=== PATIENT | female | born 1945 | race Caucasian/White ===

== ENCOUNTER → 2016-06-09 | Outpatient (CLI) | payer OTHER, MEDICARE ==
[~2016-06-09] MED LIST: ACET-1311 PO; ANAS1TAB6 PO; AREDIA IV; ASCA500 PO; BIOTCAP2 PO; BISA-16 PO; CALC625T13 PO; CHEMO INFUSION IV; DENOINJ; DENOINJ INJ; DOCU-94 PO; FAMO10TA16 PO; IBUP-1050 PO; MCLIN; MCLIN INH; MCRK20 PO; NYSS5 PO; ONDA8TAB6 PO; OPTIRAY 320 IV PRN; POLY1POW2 PO; POTA20TA16 PO; POTTAB2 PO; PRED10TA PO; PROC1TAB5 PO; ZOLE1INJ IV
--- NOTE | 2016-06-09 13:45 | DIAGNOSTIC IMAGING REPORT ---
CT OF THE CHEST WITH IV CONTRAST CLINICAL HISTORY: Breast cancer. COMPARISON STUDY: Chest CT July 16, 2015. TECHNIQUE: Following IV administration of 93 mL of Optiray-320, helical axial images of the chest were obtained. Images were viewed in the axial, sagittal and coronal planes. IV contrast was administered without complication. FINDINGS: No enlarged axillary, mediastinal or hilar lymph nodes are present. Cardiac size is at the upper limits of normal. There is no pericardial effusion. Central airways are patent. There is no consolidation. No pneumothorax or pleural effusion is noted. There is a 4 mm calcified granuloma within the right lower lobe. A 3 mm right middle lobe nodule shown on image [id number] and a 2 mm subpleural right upper lobe nodule shown image [address] of July 16, 2015. There are no new pulmonary nodules. Diffuse heterogeneity of visualized skeletal structures is noted. A expansile destructive lesion of the posterior right ninth rib is noted. Bony expansion with suspected extrapleural extension has slightly progressed since exam July 16, 2015. The abdomen and pelvis will be reported separately. IMPRESSION: 1. Slight increase in bony expansion and soft tissue extension of the right ninth rib metastasis since CT of July 16, 2015. 2. Diffuse heterogeneity of visualized skeletal structures. The finding is nonspecific although diffuse metastatic disease could have this imaging appearance. 3. No change in several small right lung nodules. No new lung nodules. No thoracic lymphadenopathy. Electronically signed by: Immanuel Garcia M.D. 06/09/2016 1:43 PM Dictated Date/Time: 06/09/2016 1:27 PM
--- NOTE | 2016-06-09 13:45 | DIAGNOSTIC IMAGING REPORT ---
CT ABD/PELVIS IV AND ORAL CONT CLINICAL HISTORY: BREAST CA COMPARISON STUDY: 07/16/2015 TECHNIQUE: Following the IV administration of 93 mL of Optiray-320, CT scan of the abdomen and pelvis was performed from the lung bases to the proximal femurs. Images are reviewed in the axial, sagittal, and coronal planes. IV contrast was administered without complication. CT DOSE: 708.57 mGy.cm FINDINGS: Lower chest: There are expansile destructive changes involving the right ninth rib. Liver: There is mild hepatic steatosis. No focal masses are visualized. Gallbladder: Unremarkable. Spleen: Normal in size and attenuation. Pancreas: No masses are visualized Adrenal glands: Unremarkable. Kidneys: There is stable upper pole left renal cortical scarring. Small renal cysts are visualized. There is a 2 mm nonobstructing right renal calculus. Bowel: There are no transition zones indicate bowel obstruction. There is no acute diverticulitis. There are no findings to indicate acute appendicitis. There is mild rectal wall thickening. Peritoneum: There is no intraperitoneal free air or abdominal ascites. Vasculature: The abdominal aorta is normal in course and caliber. Adenopathy: There are mildly prominent ileocolic lymph nodes, similar to the preceding study. Pelvic viscera: There is mild rectal wall thickening. Skeletal structures: There is an abnormal trabecular pattern of the bone. The findings could be secondary to myeloma, diffuse metastatic disease, or herringbone osteoporosis IMPRESSION: 1. Stable abnormal trabecular pattern of the bone 2. Expansile destructive lesion involving the right ninth rib, slightly progressive when compared the prior July 2015 study. No evidence of bowel obstruction. No evidence of free air 4. Mild rectal wall thickening 5. Mildly prominent ileocolic lymph nodes, unchanged the prior study Electronically signed by: Vinny Hoyt M.D. 06/09/2016 1:44 PM Dictated Date/Time: 06/09/2016 1:37 PM
--- NOTE | 2016-06-09 15:04 | DIAGNOSTIC IMAGING REPORT ---
WHOLE BODY BONE SCAN HISTORY: Breast carcinoma BREAST CA RADIOTRACER: 25.4 mCi Tc-99m MDP STUDY/IMAGES: Planar anterior and posterior whole body imaging was performed 3 hours following the intravenous administration of radiotracer. COMPARISON: None. FINDINGS: Increased activity involving the posterior right 10th rib. This is consistent with patient's known metastatic deposit at that site. Increased symmetrical activity about skull possibly secondary to respiratory change versus hyperostosis frontalis. Mild degenerative change of the osseous structures of the shoulders hips and knees. No abnormal soft tissue activity characteristics. IMPRESSION: Metastatic change involving the right 10th rib posteriorly. Bone scan otherwise is negative for additional metastatic deposits. Electronically signed by: Froy Ridley M.D. 06/09/2016 3:02 PM Dictated Date/Time: 06/09/2016 2:58 PM
== END | disposition home or self-care (01) ==
LOC: C.CTS 10:26
PROVIDERS: ATTEND Nurse Practitioner Family
DX: C50.919 Malignant neoplasm of unspecified site of unspecified female breast (principal); M89.8X8 Other specified disorders of bone, other site; R91.8 Other nonspecific abnormal finding of lung field

== ENCOUNTER 2016-07-28 11:21 | Inpatient (IN) | payer OTHER, MEDICARE ==
[~2016-07-28] VITALS: Ht 162.6 cm; Wt 74.2 kg
[~2016-07-28 11:21] MED LIST changes: -ACET-1311 PO; -AREDIA IV; -ASCA500 PO; -BIOTCAP2 PO; -BISA-16 PO; -CALC625T13 PO; -CHEMO INFUSION IV; -DENOINJ; -DENOINJ INJ; -DOCU-94 PO; -FAMO10TA16 PO; -IBUP-1050 PO; -MCLIN; -MCLIN INH; -MCRK20 PO; -NYSS5 PO; -ONDA8TAB6 PO; -OPTIRAY 320 IV PRN; -POLY1POW2 PO; -POTA20TA16 PO; -POTTAB2 PO; -PRED10TA PO; -PROC1TAB5 PO; -ZOLE1INJ IV
[2016-07-28] MEDS ORDERED: BISA-16 PO (12:41)
[2016-07-28] MEDS ORDERED: ONDA8TAB6 PO (12:41)
[2016-07-28] MEDS ORDERED: PROC1TAB5 PO (12:41)
[2016-07-28] MEDS ORDERED: POLY1POW2 PO (12:41)
[2016-07-28 13:53] VITALS: BP 117/75; PULSE 92; TEMP 36.5; O2SAT 95
[2016-07-28] MEDS ORDERED: ACETAMINOPHEN 325 MG TAB PO PRN (14:00)
[2016-07-28] MEDS ORDERED: ALUMINUM/MAGNESIUM/SIMETH (MAALOX MAX) 30 ML UDC PO PRN (14:00)
[2016-07-28] MEDS ORDERED: MAGNESIUM HYDROXIDE SUSP 30 ML UDC PO PRN (14:00)
[2016-07-28] MEDS ORDERED: POLYETHYLENE (MIRALAX) 17 GM PACK PO PRN (14:00)
--- NOTE | 2016-07-28 14:05 | History and Physical ---
History & Physical Date & Time of Service: Jul 28, 2016 at 13:47 Chief Complaint: Hypercalcemia Primary Care Physician: Willie Gutierrez D.O. History of Present Illness Source: patient, family 71F with a PMHx of Metastatic breast cancer (T9 and T10 ribs) was sent over from the cancer center for hypercalcemia by Dr. oDlan. Pt is complaining of dizziness, decrease appetite, weakness and reports vomiting up large amounts of food. She is also constipated by the last BM was yesterday, a soft stool of small amount. Pt denies abdominal pain. pt denies having a cardiac history of any sort. According to pt her calcium has been slowly increasing and she has been getting an injection for the calcium. She was told that her injection would take 4-5 days to take affect. She last got the injection on Tuesday but she wasn't sure. She doesn't know the name of the medication. *Update*: on chart review pt appears to have received Monthly doses of Zometa at around the of each month. This is likely the injection she received on Tuesday. ROS: No chest pain, no SOB, no muscle cramps, no muscle aches, no psychosis. PMHx: Other than breast CA, no significant PMHx. Meds: Anastrazole + nausea meds SHx: Lives w . Social History Smoking Status: Never Smoker Allergies Coded Allergies: No Known Allergies (Unverified , 05/19/16) Home Medications Scheduled Anastrozole (Anastrozole), 1 TAB PO QAM Prochlorperazine Maleate (Compazine), 10 MG PO Q6H Scheduled PRN Bisacodyl (Dulcolax), 1 TAB PO UD PRN for Constipation Ondansetron Hcl (Zofran), 8 MG PO Q8 PRN for Nausea Polyethylene Glycol 3350 (Bulk (Polyethylene Glycol 3350), 17 GM PO DAILY PRN for Constipation Physical Exam General Appearance: WD/WN, no apparent distress Respiratory/Chest: chest non-tender, lungs clear, normal breath sounds, no respiratory distress, no accessory muscle use Cardiovascular: regular rate, rhythm, no edema, no gallop, no JVD, no murmur, normal peripheral pulses Abdomen/GI: non tender, soft, no organomegaly, no pulsatile mass, normal rectal exam Extremities/Musculoskelatal: no pedal edema, normal range of motion, + pertinent finding (tenderness of ribs on T9 and T10. ) Neurologic/Psych: normal mood/affect, normal reflexes, oriented x 3 Diagnostics Diagnostic Radiology Sinus rhythm with 1st degree A-V block Low voltage QRS Borderline ECG No previous ECGs available Impression Assessment and Plan 71F with PMHx of Metastatic Breast Cancer sent for hypercalcemia from Dr. Dolan' s office. Symptoms include dizziness, weakness, vomiting large meals and constipation. Hypercalcemia - 1L fluid bolus now. NSS at 150mls/hr. - EKG in chart, grossly normal. EKG PRN for chest pain. - Pt appears to have been started on a bisphosphonate, Zometa, will hold additional bisphosphonates at this time. - Calcitonin 340mg IV now (4mgs / kg), will follow up BMP at 11pm at night. If remains elevated consider repeat dose of calcitonin. - f/u PTH, PTrP, Vit D - Low Lactose Diet. - BMP and ionized calcium tomorrow morning. Metastatic Breast cancer - Continue Anastrazole 1mg daily (confirm dose) Constipation - Miralax cup 17g once daily. Dispo: Med Surg, Obs Diet: Low Lactose Code: Full I personally and independently interviewed and examined the patient I reviewed labs and imaging I agree with above mentioned physical exam, History and ROS I discussed and formulated the assessment and plan with Mrs. Breen 71-year-old female with Hx of metastatic breast cancer to bones. last chemo was a month ago, currently is on Anastrazole started having symptomatic hypercalcemia, received bisphosphonate twice before with benefit rest of ROS is positive for nausea, dizziness and presyncope PE is normal assessment: metastatic breast cancer to bones. Hypercalcemia Plan: Calcitonin IVF hydration with lasix if needed order PTH, PTrP, Vit D Sandra Benoit [facility] Hospitalist Resident Involvement: Resident Care Provided Care Provided: Adult Hospital Medicine
[2016-07-28] MEDS ORDERED: SODIUM CHLORIDE 0.9% 1000ML 1,000 ML IV SCH (14:15)
[2016-07-28 14:45] VITALS: BP 117/75; PULSE 92; TEMP 36.5; O2SAT 95; BMI 32.4
[2016-07-28] MEDS ORDERED: IV FLUIDS COMPLETED PRN (14:45)
[2016-07-28 15:07] LABS: CREATININE 0.84 mg/dl (0.60-1.20); INR 1.1 (0.9-1.1); PROTHROMBIN TIME (PATIENT) 12.2 SECONDS (9.0-12.0)
[2016-07-28] MEDS: ENOXAPARIN 40 MG/0.4 ML SYR SQ SCH (15:27)
[2016-07-28] MEDS ORDERED: CALCITONIN SALMON 400 INTER.UNIT/2 ML SQ ONE (15:30)
[2016-07-28] MEDS ORDERED: POLYETHYLENE (MIRALAX) 17 GM PACK PO ONE (15:30)
[2016-07-28] MEDS: SODIUM CHLORIDE 0.9% 1000ML 1,000 ML IV SCH ×2 (16:29→22:51)
[2016-07-28 19:06] VITALS: BP 109/70; PULSE 91; TEMP 36.4; O2SAT 96
[2016-07-28 23:16] VITALS: BP 106/69; PULSE 77; TEMP 36.4; O2SAT 97
[2016-07-28 23:47] LABS: BUN/CREATININE RATIO 15.4 (10-20); CALCIUM 10.6 mg/dl (8.5-10.1); CREATININE 0.73 mg/dl (0.60-1.20)
[2016-07-29] MEDS: SODIUM CHLORIDE 0.9% 1000ML 1,000 ML IV SCH ×2 (04:40→11:33)
[2016-07-29 06:14] LABS: COMPLETE YES; EOS % 0.1 %; HEMATOCRIT 26.5 % (37-47); IG% 0.2 %; LYMPH % 25.6 %; LYMPH ABS # 2.16 K/uL (1.2-3.4); MEAN CELL VOLUME 97.8 fL (80-100); MEAN CORPUSCULAR HEMOGLOBIN 33.9 pg (25-34); MEAN CORPUSCULAR HGB CONC 34.7 g/dl (32-36); MEAN PLATELET VOLUME 10.5 fL (7.4-10.4); MONO % 7.3 %; NEUT % 66.8 %; PLATELET COUNT 76 K/uL (130-400); RED BLOOD COUNT 2.71 M/uL (4.2-5.4); WHITE BLOOD COUNT 8.45 K/uL (4.8-10.8)
[2016-07-29 06:54] VITALS: BMI 28.0
[2016-07-29 06:58] LABS: CALCIUM 9.9 mg/dl (8.5-10.1); CREATININE 0.51 mg/dl (0.60-1.20); POTASSIUM 2.9 mmol/L (3.5-5.1)
[2016-07-29 07:30] LABS: PHOSPHORUS 1.2 mg/dl (2.5-4.9)
[2016-07-29 07:31] VITALS: BP 93/54; PULSE 70; TEMP 36.3; O2SAT 100
[2016-07-29] MEDS: POLYETHYLENE (MIRALAX) 17 GM PACK PO SCH (08:07)
[2016-07-29] MEDS: ONDANSETRON INJ 2 MG/ML 2 ML VIAL IV PRN ×2 (08:07→16:37)
[2016-07-29] MEDS: ANASTROZOLE 1 MG TAB PO SCH (08:11)
[2016-07-29] MEDS ORDERED: NURSING VERBAL MED ORDER ONE (08:15)
[2016-07-29] MEDS ORDERED: POTASSIUM CHLORIDE 10 MEQ TABCR PO STA ×2 (08:32→14:32)
[2016-07-29] MEDS ORDERED: POTASSIUM CHLR 20 MEQ / WTR 40 MEQ in PREMIXED WATER 100 ML IV STA (08:32)
[2016-07-29] MEDS ORDERED: POTASSIUM PHOSPHATE INJ 24 MMOL in SODIUM CHLORIDE 0.9% 500ML 500 ML IV SCH ×4 (09:00)
[2016-07-29 11:22] VITALS: BP 108/68; PULSE 73; TEMP 36.5; O2SAT 99
--- NOTE | 2016-07-29 11:56 | Discharge Instructions ---
Discharge Instructions Date of Service Jul 29, 2016. Admission Reason for Admission: Hypercalcemia Discharge Discharge Diagnosis / Problem: Hypercalcemia, intractable nausea and vomiting, dehydration Discharge Goals Goal(s): Decrease discomfort, Improve function, Increase independence, Improve disease control Activity Recommendations Activity Limitations: resume your previous activity Lifting Limitations: no more than 25 pounds, gradually increase as tolerated Exercise/Sports Limitations: rest today, gradually increase as tolerated May Resume Sexual Activity: when tolerated Shower/Bathe: no limitations Driving or Machine Use: no limitations . Instructions / Follow-Up Instructions / Follow-Up You were admitted to [facility] with nausea, vomiting, altered mental status and diagnosed with hypercalcemia with nausea, vomiting and dehydration. During your stay here you were treated with intravenous fluids for hydration and a medication called calcitrol to help lower your serum calcium. - Your symptoms improved. Your calcium level trended downward and your nausea and vomiting subsided. Please follow up with your PCP within 1 week and have a repeat chemistry panel and complete blood count drawn. Follow up with Oncology within 1-2 weeks. Follow up with Nephrology as scheduled, an appointment has been requested for you. Current Hospital Diet Patient's current hospital diet: Low Lactose Diet Discharge Diet Recommended Diet: Low Lactose Diet Pending Studies Studies pending at discharge: no Medical Emergencies . Who to Call and When: Medical Emergencies: If at any time you feel your situation is an emergency, please call 911 immediately. . Non-Emergent Contact Non-Emergency issues call your: Primary Care Provider Call Non-Emergent contact if: you have a fever, temperature is above 100.5, your pain is not controlled, your pain is worsening, your pain is unusual for you, your pain is concerning you, you have any medication questions Please call your PCP or go directly to the ER if you experience chest pain, shortness of breath, abdominal pain, nausea, vomiting, diarrhea, or if you notice increased confusion, or if you have any other concerns regarding your health. . Past History Medical & Surgical History: (1) Hypercalcemia . "Provider Documentation" section prepared by Libby Avilez. Attending Attestation: Pt seen/examined and discharge care plan d/w GUILLE Avilez. I agree w/ her discharge instructions as outlined. Lokesh Monson MD . VTE Core Measure Inpt VTE Proph given/why not?: Ady Dupont, SCD's
--- NOTE | 2016-07-29 12:05 | Hospitalist Progress Note ---
Hospitalist Progress Note Date of Service Jul 29, 2016. (Kerry Avilez PA-C) Subjective Pt evaluation today including: conversation w/ patient, conversation w/ family , physical exam Pain: None PO Intake: Good Voiding: no voiding problems The patient was seen and examined this morning. Pt reports feeling much better this morning compared to yesterday. She has been tolerating an oral diet without difficulty. She denies nausea or vomiting. She has been urinating frequently due to the volume of fluids she got in the cancer center yesterday, and since being on continuous fluids. She denies any type of dysuria. Her strength is improved today, and she is able to talk without any difficulty. Constitutional: No fever, No chills, No sweats, No fatigue Eyes: No redness, No diplopia ENT: No sore throat, No tinnitus, No trouble swallowing Respiratory: No cough, No sputum, No wheezing, No shortness of breath, No dyspnea at rest Cardiovascular: No chest pain, No palpitations Abdomen: No pain, No nausea, No vomiting, No diarrhea, No constipation Musculoskeletal: No joint pain, No muscle pain, No swelling, No calf pain Female : No dysuria Neurologic: No memory loss, No weakness, No numbness/tingling Endo: No fatigue Skin: No rash, No itch (Kerry Avilez PA-C) Objective Vital Signs Date Time Temp Pulse Resp B/P (MAP) Pulse Ox O2 Delivery O2 Flow Rate FiO2 07/29/16 11:22 36.5 73 18 108/68 (81) 99 07/29/16 08:20 Room Air 07/29/16 07:31 36.3 70 18 93/54 (67) 100 Room Air 07/29/16 00:01 Room Air 07/28/16 23:16 36.4 77 18 106/69 (81) 97 Room Air 07/28/16 19:57 Room Air 07/28/16 19:06 36.4 91 20 109/70 (83) 96 Room Air 07/28/16 14:45 36.5 92 16 117/75 95 07/28/16 13:53 36.5 92 16 117/75 (89) 95 (Kerry Avilez PA-C) Physical Exam General Appearance: WD/WN, no apparent distress Eyes: normal inspection, EOMI ENT: hearing grossly normal, + pertinent finding (+ bony growth overlying the hard palate) Neck: supple, no JVD Respiratory/Chest: lungs clear, no respiratory distress, no accessory muscle use Cardiovascular: regular rate, rhythm, no murmur Abdomen: normal bowel sounds, non tender, soft Extremities: non-tender, no pedal edema, no calf tenderness Neurologic/Psychiatric: no motor/sensory deficits, alert, normal mood/affect, oriented x 3 Skin: normal color, warm/dry (Kerry Avilez, RUBEN) Laboratory Results Last 24 Hours Test 07/28/16 14:40 07/28/16 15:45 07/28/16 23:20 07/29/16 05:35 Prothrombin Time 12.2 SECONDS Prothromb Time International Ratio 1.1 Creatinine 0.84 mg/dl 0.73 mg/dl 0.51 mg/dl Est Creatinine Clear Calc Drug Dose 65.3 ml/min 75.2 ml/min 101.2 ml/min Estimated GFR () 81.6 96.7 112.9 Estimated GFR (Non- 70.4 83.4 97.4 25-Hydroxy Vitamin D Total 16.6 ng/ml Hepatitis C Antibody Screen NEG Parathyroid Hormone (Intact) < 5.5 pg/mL Sodium Level 141 mmol/L 142 mmol/L Potassium Level 4.0 mmol/L 2.9 mmol/L Chloride Level 109 mmol/L 111 mmol/L Carbon Dioxide Level 25 mmol/L 22 mmol/L Anion Gap 7.0 mmol/L 9.0 mmol/L Blood Urea Nitrogen 11 mg/dl 9 mg/dl BUN/Creatinine Ratio 15.4 18.0 Random Glucose 118 mg/dl 84 mg/dl Calcium Level 10.6 mg/dl 9.9 mg/dl White Blood Count 8.45 K/uL Red Blood Count 2.71 M/uL Hemoglobin 9.2 g/dL Hematocrit 26.5 % Mean Corpuscular Volume 97.8 fL Mean Corpuscular Hemoglobin 33.9 pg Mean Corpuscular Hemoglobin Concent 34.7 g/dl Platelet Count 76 K/uL Mean Platelet Volume 10.5 fL Neutrophils (%) (Auto) 66.8 % Lymphocytes (%) (Auto) 25.6 % Monocytes (%) (Auto) 7.3 % Eosinophils (%) (Auto) 0.1 % Basophils (%) (Auto) 0.0 % Neutrophils # (Auto) 5.64 K/uL Lymphocytes # (Auto) 2.16 K/uL Monocytes # (Auto) 0.62 K/uL Eosinophils # (Auto) 0.01 K/uL Basophils # (Auto) 0.00 K/uL RDW Standard Deviation 70.2 fL RDW Coefficient of Variation 19.4 % Immature Granulocyte % (Auto) 0.2 % Immature Granulocyte # (Auto) 0.02 K/uL Ionized Calcium 1.41 mmol/l Phosphorus Level 1.2 mg/dl Magnesium Level 2.0 mg/dl Total Bilirubin 0.9 mg/dl Aspartate Amino Transf (AST/SGOT) 91 U/L Alanine Aminotransferase (ALT/SGPT) 75 U/L Alkaline Phosphatase 101 U/L Total Protein 6.2 gm/dl Albumin 3.1 gm/dl Globulin 3.1 gm/dl Albumin/Globulin Ratio 1.0 (Kerry Avilez PA-C) Assessment and Plan 71F with PMHx of Metastatic Breast Cancer sent for hypercalcemia from Dr. Dolan' s office. Symptoms include dizziness, weakness, vomiting large meals and constipation. Hypercalcemia - IVFs @150mls/hr for rehydration - EKG in chart, grossly normal. - Pt appears to have been started on a bisphosphonate, Zometa, will hold additional bisphosphonates at this time. she receives this once monthly injection, last administered on Tuesday per pt report.. - Calcitonin 340mg IV now (4mgs / kg), Ca decreased to 9.8 this morning. - f/u PTH = < 5.5, PTrP pending, Vit D= 16.6 - Low Lactose Diet. Hypokalemia Hypophosphatemia - Replaced lytes this morning, will recheck a BMP this afternoon. Vitamin D Deficiency - Vit D =16.6, will start on supplement. Metastatic Breast cancer - Continue Anastrazole 1mg daily (confirm dose) Constipation - Miralax cup 17g once daily. Diet: Low Lactose Code: Full Code Disposition: From home, likely discharge later today pending repeat BMP (Kerry Avilez PA-C) Attending Attestation & Admission Note: Pt seen/examined, chart reviewed, and care plan d/w GUILLE Avilez. I agree w/ the aldana components of her documentation. Pt feeling much better. All GI symptoms resolved. VSS no fever gen - nad mouth - MMM heart - RRR lungs - CTA b/l abd - soft, NT, no HSM ext - no edema A/P: 1. hypercalcemia - much improved, now just mildly high. s/p IV bisphosphonate. Will ask nephrology for their opinion with this. 2. hypophosphatemia - improving but still low; another run of IV K-phos. 3. hypokalemia - improving, but still low; continue IV/PO replacement. 4. metastatic breast ca - noted. hopefully home tomorrow Tenzin MONSON MD (Lokesh Monson MD)
[2016-07-29 14:02] LABS: CALCIUM 10.4 mg/dl (8.5-10.1); CREATININE 0.57 mg/dl (0.60-1.20); POTASSIUM 2.9 mmol/L (3.5-5.1)
[2016-07-29 15:56] VITALS: BP 107/67; PULSE 83; TEMP 36.5; O2SAT 97
[2016-07-29 16:02] VITALS: O2SAT 97
[2016-07-29] MEDS: ENOXAPARIN 40 MG/0.4 ML SYR SQ SCH (16:37)
[2016-07-29] MEDS: POTASSIUM CHLORIDE INJ 20 MEQ in SODIUM CHLORIDE 0.9% 1000ML 1,000 ML IV SCH ×2 (16:37→22:15)
[2016-07-29] MEDS: POTASSIUM CHLORIDE 20 MEQ TABCR PO SCH ×2 (16:38→20:50)
[2016-07-29 19:30] VITALS: BP 107/64; PULSE 88; TEMP 36.7; O2SAT 97
[2016-07-29 20:44] LABS: FERRITIN 650.2 ng/ml (8.0-388.0); PHOSPHORUS 1.3 mg/dl (2.5-4.9); THYROID STIMULATING HORMONE 0.866 uIu/ml (0.300-4.500)
[2016-07-29] MEDS ORDERED: POTASSIUM PHOS 3 MMOL/1 ML INFUSION IV STA (22:33)
[2016-07-29 23:35] VITALS: BP 122/72; PULSE 89; TEMP 36.6; O2SAT 93
[2016-07-30] MEDS ORDERED: POTASSIUM PHOSPHATE INJ 24 MMOL in SODIUM CHLORIDE 0.9% 500ML 500 ML IV SCH ×2
[2016-07-30] MEDS: POTASSIUM CHLORIDE INJ 20 MEQ in SODIUM CHLORIDE 0.9% 1000ML 1,000 ML IV SCH ×2 (04:13→10:58)
[2016-07-30 04:37] VITALS: BP 119/74; PULSE 87; TEMP 36.7; O2SAT 95
[2016-07-30 05:58] VITALS: Ht 162.6 cm; Wt 74.2 kg
[2016-07-30 06:39] LABS: BUN/CREATININE RATIO 14.1 (10-20); CALCIUM 10.8 mg/dl (8.5-10.1); CREATININE 0.51 mg/dl (0.60-1.20); PHOSPHORUS 2.3 mg/dl (2.5-4.9); POTASSIUM 4.1 mmol/L (3.5-5.1)
[2016-07-30 07:11] VITALS: BP 108/71; PULSE 81; TEMP 36.3; O2SAT 97
[2016-07-30] MEDS: ONDANSETRON INJ 2 MG/ML 2 ML VIAL IV PRN (07:43)
[2016-07-30] MEDS: POTASSIUM CHLORIDE 20 MEQ TABCR PO SCH ×2 (07:45→14:00)
[2016-07-30] MEDS: ANASTROZOLE 1 MG TAB PO SCH (07:55)
[2016-07-30] MEDS: POLYETHYLENE (MIRALAX) 17 GM PACK PO SCH (07:56)
[2016-07-30] MEDS ORDERED: CHOLECALCIFEROL 1000 INTER.UNIT TAB PO SCH (08:00)
[2016-07-30 11:13] VITALS: BP 118/74; PULSE 76; TEMP 36.4; O2SAT 96
--- NOTE | 2016-07-30 13:40 | Discharge Summary ---
Discharge Summary Date of Service Jul 30, 2016. (Kerry Avilez PA-C) Discharge Summary Admission Date: Jul 29, 2016 at 14:51 Discharge Date: Jul 29, 2016 Discharge Disposition: Home Principal Diagnosis: Hypercalcemia Problems/Secondary Diagnoses: Metastatic Breast Cancer, hypercalcemia, hypokalemia, hypophosphatemia Procedures: None Consultations: Nephrology (Kerry Avilez PA-C) Medication Reconciliation Continued Medications: Anastrozole (Anastrozole) 1 Mg Tab 1 TAB PO QAM Bisacodyl (Dulcolax) 5 Mg Tab 1 TAB PO UD PRN for Constipation for 1 Day, #2 TAB Ondansetron Hcl (Zofran) 8 Mg Tab 8 MG PO Q8 PRN for Nausea, TAB Polyethylene Glycol 3350 (Bulk (Polyethylene Glycol 3350) 1 Pow Pow 17 GM PO DAILY PRN for Constipation for 30 Days, #527 GM 11 Refills Prochlorperazine Maleate (Compazine) 10 Mg Tab 10 MG PO Q6H for Nausea, TAB Discharge Exam The patient was seen and examined this morning. Pt reports feeling well today. She has no acute complaints. She denies abdominal pain, nausea, vomiting, and had a small bowel movement this morning. She reports her appetitie is still not quite as good as she'd like it to be, but this is due to chemo and has been going on for some time. I have requested for nephrology to see her, and she is agreeable to this. She is also willing to see our nephrology team at [facility] on Wednesdays as oupt because she's already traveling on a weekly basis to see Dr. Montes for chemotherapy. Review of Systems: Constitutional: No fever, No chills, No sweats, No fatigue Eyes: No discharge, No diplopia ENT: No sore throat, No tinnitus Respiratory: No sputum, No shortness of breath, No dyspnea on exertion Cardiovascular: No chest pain, No palpitations Abdomen: No pain, No nausea, No vomiting, No diarrhea, No constipation Musculoskeletal: No joint pain, No swelling, No calf pain Genitourinary - Female: No dysuria Neurologic: No numbness/tingling Endocrine: No fatigue Integumentary: No rash, No itch Physical Exam: General Appearance: WD/WN, no apparent distress Eyes: PERRL, EOMI ENT: hearing grossly normal, pharynx normal Neck: supple, no JVD Respiratory/Chest: chest non-tender, lungs clear, no respiratory distress, no accessory muscle use Cardiovascular: regular rate, rhythm, no JVD, no murmur, normal peripheral pulses Abdomen / GI: normal bowel sounds, non tender, soft Extremities: normal inspection, no calf tenderness, no pedal edema Neurologic/Psychiatric: no motor/sensory deficits, alert, oriented x 3 Skin: normal color, warm/dry (Kerry Avilez, PAJuan) Hospital Course H&P per Froy Way MD, resident History of Present Illness Source: patient, family 71F with a PMHx of Metastatic breast cancer (T9 and T10 ribs) was sent over from the cancer center for hypercalcemia by Dr. Dolan. Pt is complaining of dizziness, decrease appetite, weakness and reports vomiting up large amounts of food. She is also constipated by the last BM was yesterday, a soft stool of small amount. Pt denies abdominal pain. pt denies having a cardiac history of any sort. According to pt her calcium has been slowly increasing and she has been getting an injection for the calcium. She was told that her injection would take 4-5 days to take affect. She last got the injection on Tuesday but she wasn't sure. She doesn't know the name of the medication. Physical Exam General Appearance: WD/WN, no apparent distress Respiratory/Chest: chest non-tender, lungs clear, normal breath sounds, no respiratory distress, no accessory muscle use Cardiovascular: regular rate, rhythm, no edema, no gallop, no JVD, no murmur, normal peripheral pulses Abdomen/GI: non tender, soft, no organomegaly, no pulsatile mass, normal rectal exam Extremities/Musculoskelatal: no pedal edema, normal range of motion, + pertinent finding (tenderness of ribs on T9 and T10. ) Neurologic/Psych: normal mood/affect, normal reflexes, oriented x 3 Hospital Course: 71F with PMHx of Metastatic Breast Cancer sent for hypercalcemia from Dr. Dolan' s office. Symptoms include dizziness, weakness, vomiting large meals and constipation. Hypercalcemia - IVFs can be turned off, she is tolerating oral diet well. - EKG in chart, grossly normal. - Pt appears to have been started on a bisphosphonate, Zometa, will hold additional bisphosphonates at this time. she receives this once monthly injection, last administered on Tuesday per pt report. - Calcitonin 340mg IV now (4mgs / kg), Ca decreased to 10.8 today. - Nephrology consulted for hypercalcemia, pt is ok with following here at [facility] because she is already here for weekly infusion with cancer center. I spoke with Dr. Dempsey who will see her today for consultation. She travels to see Dr. Montes as he has been following her since her initial diagnosis in [place]. - f/u PTH = < 5.5, PTrP pending, Vit D= 16.6 - Low Lactose Diet. Hypokalemia Hypophosphatemia - Resolved s/p replacement - K 4.1 and phos is low but improved to 2.3 Vitamin D Deficiency - Vit D =16.6, will start on supplement. Metastatic Breast cancer - Continue Anastrazole 1mg daily (confirm dose) Constipation - Miralax cup 17g once daily. Diet: Low Lactose Code: Full Code Disposition: From home,discharge home today. Total Time Spent: Greater than 30 minutes This includes examination of the patient, discharge planning, medication reconciliation, and communication with other providers. (Kerry Avilez PA-C) Attending Discharge Note & Attestation: Pt seen/examined, chart reviewed, and care plan d/w GUILLE Avilez. I agree w/ the aldana components of her discharge summary. 71yo female with stage 4 breast cancer who presented with hypercalcemia, hypokalemia, and hypophosphatemia. She was treated for the hypercalcemia with IVF/calcitonin, and low K/Phos were both replaced. She was seen in consult by nephrology and she will have outpatient follow-up with them for surveillance. Total calcium level on day of discharge was 10.8. Intact PTH was normal; PTH-related peptide was pending at time of discharge. It is presumed, however, that her hypercalcemia was related to her breast cancer. Discharge exam: gen - nad mouth - MMM heart - RRR lungs - CTA b/l abd - soft, NT, ND, BS+ ext - no edema Repeat BMP/mag/phos is planned for 08/04/16. Lokesh Monson MD (Lokesh Monson MD) Discharge Instructions Please refer to the electronic Patient Visit Report (Discharge Instructions) for additional information. (Kerry Avilez PA-C) Follow-Up Follow up with your Primary Care Provider within 1 week. Follow up with nephrology within 1-2 weeks. Follow up with hematology/oncology as already scheduled. (Kerry Avilez PA-C) 1. Dr. Cade - [facility] Nephrology - August 11 at 10:00 AM 2. repeat BMP, magnesium, and phosphorus - 08/04/16 (Lokesh Monson MD) Additional Copies To Willie Gutierrez D.O.; Avis Cade MD
[2016-07-30 14:52] VITALS: BP 135/76; PULSE 91; TEMP 36.5; O2SAT 98
[2016-07-30] MEDS ORDERED: NURSING VERBAL MED ORDER ONE (15:15)
[2016-07-30] MEDS: ENOXAPARIN 40 MG/0.4 ML SYR SQ SCH (16:00)
[2016-07-30 16:22] VITALS: O2SAT 97
[2016-07-30 18:16] VITALS: BP 135/76; PULSE 91; TEMP 36.5; O2SAT 98
--- NOTE | 2016-07-30 19:12 | Nephrology Consultation ---
Nephrology Consultation Date & Providers Date of Consultation: Jul 30, 2016. Primary Care Provider: Willie Gutierrez D.O. Referring Provider: Reason for Consultation Hypercalcemia History of Present Illness Elisha Hernandez is a 71-year-old female who was seen and evaluated in her hospital room this afternoon. Medical records were reviewed in detail. I discussed the plan of care with Dr. Schulte this afternoon. Elisha was admitted to [facility] with symptoms of constipation and fatigue. She reports that rather than constipation she has not been moving her bowels due to decreased oral intake. Her appetite has been very poor. Her activity tolerance is slowly decreasing. She experiences intermittent nausea and post prandial discomfort. It is not uncommon for her to experience emesis after eating a full meal. We discussed her medical concerns in detail with her at the bedside. She remains concerned regarding persistently elevated calcium levels despite treatment with Zometa. She has also been maintained on maintenance infusions of saline. Past Medical/Surgical History Medical: Metastatic breast cancer Surgical: Resection of metastasis cancer above clavicle, bone marrow biopsy Allergies Coded Allergies: No Known Allergies (Unverified , 05/19/16) Inpatient Medications Current Inpatient Medications Medications (Trade) Dose Ordered Sig/Danika Route Start Time Stop Time Status Last Admin Dose Admin Enoxaparin Sodium (Lovenox Inj) 40 mg Q24H SQ 07/28/16 16:00 08/27/16 15:59 07/29/16 16:37 40 MG Acetaminophen (Tylenol Tab) 650 mg Q4H PRN PO 07/28/16 14:00 08/27/16 13:59 Al Hydrox/Mg Hydrox/Simethicone (Maalox Max Susp) 15 ml Q4H PRN PO 07/28/16 14:00 08/27/16 13:59 Magnesium Hydroxide (Milk Of Magnesia Susp) 30 ml Q6H PRN PO 07/28/16 14:00 08/27/16 13:59 Polyethylene (Miralax Powder Packet) 17 gm DAILY PRN PO 07/28/16 14:00 08/27/16 13:59 Ondansetron HCl (Zofran Inj) 4 mg Q6H PRN IV 07/28/16 14:00 08/27/16 13:59 07/30/16 07:43 4 MG Miscellaneous (Iv Fluids Completed) 1 ea PRN PRN N/A 07/28/16 14:45 07/28/17 14:44 Polyethylene (Miralax Powder Packet) 17 gm DAILY PO 07/29/16 08:00 08/28/16 07:59 07/30/16 07:56 17 GM Anastrozole (Arimidex Tab) 1 mg QAM PO 07/29/16 08:00 08/28/16 07:59 07/30/16 07:55 1 MG Cholecalciferol (Vitamin D Tab) 2,000 inter.unit QAM PO 07/30/16 08:00 08/29/16 07:59 07/30/16 07:44 2,000 INTER.UNIT Potassium Chloride (Klor-Con Tab) 40 meq TID PO 07/29/16 14:30 08/28/16 14:29 07/30/16 07:45 40 MEQ Social History Smoking Status: Never Smoker Review of Systems Constitutional: + weakness, + fatigue, No fever, No chills, No weight loss Respiratory: No dyspnea at rest Cardiovascular: No edema Abdomen: + nausea, + vomiting, + constipation Hematologic / Lymphatic: No abnormal bleeding/bruising Integumentary: No rash A complete review of systems was performed. Pertinent positives are noted above. All other systems are negative. Physical Exam Date Time Temp Pulse Resp B/P (MAP) Pulse Ox O2 Delivery O2 Flow Rate FiO2 07/30/16 18:16 36.5 91 18 98 Room Air 07/30/16 14:52 36.5 91 18 135/76 (95) 98 07/30/16 11:13 36.4 76 20 118/74 (89) 96 07/30/16 08:05 Room Air 07/30/16 07:11 36.3 81 18 108/71 (83) 97 Room Air 07/30/16 04:37 36.7 87 19 119/74 (89) 95 Room Air 07/30/16 00:43 Room Air 07/29/16 23:35 36.6 89 18 122/72 (89) 93 Room Air 07/29/16 19:30 36.7 88 20 107/64 (78) 97 Room Air General Appearance: WD/WN, no apparent distress Head: normocephalic, atraumatic Eyes: normal inspection, sclerae normal ENT: normal ENT inspection, pharynx normal Neck: supple, no JVD Respiratory/Chest: lungs clear, no respiratory distress, no accessory muscle use Cardiovascular: regular rate, rhythm, no gallop Abdomen/GI: non tender, soft Back: normal inspection, no muscle spasm Neurologic/Psych: alert, oriented x 3 Skin: normal color Laboratory Results Last 24 Hours Test 07/29/16 19:45 07/30/16 05:17 Potassium Level 3.0 mmol/L 4.1 mmol/L Phosphorus Level 1.3 mg/dl 2.3 mg/dl Ferritin 650.2 ng/ml Vitamin B12 Level 880 pg/mL Folate 7.08 ng/mL Thyroid Stimulating Hormone (TSH) 0.866 uIu/ml Sodium Level 144 mmol/L Chloride Level 114 mmol/L Carbon Dioxide Level 20 mmol/L Anion Gap 10.0 mmol/L Blood Urea Nitrogen 7 mg/dl Creatinine 0.51 mg/dl Est Creatinine Clear Calc Drug Dose 101.3 ml/min Estimated GFR () 112.9 Estimated GFR (Non- 97.4 BUN/Creatinine Ratio 14.1 Random Glucose 79 mg/dl Calcium Level 10.8 mg/dl Impression (1) Hypercalcemia Elisha is a 71 year-old female with metastatic breast cancer. She is maintained on Arimidex. She has anorexia and multiple electrolyte abnormalities including hypercalcemia. I suspect some of these can be related to anorexia and poor oral intake. She is hypoalbuminemic. She has normal renal function. In fact, creatinine is low consistent with her nutritional status. Her corrected calcium on admission was 11.3. She was volume depleted. We discussed her history in detail today. I offered to discuss more with Dr. Montes. 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 Denosumab was also be another consideration to help control hypercalcemia. The patient and I agreed that ultimately close outpatient follow up would likely work best. She will repeat a metabolic profile with magnesium and phosphorus next Tuesday. I have arranged for her to follow up with Dr. Cade in the nephrology clinic on August 11 at 10:00 AM. Elisha was agreeable to this plan of care.
[2016-08-08] MEDS ORDERED: MCLIN (10:00)
[2016-08-08] MEDS ORDERED: MCRK20 PO (10:00)
[2016-08-18] MEDS ORDERED: NYSS5 PO (15:59)
[2016-08-25] MEDS ORDERED: FAMO10TA16 PO (01:25)
== END 2016-07-30 19:20 | disposition home or self-care (01) | DRG 641 ==
LOC: C.4E 11:21 → UNDOADMIN 11:21 → C.4E 12:13 → INTOOBSV 12:13 → OBSVTOIN 07-29 14:51
PROVIDERS: ADMIT Internal Medicine; ATTEND Internal Medicine
DX: E83.52 Hypercalcemia (principal); C79.51 Secondary malignant neoplasm of bone; E88.09 Other disorders of plasma-protein metabolism, not elsewhere classified; E87.6 Hypokalemia; E83.39 Other disorders of phosphorus metabolism; E55.9 Vitamin D deficiency, unspecified; K59.00 Constipation, unspecified; C50.919 Malignant neoplasm of unspecified site of unspecified female breast; Z79.899 Other long term (current) drug therapy

== ENCOUNTER 2016-08-05 12:45 | Observation (INO) | payer OTHER, MEDICARE ==
[~2016-08-05] VITALS: Ht 160 cm; Wt 71.3 kg
[~2016-08-05 12:45] MED LIST changes: +BISA-16 PO; +ONDA8TAB6 PO; +POLY1POW2 PO; +PROC1TAB5 PO
[2016-08-05] MEDS ORDERED: SODIUM CHLORIDE 0.9% 1000ML 1,000 ML IV STA ×2 (13:02→13:21)
[2016-08-05] MEDS ORDERED: SODIUM CHLORIDE 0.9% 250ML 250 ML IV STA (13:02)
[2016-08-05 13:21] LABS: HEMATOCRIT 32.8 % (37-47); MEAN CELL VOLUME 96.2 fL (80-100); MEAN CORPUSCULAR HEMOGLOBIN 34.3 pg (25-34); MEAN CORPUSCULAR HGB CONC 35.7 g/dl (32-36); RED BLOOD COUNT 3.41 M/uL (4.2-5.4); WHITE BLOOD COUNT 9.73 K/uL (4.8-10.8)
[2016-08-05 13:31] LABS: MEAN PLATELET VOLUME 10.6 fL (7.4-10.4); PLATELET COUNT 82 K/uL (130-400)
[2016-08-05 13:50] LABS: ALT/SGPT 95 U/L (12-78); AST/SGOT 120 U/L (15-37); BLOOD UREA NITROGEN 18 mg/dl (7-18); BUN/CREATININE RATIO 18.2 (10-20); CALCIUM 14.5 mg/dl (8.5-10.1); CARBON DIOXIDE 28 mmol/L (21-32); CHLORIDE 95 mmol/L (98-107); CREATININE 0.98 mg/dl (0.60-1.20); GLUCOSE 111 mg/dl (70-99); MAGNESIUM 2.5 mg/dl (1.8-2.4); POTASSIUM 3.2 mmol/L (3.5-5.1); SODIUM 130 mmol/L (136-145)
[2016-08-05 14:00] LABS: ALKALINE PHOSPHATASE 119 U/L (45-117); THYROID STIMULATING HORMONE 0.561 uIu/ml (0.300-4.500)
[2016-08-05 14:10] LABS: BASO % 0.1 %; BASO ABS # 0.01 K/uL (0-0.2); COMPLETE YES; EOS % 0.1 %; HYPERSEGMENTED POLYS OCCASIONAL; IG% 0.3 %; LYMPH % 18.5 %; MONO % 6.5 %; NEUT % 74.5 %
--- NOTE | 2016-08-05 14:11 | EMERGENCY ROOM VISIT NOTE ---
History Report prepared by Page: Donavan Cortez Under the Supervision of: Dr. Nicky Lagos M.D. First contact with patient: 13:00 Chief Complaint: DIZZY Stated Complaint: WEAK, DIZZY, NAUSEA, REFERRED BY History of Present Illness The patient is a 71 year old female who presents to the Emergency Room with complaints of persistent dizziness beginning a few weeks ago. She also complains of weakness, and nausea. She has a history of chronic hypercalcemia. The patient was seen by her PCP today and was referred to the ED. She was found to have a blood calcium of 13.5 earlier this week. She has not noticed any significant muscle cramping recently. The patient has no known kidney problems or heart failure. She is currently receiving treatment for breast cancer which has metastasized to her bones. Source of History: patient Onset: A few weeks ago Quality: other (dizziness) Timing: other (persistent) Associated Symptoms: + nausea, + weakness Note: The patient has not noticed any significant muscle cramping recently. Review of Systems See HPI for pertinent positives & negatives. A total of 10 systems reviewed and were otherwise negative. Past Medical & Surgical Medical Problems: (1) Breast cancer (2) Hypercalcemia Family History No pertinent family history stated. Social History Smoking Status: Never Smoker Marital Status: Housing Status: lives with family Current/Historical Medications Scheduled Anastrozole (Anastrozole), 1 TAB PO QAM Prochlorperazine Maleate (Compazine), 10 MG PO Q6H Scheduled PRN Bisacodyl (Dulcolax), 1 TAB PO UD PRN for Constipation Ondansetron Hcl (Zofran), 8 MG PO Q8 PRN for Nausea Polyethylene Glycol 3350 (Bulk (Polyethylene Glycol 3350), 17 GM PO DAILY PRN for Constipation Allergies Coded Allergies: No Known Allergies (Unverified , 08/05/16) Physical Exam Vital Signs Date Time Temp Pulse Resp B/P (MAP) Pulse Ox O2 Delivery O2 Flow Rate FiO2 08/05/16 14:36 83 13 96 08/05/16 14:31 127/71 08/05/16 14:30 96 Room Air 08/05/16 14:15 82 13 95 08/05/16 14:01 118/71 08/05/16 13:45 81 15 95 08/05/16 13:31 125/68 08/05/16 13:21 90 08/05/16 13:15 93 19 96 08/05/16 13:12 121/75 08/05/16 12:50 36.6 98 18 110/71 98 Room Air Physical Exam Vital signs reviewed. General: Elderly, chronically ill appearing female, in no significant distress. HEENT: No scleral icterus, PERRLA, neck supple. Atraumatic. Cardiovascular: Regular rate and rhythm, no extra sounds. Pulmonary: Clear to auscultation bilaterally, normal work of breathing. Abdomen: Soft, nontender, nondistended, positive bowel sounds. Musculoskeletal: Atraumatic, no peripheral edema. Neurologic: Patient awake alert and oriented x 3, full strength in all 4 extremities. Cranial nerves 2 through 12 grossly intact. Skin: Warm, dry, no rash Medical Decision & Procedures Laboratory Results Test 08/05/16 13:11 08/05/16 13:15 Immature Granulocyte % (Auto) 0.3 % White Blood Count 9.73 K/uL (4.8-10.8) Red Blood Count 3.41 M/uL (4.2-5.4) Hemoglobin 11.7 g/dL (12.0-16.0) Hematocrit 32.8 % (37-47) Mean Corpuscular Volume 96.2 fL (80-100) Mean Corpuscular Hemoglobin 34.3 pg (25-34) Mean Corpuscular Hemoglobin Concent 35.7 g/dl (32-36) Platelet Count 82 K/uL (130-400) Mean Platelet Volume 10.6 fL (7.4-10.4) Neutrophils (%) (Auto) 74.5 % Lymphocytes (%) (Auto) 18.5 % Monocytes (%) (Auto) 6.5 % Eosinophils (%) (Auto) 0.1 % Basophils (%) (Auto) 0.1 % Neutrophils # (Auto) 7.25 K/uL (1.4-6.5) Lymphocytes # (Auto) 1.80 K/uL (1.2-3.4) Monocytes # (Auto) 0.63 K/uL (0.11-0.59) Eosinophils # (Auto) 0.01 K/uL (0-0.5) Basophils # (Auto) 0.01 K/uL (0-0.2) Immature Granulocyte # (Auto) 0.03 K/uL (0.00-0.02) Nucleated RBC Absolute Count (auto) 0.05 K/uL (0-0) Nucleated Red Blood Cells % 0.5 % Hypersegmented Polys OCCASIONAL Magnesium Level 2.5 mg/dl (1.8-2.4) Total Bilirubin 1.3 mg/dl (0.2-1) Direct Bilirubin 0.4 mg/dl (0-0.2) Aspartate Amino Transf (AST/SGOT) 120 U/L (15-37) Alanine Aminotransferase (ALT/SGPT) 95 U/L (12-78) Alkaline Phosphatase 119 U/L (45-117) Total Protein 7.7 gm/dl (6.4-8.2) Albumin 3.7 gm/dl (3.4-5.0) Thyroid Stimulating Hormone (TSH) 0.561 uIu/ml (0.300-4.500) Ionized Calcium 1.89 mmol/l (1.12-1.32) Laboratory results per my review. Medications Administered Medications (Trade) Dose Ordered Sig/Danika Route Start Time Stop Time Status Last Admin Dose Admin Sodium Chloride 250 ml @ 999 mls/hr Q16M STAT IV 08/05/16 13:02 08/05/16 13:17 DC 08/05/16 13:39 999 MLS/HR Sodium Chloride 1,000 ml @ 200 mls/hr Q5H STAT IV 08/05/16 13:21 08/05/16 15:22 DC 08/05/16 13:39 200 MLS/HR Promethazine HCl 12.5 mg/Sodium Chloride 50.5 ml @ 204 mls/hr Q6H PRN IV 08/05/16 14:45 09/04/16 14:44 08/06/16 13:14 204 MLS/HR ECG Indication: other (dizziness) Rate (beats per minute): 85 Rhythm: sinus rhythm Findings: 1st degree AV block, no acute ischemic change, no ectopy, other ( Previous inferior infarct) ED Course 1314: Past medical records reviewed. The patient was evaluated in room B3B. A complete history and physical examination was performed. 1302: Ordered Sodium Chloride 1000 ml @ 125 mls/hr IV, Sodium Chloride 250 ml @ 999 mls/hr IV. 1321: Ordered Sodium Chloride 1000 ml @ 200 mls/hr IV. 1410: Upon reevaluation, the patient is resting comfortably. I discussed laboratory and radiographic results with her. She verbalized agreement of the treatment plan. I spoke with Dr. Riojas of the [facility] [facility]. The patient will be evaluated for further management and care. Medical Decision Differential diagnosis: Etiologies such as hypercalcemia, benign positional vertigo, dehydration, hypovolemia, anemia, tumor, infection, hypoglycemia, electrolyte abnormalities, cardiac sources, intracerebral event, toxicologic, neurologic, as well as others were entertained. Medication Reconciliation: I attest that I have personally reviewed the patient' s current medication list. Blood Pressure Screening: Patient was found to have normal blood pressure on screening and does not require follow-up. This patient was evaluated and appeared to be in no significant distress. The patient does appear to be chronically ill but not acutely ill. She has been complaining of some dizziness. Patient has a known hypercalcemia and was sent to the ER. IV fluids were initiated. Patient's laboratory work reveals a calcium of 14.5, ionized calcium of 1.89. I did discuss the case with Dr. Riojas give the hospitalist service. He has asked that I hold on any further treatment until he evaluates the patient as she was recently admitted. Patient will be evaluated by Dr. Riojas for further management. Consults Time Called: 1402 Consulting Physician: Dr. Riojas -[facility] Returned Call: [phone] I reviewed the patient's case with Dr. Riojas. [facility] will evaluate the patient for further management. Impression Primary Impression: Hypercalcemia Scribe Attestation The scribe's documentation has been prepared under my direction and personally reviewed by me in its entirety. I confirm that the note above accurately reflects all work, treatment, procedures, and medical decision making performed by me. Departure Information Dispostion Being Evaluated By Hospitalist Patient Instructions [facility]
[2016-08-05 14:30] VITALS: O2SAT 96; BMI 33.2
[2016-08-05 14:36] VITALS: O2SAT 96
[2016-08-05] MEDS ORDERED: CALCITONIN SALMON 400 INTER.UNIT/2 ML SQ SCH (14:45)
[2016-08-05] MEDS ORDERED: ACETAMINOPHEN 325 MG TAB PO PRN (14:45)
[2016-08-05] MEDS ORDERED: MAGNESIUM HYDROXIDE SUSP 30 ML UDC PO PRN (14:45)
[2016-08-05] MEDS ORDERED: POLYETHYLENE (MIRALAX) 17 GM PACK PO PRN (14:45)
[2016-08-05] MEDS ORDERED: BISACODYL 5 MG TABEC PO PRN (14:45)
[2016-08-05] MEDS ORDERED: ALUMINUM/MAGNESIUM/SIMETH (MAALOX MAX) 30 ML UDC PO PRN (14:45)
[2016-08-05] MEDS ORDERED: ONDANSETRON 8 MG TAB PO PRN (14:45)
[2016-08-05] MEDS ORDERED: ONDANSETRON INJ 2 MG/ML 2 ML VIAL IV PRN (14:45)
--- NOTE | 2016-08-05 14:50 | History and Physical ---
History & Physical Date & Time of Service: Aug 05, 2016 at 14:43 Chief Complaint: Weak, Dizzy, Nausea, Referred By Dr Primary Care Physician: Willie Gutierrez D.O. History of Present Illness This patient returns to the ER after being discharged for approximately 1 week with recurrent hypercalcemia associated with malignancy, diarrhea last admission her hypercalcemia wasn't proven calcitonin, the patient usually has infusions of Zometa via the cancer center and Dr. Leland Dolan Patient feeling weak and dizzy at home, she's had very poor appetite and nausea when she thinks about food, but she has not been having any changes in her urinary habits and has been using MiraLAX to have a small stool every 2-3 days. She has no increased focal pain or discomfort just generally feels foggy or lethargic. Past Medical/Surgical History Medical Problems: (1) Breast cancer Status: Chronic (2) Hypercalcemia Status: Chronic Family History She believes some people in her family of high blood pressure and there may be a distant cousin with diabetes Social History Smoking Status: Never Smoker Marital Status: Allergies Coded Allergies: No Known Allergies (Unverified , 08/05/16) Home Medications Scheduled Anastrozole (Anastrozole), 1 TAB PO QAM Prochlorperazine Maleate (Compazine), 10 MG PO Q6H Scheduled PRN Bisacodyl (Dulcolax), 1 TAB PO UD PRN for Constipation Ondansetron Hcl (Zofran), 8 MG PO Q8 PRN for Nausea Polyethylene Glycol 3350 (Bulk (Polyethylene Glycol 3350), 17 GM PO DAILY PRN for Constipation Review of Systems ROS: well nourished well developed No double vision blurry vision No problems with speech or swallowing No palpitations, chest pain or pressure Wheezing or breathing issues No abdominal pain but she does have nausea vomiting when she tries to eat or think about food No diarrhea but she has had reduction in appetite or weight No burning urine urine frequency or changes in color No focal joint pain or muscle pain No skin rashes gross oral lesions No unusual bruising or bleeding No focused back pain or numbness or loss of strength No changes in memory but she does have mild confusion Physical Exam Vital Signs Date Time Temp Pulse Resp B/P (MAP) Pulse Ox O2 Delivery O2 Flow Rate FiO2 08/05/16 13:21 90 08/05/16 12:50 36.6 98 18 110/71 98 Room Air General Appearance: WD/WN, + mild distress Head: normocephalic, atraumatic, + pertinent finding (appears the patient's wearing a wig) Eyes: PERRL, EOMI Neck: supple, no JVD Respiratory/Chest: chest non-tender, lungs clear, normal breath sounds Cardiovascular: regular rate, rhythm, no murmur Abdomen/GI: normal bowel sounds, non tender, soft Extremities/Musculoskelatal: no pedal edema, normal range of motion Neurologic/Psych: alert, oriented x 3, + depressed affect Skin: normal color, warm/dry, no rash Diagnostics Laboratory Results Results Past 24 Hours Test 08/05/16 13:11 08/05/16 13:15 Range/Units White Blood Count 9.73 4.8-10.8 K/uL Red Blood Count 3.41 4.2-5.4 M/uL Hemoglobin 11.7 12.0-16.0 g/dL Hematocrit 32.8 37-47 % Mean Corpuscular Volume 96.2 80-100 fL Mean Corpuscular Hemoglobin 34.3 25-34 pg Mean Corpuscular Hemoglobin Concent 35.7 32-36 g/dl Platelet Count 82 130-400 K/uL Mean Platelet Volume 10.6 7.4-10.4 fL Neutrophils (%) (Auto) 74.5 % Lymphocytes (%) (Auto) 18.5 % Monocytes (%) (Auto) 6.5 % Eosinophils (%) (Auto) 0.1 % Basophils (%) (Auto) 0.1 % Neutrophils # (Auto) 7.25 1.4-6.5 K/uL Lymphocytes # (Auto) 1.80 1.2-3.4 K/uL Monocytes # (Auto) 0.63 0.11-0.59 K/uL Eosinophils # (Auto) 0.01 0-0.5 K/uL Basophils # (Auto) 0.01 0-0.2 K/uL RDW Standard Deviation 62.7 36.4-46.3 fL RDW Coefficient of Variation 17.9 11.5-14.5 % Immature Granulocyte % (Auto) 0.3 % Immature Granulocyte # (Auto) 0.03 0.00-0.02 K/uL Nucleated RBC Absolute Count (auto) 0.05 0-0 K/uL Nucleated Red Blood Cells % 0.5 % Hypersegmented Polys OCCASIONAL Sodium Level 130 136-145 mmol/L Potassium Level 3.2 3.5-5.1 mmol/L Chloride Level 95 98-107 mmol/L Carbon Dioxide Level 28 21-32 mmol/L Anion Gap 7.0 3-11 mmol/L Blood Urea Nitrogen 18 7-18 mg/dl Creatinine 0.98 0.60-1.20 mg/dl Estimated GFR () 67.7 Estimated GFR (Non- 58.4 BUN/Creatinine Ratio 18.2 10-20 Random Glucose 111 70-99 mg/dl Calcium Level 14.5 8.5-10.1 mg/dl Magnesium Level 2.5 1.8-2.4 mg/dl Total Bilirubin 1.3 0.2-1 mg/dl Direct Bilirubin 0.4 0-0.2 mg/dl Aspartate Amino Transf (AST/SGOT) 120 15-37 U/L Alanine Aminotransferase (ALT/SGPT) 95 12-78 U/L Alkaline Phosphatase 119 45-117 U/L Total Protein 7.7 6.4-8.2 gm/dl Albumin 3.7 3.4-5.0 gm/dl Thyroid Stimulating Hormone (TSH) 0.561 0.300-4.500 uIu/ml Ionized Calcium 1.89 1.12-1.32 mmol/l Impression Assessment and Plan 71-year-old female metastatic breast cancer here with symptomatic hypercalcemia from bony metastasis is Patient was aggressively hydrated with saline containing potassium and she is hypokalemic on presentation, we'll give her 1 dose of Lasix, we'll use calcitonin for international units subcutaneous twice a day and if this works really consider discharging her on Miacalcin nasal spray, we'll consult Dr. Fernandez for continued outpatient management of her hypercalcemia and metastatic breast cancer Patient continues with somatic complaints once the calcium is reduced may consider further expiration of her abdominal nausea we'll follow LFTs on 08/06 Lovenox for DVT prevention Resuscitation Status FULL RESUSCITATION VTE Prophylaxis VTE Risk Assessment Done? Y/N: Yes Risk Level: Moderate Given or contraindicated: Enoxaparin (Lovenox)SQ
[2016-08-05 15:21] VITALS: BP 120/76; PULSE 83; TEMP 36.7; O2SAT 100
[2016-08-05] MEDS ORDERED: FUROSEMIDE INJ 20 MG in SYRINGE 0 ML IV ONE (15:30)
[2016-08-05] MEDS: POTASSIUM CHLORIDE INJ 10 MEQ in SODIUM CHLORIDE 0.9% 1000ML 1,000 ML IV SCH ×2 (15:36→20:12)
[2016-08-05] MEDS: ENOXAPARIN 40 MG/0.4 ML SYR SQ SCH (15:52)
[2016-08-05] MEDS ORDERED: CALCITONIN SALMON SQ SCH (16:00)
[2016-08-05] MEDS ORDERED: IV FLUIDS COMPLETED PRN (16:15)
[2016-08-05 18:03] LABS: URINE APPEARANCE CLEAR (CLEAR); URINE BILIRUBIN NEG (NEG); URINE COLOR YELLOW; URINE NITRITE NEG (NEG); URINE PH 7.5 (4.5-7.5); URINE SPECIFIC GRAVITY 1.012 (1.000-1.030); UROBILINOGEN NEG (NEG); ZZUR CULT IF INDIC CLEAN CATCH NO
[2016-08-05 18:06] LABS: MANUAL MICROSCOPIC REQUIRED? NO; REVIEW REQ? NO
[2016-08-05] MEDS: PROCHLORPERAZINE MALEATE 10 MG TAB PO SCH (18:57)
[2016-08-05 20:19] VITALS: BP 113/73; PULSE 89; TEMP 36.6; O2SAT 95
[2016-08-06] VITALS (7 sets, daily range): BP systolic 100–118; BP diastolic 64–77; PULSE 77–94; TEMP 36.3–37; O2SAT 94–98; BMI 27.5
[2016-08-06] MEDS: POTASSIUM CHLORIDE INJ 10 MEQ in SODIUM CHLORIDE 0.9% 1000ML 1,000 ML IV SCH ×5 (01:14→22:01)
[2016-08-06] MEDS: PROCHLORPERAZINE MALEATE 10 MG TAB PO SCH ×4 (01:14→17:00)
[2016-08-06] MEDS ORDERED: CALCITONIN SALMON SQ SCH (06:00)
[2016-08-06 07:31] LABS: HEMATOCRIT 28.9 % (37-47); MEAN CORPUSCULAR HEMOGLOBIN 33.6 pg (25-34); MEAN CORPUSCULAR HGB CONC 34.6 g/dl (32-36); RED BLOOD COUNT 2.98 M/uL (4.2-5.4); WHITE BLOOD COUNT 9.81 K/uL (4.8-10.8)
[2016-08-06 07:36] LABS: MEAN PLATELET VOLUME 9.9 fL (7.4-10.4); PLATELET COUNT 78 K/uL (130-400)
[2016-08-06 08:07] LABS: BUN/CREATININE RATIO 21.1 (10-20); CALCIUM 11.5 mg/dl (8.5-10.1); CREATININE 0.56 mg/dl (0.60-1.20); POTASSIUM 2.8 mmol/L (3.5-5.1)
[2016-08-06 08:11] LABS: PLT ESTIMATE DECREASED
[2016-08-06] MEDS: ANASTROZOLE 1 MG TAB PO SCH (08:23)
[2016-08-06] MEDS: PROMETHAZINE HCL INJ 12.5 MG in SODIUM CHLORIDE 0.9% 50ML 50 ML IV PRN (13:14)
--- NOTE | 2016-08-06 13:18 | Progress Note ---
Subjective Date of Service: Aug 06, 2016. Subjective Pt evaluation today including: conversation w/ patient, conversation w/ family , physical exam, chart review, lab review, review of studies, conversation w/ leasing sales consultant, review of inpatient medication list Pt reports improvement in weakness, fatigue and with difficulty speaking No acute issues overnight Resting comfortably in bed Problem List Medical Problems: (1) Hypercalcemia Status: Chronic Review of Systems Constitutional: + weakness, + fatigue, No fever, No chills, No sweats, No weight loss ENT: No hearing loss, No unusual epistaxis, No nasal symptoms, No sore throat Respiratory: No cough, No sputum, No wheezing, No shortness of breath, No dyspnea on exertion Cardiac: No chest pain, No orthopnea, No PND, No edema, No claudication Abdomen: No pain, No nausea, No vomiting, No diarrhea, No constipation Musculoskeletal: No joint pain, No muscle pain, No swelling, No calf pain Female : No dysuria, No urinary frequency, No hematuria, No incontinence Neurologic: No memory loss, No paralysis, No weakness, No numbness/tingling Psychiatric: No depression symptoms, No anhedonism, No anxiety, No insomnia Skin: No rash, No itch, No new/changing skin lesions, No color change Objective Vital Signs Date Time Temp Pulse Resp B/P (MAP) Pulse Ox O2 Delivery O2 Flow Rate FiO2 08/06/16 11:18 36.4 79 16 111/73 (86) 98 Room Air 08/06/16 08:00 Room Air 08/06/16 07:41 36.6 77 16 100/64 (76) 96 Room Air 08/06/16 04:32 36.6 84 16 116/72 (87) 95 Room Air 08/06/16 00:30 36.7 87 18 118/71 (87) 94 Room Air 08/06/16 00:15 Room Air 08/05/16 20:19 36.6 89 16 113/73 (86) 95 Room Air 08/05/16 20:00 Room Air 08/05/16 16:00 Room Air 08/05/16 15:21 36.7 83 18 120/76 (91) 100 Room Air 08/05/16 14:36 83 13 96 08/05/16 14:31 127/71 08/05/16 14:30 96 Room Air 08/05/16 14:15 82 13 95 08/05/16 14:01 118/71 08/05/16 13:45 81 15 95 08/05/16 13:31 125/68 08/05/16 13:21 90 08/05/16 13:15 93 19 96 Physical Exam General Appearance: WD/WN, no apparent distress Eyes: normal inspection, PERRL, EOMI, sclerae normal Neck: supple, no adenopathy, thyroid normal, no JVD Respiratory/Chest: chest non-tender, lungs clear, normal breath sounds, no respiratory distress Cardiovascular: regular rate, rhythm, no edema, no gallop, no JVD, no murmur Abdomen: normal bowel sounds, non tender, soft, no organomegaly Neurologic/Psychiatric: no motor/sensory deficits, alert, normal mood/affect, oriented x 3 Skin: normal color, warm/dry, no rash Lymphatic: no adenopathy Laboratory Results Last 24 Hours Test 08/05/16 13:15 08/05/16 16:15 08/06/16 06:58 Ionized Calcium 1.89 mmol/l Urine Color YELLOW Urine Appearance CLEAR Urine pH 7.5 Urine Specific [place] 1.012 Urine Protein NEG Urine Glucose (UA) NEG Urine Ketones NEG Urine Occult Blood NEG Urine Nitrite NEG Urine Bilirubin NEG Urine Urobilinogen NEG Urine Leukocyte Esterase MODERATE Urine WBC (Auto) 5-10 /hpf Urine RBC (Auto) 0-4 /hpf Urine Hyaline Casts (Auto) 1-5 /lpf Urine Epithelial Cells (Auto) 5-10 /lpf Urine Bacteria (Auto) NEG White Blood Count 9.81 K/uL Red Blood Count 2.98 M/uL Hemoglobin 10.0 g/dL Hematocrit 28.9 % Mean Corpuscular Volume 97.0 fL Mean Corpuscular Hemoglobin 33.6 pg Mean Corpuscular Hemoglobin Concent 34.6 g/dl RDW Standard Deviation 64.2 fL RDW Coefficient of Variation 18.3 % Platelet Count 78 K/uL Mean Platelet Volume 9.9 fL Platelet Estimate DECREASED Sodium Level 139 mmol/L Potassium Level 2.8 mmol/L Chloride Level 105 mmol/L Carbon Dioxide Level 27 mmol/L Anion Gap 7.0 mmol/L Blood Urea Nitrogen 12 mg/dl Creatinine 0.56 mg/dl Est Creatinine Clear Calc Drug Dose 88.0 ml/min Estimated GFR () 109.5 Estimated GFR (Non- 94.5 BUN/Creatinine Ratio 21.1 Random Glucose 84 mg/dl Calcium Level 11.5 mg/dl Assessment and Plan 71-year-old female metastatic breast cancer here with symptomatic hypercalcemia from bony metastasis Hypercalcemia in setting of metastatic breast cancer with bony mets, improved with calcitonin and IV fluids. Ca 14.5-->11.5. Will transition to nasal calcitonin 1 spray per one nostril daily. Improvement in weakness and speech per patient. Cont arimidex and compazine Hypokalemia, 2.8 this AM, replace PRN Constipation cont dulcolax and miralax Lovenox for DVT prevention
--- NOTE | 2016-08-06 16:09 | Oncology Consultation ---
Oncology/Heme Consultation Date of Consultation: Aug 06, 2016. Attending Physician: José Miguel Heredia D.O. Reason for Consultation: Metastatic breast cancer Hypercalcemia History of Present Illness Ms. Hernandez is a 71 year old woman with a history of metastatic breast cancer with osseous metastases. Over the past few months, she has struggled with hypercalcemia. She was just admitted last week with symptoms, including nausea, weakness, fatigue, and confusion. During her last admission, she was found to have a low PTH and an elevated PTHrP, consistent with hypercalcemia of malignancy. She received a dose of pamidronate on 07/22/16 and she was given a prescription for prednisone 10 mg earlier this week. However, she presents again with fatigue, confusion, and nausea. Her bony pain is reasonably controlled. She is feeling better today with hydration and IV antiemetics. Past Medical/Surgical History Medical Problems: (1) Hypercalcemia Status: Chronic Social History Smoking Status: Never Smoker Marital Status: Housing Status: lives with family Allergies Coded Allergies: No Known Allergies (Unverified , 08/05/16) Home Medications Scheduled Anastrozole (Anastrozole), 1 TAB PO QAM Prochlorperazine Maleate (Compazine), 10 MG PO Q6H Scheduled PRN Bisacodyl (Dulcolax), 1 TAB PO UD PRN for Constipation Ondansetron Hcl (Zofran), 8 MG PO Q8 PRN for Nausea Polyethylene Glycol 3350 (Bulk (Polyethylene Glycol 3350), 17 GM PO DAILY PRN for Constipation Current Inpatient Medications Current Inpatient Medications Medications (Trade) Dose Ordered Sig/Danika Route Start Time Stop Time Status Last Admin Dose Admin Enoxaparin Sodium (Lovenox Inj) 40 mg Q24H SQ 08/05/16 16:00 09/04/16 15:59 08/05/16 15:52 40 MG Acetaminophen (Tylenol Tab) 650 mg Q4H PRN PO 08/05/16 14:45 09/04/16 14:44 Al Hydrox/Mg Hydrox/Simethicone (Maalox Max Susp) 15 ml Q4H PRN PO 08/05/16 14:45 09/04/16 14:44 Magnesium Hydroxide (Milk Of Magnesia Susp) 30 ml Q6H PRN PO 08/05/16 14:45 09/04/16 14:44 Ondansetron HCl (Zofran Inj) 4 mg Q6H PRN IV 08/05/16 14:45 09/04/16 14:44 Potassium Chloride 10 meq/ Sodium Chloride 1,005 ml @ 200 mls/hr Q5H2M IV 08/05/16 15:30 09/04/16 15:29 08/06/16 11:40 200 MLS/HR Anastrozole (Arimidex Tab) 1 mg QAM PO 08/06/16 08:00 09/05/16 08:59 08/06/16 08:23 1 MG Bisacodyl (Dulcolax Tab) 5 mg DAILY PRN PO 08/05/16 14:45 09/04/16 14:44 Ondansetron HCl (Zofran Tab) 8 mg Q8 PRN PO 08/05/16 14:45 09/04/16 14:44 Prochlorperazine Maleate (Compazine Tab) 10 mg Q6 PO 08/05/16 18:00 09/04/16 17:59 08/06/16 11:40 10 MG Polyethylene (Miralax Powder Packet) 17 gm DAILY PRN PO 08/05/16 14:45 09/04/16 14:44 Promethazine HCl 12.5 mg/Sodium Chloride 50.5 ml @ 204 mls/hr Q6H PRN IV 08/05/16 14:45 09/04/16 14:44 08/06/16 13:14 204 MLS/HR Miscellaneous (Iv Fluids Completed) 1 ea PRN PRN N/A 08/05/16 16:15 08/05/17 16:14 08/06/16 11:40 1 EA Potassium Chloride (Klor-Con Tab) 40 meq BID PO 08/06/16 20:00 09/05/16 19:59 Calcitonin [place] (Fortical Nasal [place]) 1 spray DAILY NA 08/07/16 08:00 09/06/16 07:59 Review of Systems Constitutional: + weakness, + fatigue, No fever, No chills Eyes: No worsening of vision Respiratory: No cough, No shortness of breath Cardiovascular: No chest pain Abdomen: + nausea, No pain, No vomiting Musculoskeletal: No swelling, No calf pain Neurologic: + weakness (generalized) Hematologic / Lymphatic: No abnormal bleeding/bruising, No night sweats Integumentary: No rash Physical Exam Date Time Temp Pulse Resp B/P (MAP) Pulse Ox O2 Delivery O2 Flow Rate FiO2 08/06/16 14:50 36.3 87 16 110/72 (85) 97 Room Air 08/06/16 11:18 36.4 79 16 111/73 (86) 98 Room Air 08/06/16 08:00 Room Air 08/06/16 07:41 36.6 77 16 100/64 (76) 96 Room Air 08/06/16 04:32 36.6 84 16 116/72 (87) 95 Room Air 08/06/16 00:30 36.7 87 18 118/71 (87) 94 Room Air 08/06/16 00:15 Room Air 08/05/16 20:19 36.6 89 16 113/73 (86) 95 Room Air 08/05/16 20:00 Room Air 08/05/16 16:00 Room Air General Appearance: WD/WN, no apparent distress Eyes: EOMI ENT: pharynx normal (mucous membranes moist) Respiratory/Chest: lungs clear, no respiratory distress Cardiovascular: regular rate, rhythm, no murmur Abdomen/GI: non tender, soft, no organomegaly Extremities/Musculoskelatal: no pedal edema, normal range of motion Neurologic/Psych: alert, normal mood/affect, oriented x 3 Skin: no rash Laboratory Results Last 24 Hours Test 08/05/16 16:15 08/06/16 06:58 Urine Color YELLOW Urine Appearance CLEAR Urine pH 7.5 Urine Specific [place] 1.012 Urine Protein NEG Urine Glucose (UA) NEG Urine Ketones NEG Urine Occult Blood NEG Urine Nitrite NEG Urine Bilirubin NEG Urine Urobilinogen NEG Urine Leukocyte Esterase MODERATE Urine WBC (Auto) 5-10 /hpf Urine RBC (Auto) 0-4 /hpf Urine Hyaline Casts (Auto) 1-5 /lpf Urine Epithelial Cells (Auto) 5-10 /lpf Urine Bacteria (Auto) NEG White Blood Count 9.81 K/uL Red Blood Count 2.98 M/uL Hemoglobin 10.0 g/dL Hematocrit 28.9 % Mean Corpuscular Volume 97.0 fL Mean Corpuscular Hemoglobin 33.6 pg Mean Corpuscular Hemoglobin Concent 34.6 g/dl RDW Standard Deviation 64.2 fL RDW Coefficient of Variation 18.3 % Platelet Count 78 K/uL Mean Platelet Volume 9.9 fL Platelet Estimate DECREASED Sodium Level 139 mmol/L Potassium Level 2.8 mmol/L Chloride Level 105 mmol/L Carbon Dioxide Level 27 mmol/L Anion Gap 7.0 mmol/L Blood Urea Nitrogen 12 mg/dl Creatinine 0.56 mg/dl Est Creatinine Clear Calc Drug Dose 88.0 ml/min Estimated GFR () 109.5 Estimated GFR (Non- 94.5 BUN/Creatinine Ratio 21.1 Random Glucose 84 mg/dl Calcium Level 11.5 mg/dl Assessment & Plan Ms. Hernandez has progressive metastatic hormone positive breast cancer with bony metastases. She was recently started on Xeloda, but her treatment was held due to significant fatigue and nausea. However, this proved to be related to hypercalcemia. She has now been admitted twice in two weeks for symptomatic hypercalcemia. 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 Her burden of bone tumors is also likely contributing, due to increased bone turnover. The ultimate management for this is treatment of her cancer. However, we need a strategy to control her calcium in the meantime, until we can get a response. We can consider using intranasal calcitonin, though this treatment is prone to tachyphylaxis and the benefit is often short-lived. Another option is to switch from bisphosphonates to an RANK-L binding antibody like Xgeva. Steroids are another consideration, but are usually more efficacious in lymphoid malignancies. Finally, I would consider nephrology and endocrinology consultation for suggestions of other options. We will arrange for her to restart Xeloda as soon as possible.
[2016-08-06] MEDS: ENOXAPARIN 40 MG/0.4 ML SYR SQ SCH (17:00)
[2016-08-06] MEDS: POTASSIUM CHLORIDE 20 MEQ TABCR PO SCH (20:18)
[2016-08-07] MEDS: POTASSIUM CHLORIDE INJ 10 MEQ in SODIUM CHLORIDE 0.9% 1000ML 1,000 ML IV SCH ×5 (02:22→21:51)
[2016-08-07 04:32] VITALS: BP 110/72; PULSE 80; TEMP 36.6; O2SAT 96
[2016-08-07] MEDS: PROCHLORPERAZINE MALEATE 10 MG TAB PO SCH ×4 (05:16→18:00)
[2016-08-07 06:31] VITALS: BMI 28.0
[2016-08-07 06:54] LABS: CREATININE 0.43 mg/dl (0.60-1.20); POTASSIUM 3.1 mmol/L (3.5-5.1)
[2016-08-07 07:48] VITALS: BP 124/77; PULSE 90; TEMP 36.8; O2SAT 95
[2016-08-07] MEDS: POTASSIUM CHLORIDE 20 MEQ TABCR PO SCH (08:49)
[2016-08-07] MEDS: CALCITONIN SALMON NA 200 IU/AC 3.7 ML BTL SCH (08:50)
[2016-08-07] MEDS: ANASTROZOLE 1 MG TAB PO SCH (08:50)
[2016-08-07] MEDS: PROMETHAZINE HCL INJ 12.5 MG in SODIUM CHLORIDE 0.9% 50ML 50 ML IV PRN (08:58)
--- NOTE | 2016-08-07 09:28 | Hematology/Oncology Prog Note ---
Hematology/Onc Progress Note Date of Service Aug 07, 2016. Diagnoses Metastatic breast cancer hypercalcemia Medications Medications Administered Medications (Trade) Dose Ordered Sig/Danika Route Start Time Stop Time Status Last Admin Dose Admin Sodium Chloride 250 ml @ 999 mls/hr Q16M STAT IV 08/05/16 13:02 08/05/16 13:17 DC 08/05/16 13:39 999 MLS/HR Sodium Chloride 1,000 ml @ 200 mls/hr Q5H STAT IV 08/05/16 13:21 08/05/16 15:22 DC 08/05/16 13:39 200 MLS/HR Enoxaparin Sodium (Lovenox Inj) 40 mg Q24H SQ 08/05/16 16:00 09/04/16 15:59 08/06/16 17:00 40 MG Potassium Chloride 10 meq/ Sodium Chloride 1,005 ml @ 200 mls/hr Q5H2M IV 08/05/16 15:30 09/04/16 15:29 08/07/16 08:01 200 MLS/HR Anastrozole (Arimidex Tab) 1 mg QAM PO 08/06/16 08:00 09/05/16 08:59 08/07/16 08:50 1 MG Prochlorperazine Maleate (Compazine Tab) 10 mg Q6 PO 08/05/16 18:00 09/04/16 17:59 08/06/16 17:00 10 MG Furosemide 20 mg/ Syringe 2 ml @ 4 mls/min TODAY@1530 ONCE IV 08/05/16 15:30 08/05/16 15:31 DC 08/05/16 15:52 4 MLS/MIN Promethazine HCl 12.5 mg/Sodium Chloride 50.5 ml @ 204 mls/hr Q6H PRN IV 08/05/16 14:45 09/04/16 14:44 08/07/16 08:58 204 MLS/HR Calcitonin [place] 340 inter.unit/ Syringe 1.7 ml @ 0 mls/sec Q12 SQ 08/05/16 16:00 08/05/16 18:43 DC 08/05/16 16:23 1.5 MLS/SEC Miscellaneous (Iv Fluids Completed) 1 ea PRN PRN N/A 08/05/16 16:15 08/05/17 16:14 08/06/16 11:40 1 EA Calcitonin [place] 340 inter.unit/ Syringe 1.7 ml @ 0 mls/sec Q12H SQ 08/06/16 06:00 08/06/16 10:58 DC 08/06/16 06:25 1 MLS/SEC Potassium Chloride (Klor-Con Tab) 40 meq BID PO 08/06/16 20:00 09/05/16 19:59 08/07/16 08:49 40 MEQ Calcitonin [place] (Fortical Nasal [place]) 1 spray DAILY NA 08/07/16 08:00 09/06/16 07:59 08/07/16 08:50 1 SPRAY Subjective Ms. Hernandez continues to improve. She is less confused today and feels stronger. She started the intranasal calcitonin this morning. She also has an appointment with Nephrology on Tuesday. Review of Systems: Constitutional: No fever, No fatigue Eyes: No worsening of vision Respiratory: No cough, No shortness of breath Cardiovascular: No chest pain Abdomen: No pain, No nausea, No vomiting Musculoskeletal: No joint pain Neurologic: No weakness, No numbness/tingling Heme: No abnormal bleeding/bruising Vital Signs Vital Signs Past 12 Hours Date Time Temp Pulse Resp B/P (MAP) Pulse Ox O2 Delivery O2 Flow Rate FiO2 08/07/16 07:48 36.8 90 18 124/77 (93) 95 Room Air 08/07/16 04:32 36.6 80 18 110/72 (85) 96 Room Air 08/07/16 00:40 Room Air 08/06/16 23:49 36.9 88 18 117/77 (90) 95 Room Air 08/06/16 22:26 Room Air Physical Exam Constitutional: General Apperance: heathly-appearing Level of Distress: NAD Psychiatric: Mental Status: active & alert Orientation: oriented except where noted Lungs: Auscuitation: CTA except as noted Cardiovascular: Heart Auscultation: RRR Abdomen: Inspection & Palpation: soft, no tenderness, guarding & rebound Extremities: no edema Laboratory Last 24 Hours Test 08/07/16 05:56 Sodium Level 143 mmol/L Potassium Level 3.1 mmol/L Chloride Level 112 mmol/L Carbon Dioxide Level 23 mmol/L Anion Gap 8.0 mmol/L Blood Urea Nitrogen 7 mg/dl Creatinine 0.43 mg/dl Est Creatinine Clear Calc Drug Dose 115.4 ml/min Estimated GFR () 119.4 Estimated GFR (Non- 103.1 BUN/Creatinine Ratio 16.0 Random Glucose 77 mg/dl Calcium Level 11.0 mg/dl Assessment & Plan Ms. Hernandez is improving. Her calcium remains elevated, but improved from admission. I think she might benefit from Xgeva, given that she has not responded well to bisphosphonates. We can do this as an outpatient next week. She has an appointment with nephrology on Tuesday and will be around this area , so we can plan for it then. In the meantime, she will continue with the calcitonin. We will also restart her Xeloda as an outpatient. My office will be in touch to make arrangements.
[2016-08-07 11:40] VITALS: BP 124/77; PULSE 88; TEMP 36.8; O2SAT 97
--- NOTE | 2016-08-07 12:53 | Progress Note ---
Subjective Date of Service: Aug 07, 2016. Subjective Pt evaluation today including: conversation w/ patient, physical exam, chart review, lab review, review of studies, conversation w/ it consultant Pt reports improvement in weakness and in more lucid speech at bedside No joint pain No other concerns Problem List Medical Problems: (1) Hypercalcemia Status: Chronic Review of Systems Constitutional: No fever, No chills, No sweats, No weight loss, No weakness Eyes: No worsening of vision, No eye pain, No redness, No discharge ENT: No hearing loss, No unusual epistaxis, No nasal symptoms, No sore throat Respiratory: No cough, No sputum, No wheezing, No shortness of breath Cardiac: No chest pain, No orthopnea, No PND, No edema Abdomen: No pain, No nausea, No vomiting, No diarrhea Musculoskeletal: No joint pain, No muscle pain Female : No dysuria, No urinary frequency, No hematuria Neurologic: No memory loss, No paralysis, No weakness, No numbness/tingling Psychiatric: No depression symptoms, No anhedonism, No anxiety, No insomnia Heme: No clotting problems Endo: No fatigue, No excessive thirst, No excessive urination Skin: No rash, No itch Objective Vital Signs Date Time Temp Pulse Resp B/P (MAP) Pulse Ox O2 Delivery O2 Flow Rate FiO2 08/07/16 11:40 36.8 88 20 124/77 (93) 97 Room Air 08/07/16 08:50 Room Air 08/07/16 07:48 36.8 90 18 124/77 (93) 95 Room Air 08/07/16 04:32 36.6 80 18 110/72 (85) 96 Room Air 08/07/16 00:40 Room Air 08/06/16 23:49 36.9 88 18 117/77 (90) 95 Room Air 08/06/16 22:26 Room Air 08/06/16 19:34 37.0 94 18 112/72 (85) 96 Room Air 08/06/16 17:00 Room Air 08/06/16 14:50 36.3 87 16 110/72 (85) 97 Room Air Physical Exam General Appearance: WD/WN, no apparent distress Eyes: normal inspection, PERRL, EOMI, sclerae normal Neck: supple, no adenopathy, thyroid normal, no JVD Respiratory/Chest: chest non-tender, lungs clear, normal breath sounds, no respiratory distress Cardiovascular: regular rate, rhythm, no edema, no gallop, no JVD Abdomen: normal bowel sounds, non tender, soft, no organomegaly Neurologic/Psychiatric: marble mechanic helper II-XII nml as tested, no motor/sensory deficits, alert, normal mood/affect Laboratory Results Last 24 Hours Test 08/07/16 05:56 Sodium Level 143 mmol/L Potassium Level 3.1 mmol/L Chloride Level 112 mmol/L Carbon Dioxide Level 23 mmol/L Anion Gap 8.0 mmol/L Blood Urea Nitrogen 7 mg/dl Creatinine 0.43 mg/dl Est Creatinine Clear Calc Drug Dose 115.4 ml/min Estimated GFR () 119.4 Estimated GFR (Non- 103.1 BUN/Creatinine Ratio 16.0 Random Glucose 77 mg/dl Calcium Level 11.0 mg/dl Assessment and Plan 71-year-old female metastatic breast cancer here with symptomatic hypercalcemia from bony metastasis Hypercalcemia in setting of metastatic breast cancer with bony mets, improved with calcitonin and IV fluids. Ca 14.5-->11.5-->11. Tolerating nasal calcitonin 1 spray per one nostril daily. Improvement in weakness and speech per patient. Cont arimidex and compazine. Oncology consulted, will do trial of Xgeva as outpatient. Cont physical therapy for physical deconditioning Hypokalemia, 3.1 this AM, replace PRN Constipation cont dulcolax and miralax Lovenox for DVT prevention
[2016-08-07] MEDS: POTASSIUM CHLR 10 MEQ / WTR 10 MEQ in PREMIXED WATER 100 ML IV SCH ×4 (13:33→17:33)
[2016-08-07 15:23] VITALS: BP 107/66; PULSE 93; TEMP 36.7; O2SAT 97
[2016-08-07] MEDS: ENOXAPARIN 40 MG/0.4 ML SYR SQ SCH (16:20)
[2016-08-07 20:26] VITALS: BP 110/73; PULSE 94; TEMP 37; O2SAT 95
[2016-08-08 00:28] VITALS: BP 116/76; PULSE 91; TEMP 36.8; O2SAT 96
[2016-08-08] MEDS: POTASSIUM CHLORIDE INJ 10 MEQ in SODIUM CHLORIDE 0.9% 1000ML 1,000 ML IV SCH ×2 (02:47→08:27)
[2016-08-08 03:38] VITALS: BP 113/75; PULSE 89; TEMP 36.7; O2SAT 94
[2016-08-08 05:36] LABS: HEMATOCRIT 30.7 % (37-47); MEAN CELL VOLUME 98.1 fL (80-100); MEAN CORPUSCULAR HEMOGLOBIN 32.6 pg (25-34); MEAN CORPUSCULAR HGB CONC 33.2 g/dl (32-36); RED BLOOD COUNT 3.13 M/uL (4.2-5.4); WHITE BLOOD COUNT 9.59 K/uL (4.8-10.8)
[2016-08-08 05:42] LABS: MEAN PLATELET VOLUME 9.7 fL (7.4-10.4); PLATELET COUNT 73 K/uL (130-400)
[2016-08-08] MEDS: PROCHLORPERAZINE MALEATE 10 MG TAB PO SCH ×2 (06:00)
[2016-08-08 06:01] LABS: BUN/CREATININE RATIO 13.5 (10-20); CREATININE 0.42 mg/dl (0.60-1.20); POTASSIUM 3.4 mmol/L (3.5-5.1)
[2016-08-08 06:34] VITALS: Ht 160 cm; Wt 71.3 kg
[2016-08-08 07:25] VITALS: BP 122/79; PULSE 92; TEMP 36.7; O2SAT 97
[2016-08-08] MEDS ORDERED: POTASSIUM CHLORIDE 10 MEQ TABCR PO STA (07:58)
[2016-08-08] MEDS: CALCITONIN SALMON NA 200 IU/AC 3.7 ML BTL SCH (08:24)
[2016-08-08] MEDS: ANASTROZOLE 1 MG TAB PO SCH (08:27)
[2016-08-08] MEDS ORDERED: MCLIN (10:00)
[2016-08-08] MEDS ORDERED: MCRK20 PO (10:00)
--- NOTE | 2016-08-08 10:08 | Discharge Instructions ---
Discharge Instructions Date of Service Aug 08, 2016. Admission Reason for Admission: Hypercalcemia Discharge Discharge Diagnosis / Problem: Hypercalcemia, weakness Discharge Goals Goal(s): Decrease discomfort, Improve function, Increase independence, Improve disease control, Learn about illness, Diagnostic testing, Therapeutic intervention, Prevent Disease Progression Activity Recommendations Activity Limitations: resume your previous activity Shower/Bathe: no limitations . Instructions / Follow-Up Instructions / Follow-Up Patient to be discharged home Weakness likely from high levels of calcium likely related to cancer Continue intranasal calcitonin once a day, please remember to alternate nostrils Please follow up with Dr Lees in 1-2 weeks Please follow up with automotive parts salesperson as scheduled Please follow up with Dr Gutierrez in 1-2 weeks Current Hospital Diet Patient's current hospital diet: Regular Diet Discharge Diet Recommended Diet: Regular Diet Pending Studies Studies pending at discharge: no Medical Emergencies . Who to Call and When: Medical Emergencies: If at any time you feel your situation is an emergency, please call 911 immediately. . Non-Emergent Contact Non-Emergency issues call your: Primary Care Provider Call Non-Emergent contact if: you have a fever, your pain is worsening . . "Provider Documentation" section prepared by José Miguel Heredia. . VTE Core Measure Inpt VTE Proph given/why not?: Enoxaparin (Lovenox)SQ
[2016-08-08 10:25] VITALS: BP 122/79; PULSE 92; TEMP 36.7; O2SAT 97
--- NOTE | 2016-08-08 12:19 | Discharge Summary ---
Discharge Summary Date of Service Aug 08, 2016. Discharge Summary Admission Date: Aug 05, 2016 at 15:12 Discharge Date: Aug 08, 2016 Discharge Disposition: Home Principal Diagnosis: Hypercalcemia Problems/Secondary Diagnoses: (1) Hypercalcemia Status: Chronic Consultations: Hematology/oncology Medication Reconciliation New Medications: Potassium Chloride (Klor-Con M20) 20 Meq Tabcr 20 MEQ PO DAILY, #30 TABS Calcitonin [place] (Calcitonin-[place]) 30 [place]/3.7 Ml Soln 1 SPRAY NA DAILY, #1 BTL Continued Medications: Anastrozole (Anastrozole) 1 Mg Tab 1 TAB PO QAM Bisacodyl (Dulcolax) 5 Mg Tab 1 TAB PO UD PRN for Constipation Ondansetron Hcl (Zofran) 8 Mg Tab 8 MG PO Q8 PRN for Nausea, TAB Polyethylene Glycol 3350 (Bulk (Polyethylene Glycol 3350) 1 Pow Pow 17 GM PO DAILY PRN for Constipation Prochlorperazine Maleate (Compazine) 10 Mg Tab 10 MG PO Q6H for Nausea, TAB Discharge Exam Review of Systems: Constitutional: No fever, No chills, No weakness, No fatigue ENT: No hearing loss, No unusual epistaxis, No nasal symptoms, No sore throat Respiratory: No cough, No sputum, No wheezing, No shortness of breath Cardiovascular: No chest pain, No orthopnea, No PND, No edema Abdomen: No pain, No nausea, No vomiting, No diarrhea Musculoskeletal: No joint pain, No muscle pain, No swelling, No calf pain Genitourinary - Male: No hematuria, No dysuria, No urinary frequency, No urinary urgency Neurologic: No memory loss, No paralysis, No weakness, No numbness/tingling Psychiatric: No depression symptoms, No anhedonism, No anxiety, No insomnia Endocrine: No fatigue, No excessive thirst, No excessive urination Integumentary: No rash, No itch Physical Exam: General Appearance: WD/WN, no apparent distress Eyes: normal inspection, PERRL, EOMI, sclerae normal Neck: supple, no adenopathy, thyroid normal, no JVD Respiratory/Chest: chest non-tender, lungs clear, normal breath sounds, no respiratory distress Cardiovascular: regular rate, rhythm, no edema, no gallop, no JVD Abdomen / GI: normal bowel sounds, non tender, soft, no organomegaly Neurologic/Psychiatric: no motor/sensory deficits, alert, normal mood/affect , normal reflexes Skin: normal color, warm/dry, no rash Lymphatic: no adenopathy Hospital Course 71-year-old female metastatic breast cancer here with symptomatic hypercalcemia from bony metastasis Hypercalcemia/weakness in setting of metastatic breast cancer with bony mets, improved with calcitonin and IV fluids. Ca 14.5-->11.5-->11-->12. Tolerating nasal calcitonin 1 spray per one nostril daily. Improvement in weakness and speech per patient. Cont arimidex and compazine. Oncology consulted, will do trial of Xgeva as outpatient. Will also f/u with nephrology for hypercalcemia management as well Hypokalemia, 3.4 this AM, replace PRN, and cont on KCL 20 [place] PO daily as outpatient Constipation cont dulcolax and miralax Lovenox for DVT prevention Total Time Spent: Greater than 30 minutes This includes examination of the patient, discharge planning, medication reconciliation, and communication with other providers. Discharge Instructions Please refer to the electronic Patient Visit Report (Discharge Instructions) for additional information. Additional Copies To Willie Gutierrez D.O.
== END 2016-08-08 11:14 | disposition home or self-care (01) ==
LOC: C.EDB 12:46 → ENRESERV 14:46 → C.4E 15:12
PROVIDERS: ADMIT Internal Medicine; ATTEND Hospitalist
DX: E83.52 Hypercalcemia (principal); E87.6 Hypokalemia; C50.919 Malignant neoplasm of unspecified site of unspecified female breast; C79.51 Secondary malignant neoplasm of bone; K59.00 Constipation, unspecified; Z79.899 Other long term (current) drug therapy

== ENCOUNTER 2016-08-13 11:51 | Observation (INO) | payer OTHER, MEDICARE ==
[~2016-08-13] VITALS: Ht 162.6 cm; Wt 67.2 kg
[~2016-08-13 11:51] MED LIST changes: +MCLIN; +MCRK20 PO
[2016-08-13] MEDS ORDERED: SODIUM CHLORIDE 0.9% 1000ML 1,000 ML IV STA (12:24)
[2016-08-13] MEDS ORDERED: SODIUM CHLORIDE 0.9% 1000ML 1,000 ML IV ONE (12:24)
--- NOTE | 2016-08-13 12:25 | EMERGENCY ROOM VISIT NOTE ---
History Report prepared by Page: Elizabeth Kan Under the Supervision of: Dr. Raza Gallego M.D. First contact with patient: 12:14 Chief Complaint: WEAKNESS Stated Complaint: WEAKNESS,SLEEPINESS,NO APPETITIE Nursing Triage Summary: Just discharged from hospital on Tuesday with hypercalcemia and hypocalemia. Patient is breast cancer patient with mets to bone. Patient states she is not having pain at this time. Family states the patient is sleeping all of the time. Family states patient is extremely weak. History of Present Illness The patient is a 71 year old female who presents to the Emergency Room with complaints of worsening weakness beginning 5 days prior to arrival. Per the patient's family, the patient has breast cancer with mets to bone. She has been experiencing hypercalcemia and hypokalemia for the past 2 months. The patient has been hospitalized many times and given fluids. The patient has been more fatigued and weak these past few days. She also is experiencing a cough. The patient's last chemotherapy round was in June. The plan is to begin another round of chemotherapy once the patient gets stronger. Recently the patient has lost about 30 pounds. She is currently on medication for nausea. The patient is currently not experiencing pain, vomiting, diarrhea or fevers. Source of History: patient, family Onset: 5 days BUSINESS MANAGEMENT CONSULTANT Position: other (global) Quality: other (weakness) Timing: worsening Associated Symptoms: + fatigue, No vomiting, No diarrhea Review of Systems See HPI for pertinent positives & negatives. A total of 10 systems reviewed and were otherwise negative. Past Medical & Surgical Medical Problems: (1) Breast cancer (2) Hypercalcemia Old medical records were reviewed. Nurse's notes were reviewed and I agree with. Family History FHx: cancer Hypertension Social History Smoking Status: Never Smoker Marital Status: Housing Status: lives with family Occupation Status: retired Current/Historical Medications Scheduled Anastrozole (Anastrozole), 1 TAB PO QAM Calcitonin [place] (Calcitonin-[place]), 1 SPRAY INH QAM Potassium Ext Rel (Klor-Con), 20 MEQ PO QAM Prednisone Tab (Prednisone), 10 MG PO QAM Prochlorperazine Maleate (Compazine), 10 MG PO Q6H Scheduled PRN Bisacodyl (Dulcolax), 1 TAB PO UD PRN for Constipation Ondansetron Hcl (Zofran), 8 MG PO Q8 PRN for Nausea Polyethylene Glycol 3350 (Bulk (Polyethylene Glycol 3350), 17 GM PO DAILY PRN for Constipation Miscellaneous Medications Denosumab (Xgeva), 120 MG Allergies Coded Allergies: No Known Allergies (Unverified , 08/13/16) Physical Exam Vital Signs Date Time Temp Pulse Resp B/P (MAP) Pulse Ox O2 Delivery O2 Flow Rate FiO2 08/13/16 14:24 80 16 117/65 95 Room Air 08/13/16 12:55 88 20 117/66 95 Room Air 08/13/16 12:54 89 08/13/16 12:51 95 Room Air 08/13/16 12:01 36.4 100 18 91/61 96 Room Air Physical Exam General: Chronically ill, older female, sleepy but arousable, answers questions appropriately. GCS of 15. HEENT: Normal cephalic atraumatic. Pupils are equal round and reactive to light. Sclerae anicteric. Extraocular movements are intact. Oropharynx is pink with moist mucous membranes. No swelling of the mouth lips or tongue. Neck: Supple with a midline trachea. No meningeal signs or stiffness, no JVD or bruits. No Stridor. Chest: Clear to auscultation bilaterally. No wheezes or rhonchi. No increased work of breathing. Heart: regular rate and rhythm. Abdomen: Soft nontender, nondistended without rebound guarding or rigidity. Extremities: No cyanosis clubbing or edema. No calf tenderness or assymetry Spine/Back. Non tender to palpation. No CVA tenderness Skin: Good turgor without rashes. Neurologic exam: Cranial nerves two through 12 are intact. Motor and sensation are intact and symmetrical throughout. Medical Decision & Procedures ER Provider Diagnostic Interpretation: X-ray results as stated below per interpretation by me and the radiologist: CHEST ONE VIEW PORTABLE CLINICAL HISTORY: CHEST PAIN dyspnea COMPARISON STUDY: No previous studies for comparison. FINDINGS: Minimal platelike atelectasis left base. Lungs otherwise are clear. Diaphragms are smooth. IMPRESSION: Minimal platelike atelectasis left base. Otherwise negative study. Electronically signed by: Froy Ridley M.D. 08/13/2016 1:09 PM Dictated Date/Time: 08/13/2016 1:08 PM Laboratory Results 08/13/16 13:10 Red Blood Count 2.96, Mean Corpuscular Volume 98.3, Mean Corpuscular Hemoglobin 35.5, Mean Corpuscular Hemoglobin Concent 36.1, Mean Platelet Volume 10.3, Neutrophils (%) (Auto) 72.8, Lymphocytes (%) (Auto) 17.2, Monocytes (%) (Auto) 9.0, Eosinophils (%) (Auto) 0.2, Basophils (%) (Auto) 0.2, Neutrophils # (Auto) 9.26, Lymphocytes # (Auto) 2.19, Monocytes # (Auto) 1.15, Eosinophils # (Auto) 0.02, Basophils # (Auto) 0.02 08/13/16 13:10 Test 08/13/16 13:10 08/13/16 13:12 08/13/16 13:13 08/13/16 14:45 White Blood Count 12.71 K/uL (4.8-10.8) Red Blood Count 2.96 M/uL (4.2-5.4) Hemoglobin 10.5 g/dL (12.0-16.0) Hematocrit 29.1 % (37-47) Mean Corpuscular Volume 98.3 fL (80-100) Mean Corpuscular Hemoglobin 35.5 pg (25-34) Mean Corpuscular Hemoglobin Concent 36.1 g/dl (32-36) Platelet Count 81 K/uL (130-400) Mean Platelet Volume 10.3 fL (7.4-10.4) Neutrophils (%) (Auto) 72.8 % Lymphocytes (%) (Auto) 17.2 % Monocytes (%) (Auto) 9.0 % Eosinophils (%) (Auto) 0.2 % Basophils (%) (Auto) 0.2 % Neutrophils # (Auto) 9.26 K/uL (1.4-6.5) Lymphocytes # (Auto) 2.19 K/uL (1.2-3.4) Monocytes # (Auto) 1.15 K/uL (0.11-0.59) Eosinophils # (Auto) 0.02 K/uL (0-0.5) Basophils # (Auto) 0.02 K/uL (0-0.2) RDW Standard Deviation 66.3 fL (36.4-46.3) RDW Coefficient of Variation 18.8 % (11.5-14.5) Immature Granulocyte % (Auto) 0.6 % Immature Granulocyte # (Auto) 0.07 K/uL (0.00-0.02) Nucleated RBC Absolute Count (auto) 0.37 K/uL (0-0) Nucleated Red Blood Cells % 2.9 % Polychromasia 1+ Anion Gap 7.0 mmol/L (3-11) Est Creatinine Clear Calc Drug Dose 66.2 ml/min Estimated GFR () 92.1 Estimated GFR (Non- 79.5 BUN/Creatinine Ratio 27.3 (10-20) Calcium Level 14.1 mg/dl (8.5-10.1) Magnesium Level 2.3 mg/dl (1.8-2.4) Total Bilirubin 2.4 mg/dl (0.2-1) Direct Bilirubin 1.0 mg/dl (0-0.2) Aspartate Amino Transf (AST/SGOT) 139 U/L (15-37) Alanine Aminotransferase (ALT/SGPT) 92 U/L (12-78) Alkaline Phosphatase 132 U/L (45-117) Total Protein 6.7 gm/dl (6.4-8.2) Albumin 3.2 gm/dl (3.4-5.0) Lipase 107 U/L (73-393) Bedside Lactic Acid Venous 1.15 mmol/L (0.90-1.70) Bedside Troponin I < 0.030 ng/ml (0-0.045) Urine Color YELLOW Urine Appearance CLEAR (CLEAR) Urine pH 7.5 (4.5-7.5) Urine Specific [place] 1.013 (1.000-1.030) Urine Protein NEG (NEG) Urine Glucose (UA) NEG (NEG) Urine Ketones NEG (NEG) Urine Occult Blood NEG (NEG) Urine Nitrite NEG (NEG) Urine Bilirubin NEG (NEG) Urine Urobilinogen NEG (NEG) Urine Leukocyte Esterase TRACE (NEG) Urine WBC (Auto) 1-5 /hpf (0-5) Urine RBC (Auto) 0-4 /hpf (0-4) Urine Hyaline Casts (Auto) 1-5 /lpf (0-5) Urine Epithelial Cells (Auto) 5-10 /lpf (0-5) Urine Bacteria (Auto) NEG (NEG) Laboratory studies as stated above per my review. Medications Administered Medications (Trade) Dose Ordered Sig/Danika Route Start Time Stop Time Status Last Admin Dose Admin Sodium Chloride 1,000 ml @ 999 mls/hr Q1H1M STAT IV 08/13/16 12:24 08/13/16 13:24 DC 08/13/16 12:24 999 MLS/HR Sodium Chloride 1,000 ml @ 150 mls/hr Q6H40M ONCE IV 08/13/16 12:24 08/13/16 17:12 DC 08/13/16 12:24 150 MLS/HR ECG Indication: weakness Rate (beats per minute): 88 Rhythm: normal sinus Findings: 1st degree AV block, other (nonspecific T wave flattening) Change: no significant change (from August 05, 2016) ED Course 1216: Past medical records reviewed. The patient was evaluated in room C7, and a complete history and physical examination were performed. 1224: Sodium Chloride 1,000 ml @ 150 mls/hr IV, Sodium Chloride 1,000 ml @ 999 mls/hr IV. 1346: I reevaluated the patient and she is sleeping currently. She has stable vitals and normal blood pressure. 1408: I spoke with Dr. Kyara VIZCAINO about the patient. He will evaluate the patient for further management. 1410: Upon reevaluation, the patient is hemodynamically stable. I discussed the results and treatment plan with the patient. She verbalized agreement of the treatment plan. The patient will be evaluated for further management. Medical Decision Differentials include, but are not limited to; dehydration, electrolyte or metabolic abnormalities, arrhythmia, cancer complication. Medication Reconciliation: I attest that I have personally reviewed the patient' s current medication list. Blood pressure Screening: Patient was found to have normal blood pressure on screening and does not require follow-up. This patient comes in as described above. She was placed in room C7. She is here for treatment and evaluation of weakness. She does have a history of breast cancer that has metastases to one of her ribs. She's had problems with hypercalcemia. She looks somewhat dry on exam. Family says they've been keeping up with the fluids but she her appetite has been diminished. She's had no fever fall or trauma. Her neurologic exam is otherwise nonfocal. IV access was established and she was hydrated with 1 L IV normal saline bolus and 200 mL an hour IV normal saline. Blood work was obtained EKG does not suggest acute coronary syndrome or significant arrhythmia. her calcium came back significantly elevated at above 14. I think this is causing most of her symptoms. Her LFTs are also moderately elevated although. She's had no significant abdominal tenderness. Blood cultures were obtained. Her lactic acid is not significantly elevated. At this point, I do not find a concomitant infection although that would still be admitted differential. I do think she needs to be admitted for IV hydration and further treatment of her hypercalcemia and cancer as well as further rule out other etiologies for her symptoms. I consulted Dr. Cooper, who saw the patient ER and will admit her for these measures. Consults Time Called: 140 Consulting Physician: Dr. Kyara VIZCAINO Returned Call: [phone] Kyara VIZCAINO about the patient. He will evaluate the patient for further management. Impression Primary Impression: Hypercalcemia Additional Impressions: Dehydration Breast cancer Scribe Attestation The scribe's documentation has been prepared under my direction and personally reviewed by me in its entirety. I confirm that the note above accurately reflects all work, treatment, procedures, and medical decision making performed by me. Departure Information Dispostion Being Evaluated By Hospitalist Willie Khan D.O. (PCP) Problem Qualifiers
[2016-08-13] MEDS ORDERED: PRED10TA PO (12:47)
[2016-08-13] MEDS ORDERED: DENOINJ (12:51)
[2016-08-13] MEDS ORDERED: MCLIN INH (12:55)
[2016-08-13] MEDS ORDERED: POTA20TA16 PO (12:55)
--- NOTE | 2016-08-13 13:10 | DIAGNOSTIC IMAGING REPORT ---
CHEST ONE VIEW PORTABLE CLINICAL HISTORY: CHEST PAIN dyspnea COMPARISON STUDY: No previous studies for comparison. FINDINGS: Minimal platelike atelectasis left base. Lungs otherwise are clear. Diaphragms are smooth. IMPRESSION: Minimal platelike atelectasis left base. Otherwise negative study. Electronically signed by: Froy Ridley M.D. 08/13/2016 1:09 PM Dictated Date/Time: 08/13/2016 1:08 PM
[2016-08-13 13:32] LABS: HEMATOCRIT 29.1 % (37-47); MEAN CELL VOLUME 98.3 fL (80-100); MEAN CORPUSCULAR HEMOGLOBIN 35.5 pg (25-34); MEAN CORPUSCULAR HGB CONC 36.1 g/dl (32-36); RED BLOOD COUNT 2.96 M/uL (4.2-5.4); WHITE BLOOD COUNT 12.71 K/uL (4.8-10.8)
[2016-08-13 13:39] LABS: MEAN PLATELET VOLUME 10.3 fL (7.4-10.4); PLATELET COUNT 81 K/uL (130-400)
[2016-08-13 13:58] LABS: BASO % 0.2 %; BASO ABS # 0.02 K/uL (0-0.2); COMPLETE YES; EOS % 0.2 %; IG% 0.6 %; LYMPH % 17.2 %; LYMPH ABS # 2.19 K/uL (1.2-3.4); NEUT % 72.8 %; POLYCHROMASIA 1+
[2016-08-13 14:00] LABS: BUN/CREATININE RATIO 27.3 (10-20); CALCIUM 14.1 mg/dl (8.5-10.1); CREATININE 0.76 mg/dl (0.60-1.20); MAGNESIUM 2.3 mg/dl (1.8-2.4); POTASSIUM 3.5 mmol/L (3.5-5.1)
[2016-08-13] MEDS ORDERED: ZOLPIDEM TARTRATE 5 MG TAB PO PRN (15:15)
[2016-08-13] MEDS ORDERED: BISACODYL 5 MG TABEC PO PRN (15:15)
[2016-08-13] MEDS ORDERED: POLYETHYLENE (MIRALAX) 17 GM PACK PO PRN (15:15)
[2016-08-13] MEDS ORDERED: ACETAMINOPHEN 325 MG TAB PO PRN ×2 (15:15)
[2016-08-13] MEDS ORDERED: PAMIDRONATE DISODIUM IV INJ 60 MG in SODIUM CHLORIDE 0.9% 1000ML 1,000 ML IV ONE (15:30)
[2016-08-13] MEDS ORDERED: ONDANSETRON INJ 2 MG/ML 2 ML VIAL IV PRN (15:30)
[2016-08-13] MEDS ORDERED: IV FLUIDS COMPLETED PRN (16:00)
[2016-08-13 16:50] VITALS: BP 115/72; PULSE 88; TEMP 36.5; O2SAT 95
[2016-08-13] MEDS ORDERED: PAMIDRONATE DISODIUM IV INJ 60 MG in SODIUM CHLORIDE 0.9% 1000ML 1,000 ML IV SCH (17:30)
[2016-08-13] MEDS: NSS + 20MEQ KCL 1000ML 1,000 ML IV SCH (17:41)
[2016-08-13 17:49] LABS: URINE APPEARANCE CLEAR (CLEAR); URINE BILIRUBIN NEG (NEG); URINE COLOR YELLOW; URINE NITRITE NEG (NEG); URINE PH 7.5 (4.5-7.5); URINE SPECIFIC GRAVITY 1.013 (1.000-1.030); UROBILINOGEN NEG (NEG)
[2016-08-13 17:51] LABS: MANUAL MICROSCOPIC REQUIRED? NO; REVIEW REQ? NO
[2016-08-13] MEDS: BOOST BREEZE NUTRITION DRINK 1 BOX PO SCH (18:04)
--- NOTE | 2016-08-13 19:02 | History and Physical ---
History & Physical Date & Time of Service: Aug 13, 2016 at 18:49 Chief Complaint: Breast Cancer, Hypercalcemia Primary Care Physician: Willie Gutierrez D.O. History of Present Illness Source: patient, family, spouse The patient is a 71-year-old female most recently admitted to [facility] from August 05 to August 08 for hypercalcemia, returns to the emergency department with complaint of worsening weakness that began shortly after discharge from the previous admission approximately 5 days prior to arrival. The patient has a known history of metastatic breast cancer to bone. She is at times listless, very fatigued and weak, and appears mentally drained and with lack of focus, all of which have been associated with elevated calcium for her. Her last chemotherapy treatment was in June, with further treatments anticipated when she gets stronger. She has lost 30 pounds recently. She denies any issues with pain, and has no overt signs of illness such as fevers or chills. She has not had any recent travels or sick exposures. Past Medical/Surgical History Medical Problems: (1) Breast cancer Status: Chronic (2) Hypercalcemia Status: Chronic Family History FHx: cancer Hypertension Noncontributory Social History Smoking Status: Never Smoker Smokeless Tobacco Use: No Alcohol Use: none Drug Use: none Marital Status: Housing status: lives with family Occupational Status: retired Multi-Drug Resistant Organisms History of MDRO: No Allergies Coded Allergies: No Known Allergies (Unverified , 08/13/16) Home Medications Scheduled Anastrozole (Anastrozole), 1 TAB PO QAM Calcitonin [place] (Calcitonin-[place]), 1 SPRAY INH QAM Potassium Ext Rel (Klor-Con), 20 MEQ PO QAM Prednisone Tab (Prednisone), 10 MG PO QAM Prochlorperazine Maleate (Compazine), 10 MG PO Q6H Scheduled PRN Bisacodyl (Dulcolax), 1 TAB PO UD PRN for Constipation Ondansetron Hcl (Zofran), 8 MG PO Q8 PRN for Nausea Polyethylene Glycol 3350 (Bulk (Polyethylene Glycol 3350), 17 GM PO DAILY PRN for Constipation Miscellaneous Medications Denosumab (Xgeva), 120 MG Review of Systems The patient denies chest pain, palpitations, shortness of breath, lower extremity swelling, vision change, hearing change, sore throat, fevers, chills, sweats, nausea, vomiting, abdominal pain, pelvic pain, blood in urine or stool , dysuria, urinary frequency or urgency, lightheadedness, dizziness, headache, rash, abnormal bruising or bleeding, focal weakness, numbness or tingling in arms or legs, arthralgias or myalgias, back or neck pain, night sweats, or allergy symptoms. The review of systems is otherwise negative other than for that already noted above, and at least 10 systems have been reviewed. Physical Exam Vital Signs Date Time Temp Pulse Resp B/P (MAP) Pulse Ox O2 Delivery O2 Flow Rate FiO2 08/13/16 16:50 36.5 88 18 115/72 (86) 95 Room Air 08/13/16 16:15 83 18 108/59 95 Room Air 08/13/16 14:24 80 16 117/65 95 Room Air 08/13/16 12:55 88 20 117/66 95 Room Air 08/13/16 12:54 89 08/13/16 12:51 95 Room Air 08/13/16 12:01 36.4 100 18 91/61 96 Room Air The patient is awake, alert and oriented 3, appears very lethargic, with a lack of focus that appears almost like daydreaming, normocephalic and atraumatic , lying in bed and in no acute distress. HEENT--PERRL, EOMI, mucous membranes and oropharynx dry. Neck--supple, no JVD or bruits, thyroid normal, trachea midline, no adenopathy. Heart--normal S1 and S2, no extra beats, no murmurs, rubs or gallops. Lungs--clear bilaterally with good air movement, no respiratory distress, no accessory muscle use. Abdomen--normal bowel sounds and soft, nontender and nondistended, no hernias or masses, no organomegaly. Extremities--no cyanosis, clubbing or edema. There are good distal pulses b/l. Dermatologic--normal skin turgor, normal color, warm and dry, no abnormal lymph nodes, no rash. Neurologic--cranial nerves II through XII grossly intact, motor and sensory examination normal. Rheumatologic--normal range of motion, nontender, muscles and joints. Psychiatric--flat affect. Diagnostics Laboratory Results Results Past 24 Hours Test 08/13/16 13:10 08/13/16 13:12 08/13/16 13:13 08/13/16 14:45 Range/Units White Blood Count 12.71 4.8-10.8 K/uL Red Blood Count 2.96 4.2-5.4 M/uL Hemoglobin 10.5 12.0-16.0 g/dL Hematocrit 29.1 37-47 % Mean Corpuscular Volume 98.3 80-100 fL Mean Corpuscular Hemoglobin 35.5 25-34 pg Mean Corpuscular Hemoglobin Concent 36.1 32-36 g/dl Platelet Count 81 130-400 K/uL Mean Platelet Volume 10.3 7.4-10.4 fL Neutrophils (%) (Auto) 72.8 % Lymphocytes (%) (Auto) 17.2 % Monocytes (%) (Auto) 9.0 % Eosinophils (%) (Auto) 0.2 % Basophils (%) (Auto) 0.2 % Neutrophils # (Auto) 9.26 1.4-6.5 K/uL Lymphocytes # (Auto) 2.19 1.2-3.4 K/uL Monocytes # (Auto) 1.15 0.11-0.59 K/uL Eosinophils # (Auto) 0.02 0-0.5 K/uL Basophils # (Auto) 0.02 0-0.2 K/uL RDW Standard Deviation 66.3 36.4-46.3 fL RDW Coefficient of Variation 18.8 11.5-14.5 % Immature Granulocyte % (Auto) 0.6 % Immature Granulocyte # (Auto) 0.07 0.00-0.02 K/uL Nucleated RBC Absolute Count (auto) 0.37 0-0 K/uL Nucleated Red Blood Cells % 2.9 % Polychromasia 1+ Sodium Level 131 136-145 mmol/L Potassium Level 3.5 3.5-5.1 mmol/L Chloride Level 96 98-107 mmol/L Carbon Dioxide Level 28 21-32 mmol/L Anion Gap 7.0 3-11 mmol/L Blood Urea Nitrogen 21 7-18 mg/dl Creatinine 0.76 0.60-1.20 mg/dl Est Creatinine Clear Calc Drug Dose 66.2 ml/min Estimated GFR () 92.1 Estimated GFR (Non- 79.5 BUN/Creatinine Ratio 27.3 10-20 Random Glucose 107 70-99 mg/dl Calcium Level 14.1 8.5-10.1 mg/dl Magnesium Level 2.3 1.8-2.4 mg/dl Total Bilirubin 2.4 0.2-1 mg/dl Direct Bilirubin 1.0 0-0.2 mg/dl Aspartate Amino Transf (AST/SGOT) 139 15-37 U/L Alanine Aminotransferase (ALT/SGPT) 92 12-78 U/L Alkaline Phosphatase 132 45-117 U/L Total Protein 6.7 6.4-8.2 gm/dl Albumin 3.2 3.4-5.0 gm/dl Lipase 107 73-393 U/L Bedside Lactic Acid Venous 1.15 0.90-1.70 mmol/L Bedside Troponin I < 0.030 0-0.045 ng/ml Urine Color YELLOW Urine Appearance CLEAR CLEAR Urine pH 7.5 4.5-7.5 Urine Specific [place] 1.013 1.000-1.030 Urine Protein NEG NEG Urine Glucose (UA) NEG NEG Urine Ketones NEG NEG Urine Occult Blood NEG NEG Urine Nitrite NEG NEG Urine Bilirubin NEG NEG Urine Urobilinogen NEG NEG Urine Leukocyte Esterase TRACE NEG Urine WBC (Auto) 1-5 0-5 /hpf Urine RBC (Auto) 0-4 0-4 /hpf Urine Hyaline Casts (Auto) 1-5 0-5 /lpf Urine Epithelial Cells (Auto) 5-10 0-5 /lpf Urine Bacteria (Auto) NEG NEG Microbiology Results 08/13/16 Blood Culture, Received Pending 08/13/16 Blood Culture, Received Pending 08/13/16 Urine Culture, Received Pending Diagnostic Radiology Patient Name: LUIZ CALLAWAY Unit Number: [id number] Dictated: 08/13/161307 Transcribed: 08/13/16 1308 MS Printed Date/Time: [~ rep prt dt]/[~ rep prt tm] [~ rep ct labl] - [~ rep ct ivnm] [facility] [place] [address] Dictated: 08/13/161307 Transcribed: 08/13/16 1308 MS Printed Date/Time: [~ rep prt dt]/[~ rep prt tm] [~ rep ct labl] - [~ rep ct ivnm] [~ rep ct add3]] CHEST ONE VIEW PORTABLE CLINICAL HISTORY: CHEST PAIN dyspnea COMPARISON STUDY: No previous studies for comparison. FINDINGS: Minimal platelike atelectasis left base. Lungs otherwise are clear. Diaphragms are smooth. IMPRESSION: Minimal platelike atelectasis left base. Otherwise negative study. Electronically signed by: Froy Ridley M.D. 08/13/2016 1:09 PM Dictated Date/Time: 08/13/2016 1:08 PM The status of this report is Signed. Draft = Not yet reviewed or approved by Radiologist. Signed = Reviewed and approved by Radiologist. <AttendingPhy></AttendingPhy> <FamilyPhy>Willie Gutierrez D.O.</FamilyPhy> < PrimaryPhy>Willie Gutierrez D.O.</PrimaryPhy> <UnitNumber>[id number]</UnitNumber> <VisitNumber>[id number]</VisitNumber> <PatientName>CESIALUIZ L</PatientName > <DateOfBirth>1945</DateOfBirth> <Location>[facility]</Location> <ServiceDate> 08/13/16</ServiceDate> <MNE>ESINDI</MNE> <OrderingPhy>Raza Gallego M.D.</ OrderingPhy> <OrderingPhyMNE>f rep ord dr parrish</OrderingPhyMNE> <DictatingPhyMNE> f rep dict dr parrish</DictatingPhyMNE> <CCListMNE>f rep ct shivani</CCListMNE> < AdmittingPhyMNE>f pt admit dr parrish</AdmittingPhyMNE> <AttendingPhyMNE>f pt attend dr parrish</AttendingPhyMNE> <ConsultingPhyMNE>f pt consult dr parrish</ConsultingPhyMNE> <FamilyPhyMNE>f pt fam dr parrish</FamilyPhyMNE> <OtherPhyMNE>f pt other dr parrish</OtherPhyMNE> < PrimaryPhyMNE>f pt prim care dr parrish</PrimaryPhyMNE> <ReferringPhyMNE>f pt referring dr parrish</ReferringPhyMNE> EKG EKG shows normal sinus rhythm at 88 bpm, first-degree heart block, no acute ST- T changes. Impression Assessment and Plan Symptomatic hypercalcemia--with patient was admitted from August 05 to August 08, her calcium was initially 14.5 with total low of 11, and that increased 12 the time of discharge. Her calcium is 14.1 on this admission. Will give pamidronate 60 mg IV now, and if her calcium to start increase again prior to discharge, would recommend a second dosing of pamidronate at that time. She may need to be discharged on Fosamax or the equivalent orally. The ultimate treatment for her hypercalcemia will be to treat the underlying process which is causing injury to bone, her breast cancer. For now we will continue calcitonin-salmon one spray in each nostril alternating daily. Metastatic breast cancer--continue anastrozole every morning. Chronic prednisone use for 10 mg every morning. A significant part of her fatigue may be associated with adrenal insufficiency. We'll place her on hydrocortisone 100 mg IV every 8 hours. Level of Care Telemetry Advanced Directives Existing Advance Directive: No Existing Living Will: No Existing Power of Product Distribution Specialist: No Resuscitation Status FULL RESUSCITATION VTE Prophylaxis VTE Risk Assessment Done? Y/N: Yes Risk Level: Moderate Given or contraindicated: SCD's
[2016-08-13 19:43] VITALS: BP 115/72; PULSE 88; TEMP 36.5; O2SAT 95; BMI 26.5
[2016-08-13] MEDS: FAMOTIDINE IV INJ 20 MG in DEXTROSE 5% 100ML 100 ML IV SCH (21:10)
[2016-08-14 00:02] VITALS: BP 100/63; PULSE 80; TEMP 36.7; O2SAT 93
[2016-08-14] MEDS: NSS + 20MEQ KCL 1000ML 1,000 ML IV SCH ×2 (02:50→14:05)
[2016-08-14 04:01] VITALS: BP 102/68; PULSE 82; TEMP 36.6; O2SAT 94
[2016-08-14 06:26] VITALS: BMI 26.9
[2016-08-14 08:22] LABS: HEMATOCRIT 28.5 % (37-47); MEAN CORPUSCULAR HEMOGLOBIN 33.7 pg (25-34); MEAN CORPUSCULAR HGB CONC 33.7 g/dl (32-36); RED BLOOD COUNT 2.85 M/uL (4.2-5.4); WHITE BLOOD COUNT 11.56 K/uL (4.8-10.8)
[2016-08-14 08:30] LABS: MEAN PLATELET VOLUME 10.4 fL (7.4-10.4); PLATELET COUNT 65 K/uL (130-400)
[2016-08-14] MEDS: BOOST BREEZE NUTRITION DRINK 1 BOX PO SCH ×4 (08:38→20:41)
[2016-08-14] MEDS: CALCITONIN SALMON NA 200 IU/AC 3.7 ML BTL NAE SCH (08:38)
[2016-08-14] MEDS: ANASTROZOLE 1 MG TAB PO SCH (08:46)
[2016-08-14] MEDS: FAMOTIDINE IV INJ 20 MG in DEXTROSE 5% 100ML 100 ML IV SCH ×2 (08:46→20:41)
[2016-08-14 08:48] LABS: ANISOCYTOSIS PRESENT; BASO % 0.1 %; BASO ABS # 0.01 K/uL (0-0.2); COMPLETE YES; EOS % 0.3 %; IG% 0.5 %; LYMPH ABS # 2.43 K/uL (1.2-3.4); MONO % 8.7 %; NEUT % 69.4 %; POIKILOCYTOSIS PRESENT; POLYCHROMASIA 1+; SPHEROCYTE 1+
[2016-08-14 09:12] LABS: BUN/CREATININE RATIO 22.5 (10-20); CALCIUM 11.2 mg/dl (8.5-10.1); CREATININE 0.56 mg/dl (0.60-1.20); POTASSIUM 3.1 mmol/L (3.5-5.1)
[2016-08-14] MEDS ORDERED: NSS + 20MEQ KCL 1000ML 1,000 ML IV SCH (11:00)
[2016-08-14 11:31] VITALS: BP 108/69; PULSE 86; TEMP 36.5; O2SAT 98
--- NOTE | 2016-08-14 15:05 | Progress Note ---
Subjective Date of Service: Aug 14, 2016. Subjective Pt evaluation today including: conversation w/ patient, conversation w/ family , chart review Pt is feeling somewhat improved. She feels she has more strength that [employer]. She feels her voice is stronger also. She is still not at her usual. This is pt's 3rd episode of hyperCa. She did tolerate PO. Pt denies fever, SOB, chest pain, abd pain, n/v/c/d, LE pain or swelling. Problem List Medical Problems: (1) Breast cancer Status: Chronic (2) Dehydration Status: Acute (3) Hypercalcemia Status: Chronic Review of Systems All Other Systems: Reviewed and Negative Objective Vital Signs Date Time Temp Pulse Resp B/P (MAP) Pulse Ox O2 Delivery O2 Flow Rate FiO2 08/14/16 11:31 36.5 86 20 108/69 (82) 98 Room Air 08/14/16 08:20 Room Air 08/14/16 04:01 36.6 82 18 102/68 (79) 94 Room Air 08/14/16 00:30 Room Air 08/14/16 00:02 36.7 80 20 100/63 (75) 93 Room Air 08/13/16 19:43 36.5 88 18 115/72 95 Room Air 08/13/16 16:50 36.5 88 18 115/72 (86) 95 Room Air 08/13/16 16:15 83 18 108/59 95 Room Air Physical Exam General Appearance: WD/WN, no apparent distress Eyes: normal inspection, EOMI ENT: hearing grossly normal Neck: supple Respiratory/Chest: normal breath sounds, no respiratory distress Cardiovascular: regular rate, rhythm, no edema Abdomen: non tender, soft Extremities: non-tender, no pedal edema Neurologic/Psychiatric: alert, normal mood/affect, oriented x 3 Skin: normal color, warm/dry Laboratory Results Last 24 Hours Test 08/14/16 08:00 White Blood Count 11.56 K/uL Red Blood Count 2.85 M/uL Hemoglobin 9.6 g/dL Hematocrit 28.5 % Mean Corpuscular Volume 100.0 fL Mean Corpuscular Hemoglobin 33.7 pg Mean Corpuscular Hemoglobin Concent 33.7 g/dl Platelet Count 65 K/uL Mean Platelet Volume 10.4 fL Neutrophils (%) (Auto) 69.4 % Lymphocytes (%) (Auto) 21.0 % Monocytes (%) (Auto) 8.7 % Eosinophils (%) (Auto) 0.3 % Basophils (%) (Auto) 0.1 % Neutrophils # (Auto) 8.02 K/uL Lymphocytes # (Auto) 2.43 K/uL Monocytes # (Auto) 1.00 K/uL Eosinophils # (Auto) 0.04 K/uL Basophils # (Auto) 0.01 K/uL RDW Standard Deviation 69.8 fL RDW Coefficient of Variation 19.4 % Immature Granulocyte % (Auto) 0.5 % Immature Granulocyte # (Auto) 0.06 K/uL Nucleated RBC Absolute Count (auto) 0.20 K/uL Nucleated Red Blood Cells % 1.8 % Polychromasia 1+ Poikilocytosis PRESENT Anisocytosis PRESENT Spherocytes 1+ Sodium Level 140 mmol/L Potassium Level 3.1 mmol/L Chloride Level 108 mmol/L Carbon Dioxide Level 24 mmol/L Anion Gap 8.0 mmol/L Blood Urea Nitrogen 13 mg/dl Creatinine 0.56 mg/dl Est Creatinine Clear Calc Drug Dose 90.4 ml/min Estimated GFR () 109.5 Estimated GFR (Non- 94.5 BUN/Creatinine Ratio 22.5 Random Glucose 80 mg/dl Calcium Level 11.2 mg/dl Magnesium Level 2.0 mg/dl Total Bilirubin 2.2 mg/dl Direct Bilirubin 1.1 mg/dl Aspartate Amino Transf (AST/SGOT) 132 U/L Alanine Aminotransferase (ALT/SGPT) 80 U/L Alkaline Phosphatase 114 U/L Total Protein 6.0 gm/dl Albumin 2.9 gm/dl Assessment and Plan Symptomatic hypercalcemia-hx of similar sx with same dx prior Improving on IVF and calcitonin-salmon spray, pamidronate x1 Continue IVF given ongoing elevation Sx are improving but still not at baseline PTH low on last admission, hyperCa likely the result of her bone mets This will likely need monitored closely on d/c to prevent further issues and may need some sort of bisphosphonate or ongoing use of calcitonin-salmon spray Anemia: likely dilutional, monitor HypoK: replace and monitor Metastatic breast cancer--continue anastrozole every morning. Chronic prednisone use for 10 mg every morning. A significant part of her fatigue may be associated with adrenal insufficiency. hydrocortisone 100 mg IV every 8 hours.
[2016-08-14 15:41] VITALS: BP 107/69; PULSE 87; TEMP 36.3; O2SAT 98
[2016-08-14 20:33] VITALS: BP 116/68; PULSE 92; TEMP 36.5; O2SAT 97
[2016-08-14] MEDS: POTASSIUM CITRATE 10 MEQ TAB PO SCH (20:40)
[2016-08-15] MEDS: NSS + 20MEQ KCL 1000ML 1,000 ML IV SCH ×2 (02:28→14:29)
[2016-08-15 04:06] VITALS: BP 103/67; PULSE 85; TEMP 36.9; O2SAT 95
[2016-08-15] MEDS: BOOST BREEZE NUTRITION DRINK 1 BOX PO SCH ×4 (05:43→20:56)
[2016-08-15 06:17] VITALS: BMI 26.0
[2016-08-15 06:24] LABS: HEMATOCRIT 28.8 % (37-47); MEAN CELL VOLUME 100.3 fL (80-100); MEAN CORPUSCULAR HEMOGLOBIN 34.1 pg (25-34); RED BLOOD COUNT 2.87 M/uL (4.2-5.4); WHITE BLOOD COUNT 11.02 K/uL (4.8-10.8)
[2016-08-15 06:25] LABS: MEAN PLATELET VOLUME 10.4 fL (7.4-10.4); PLATELET COUNT 52 K/uL (130-400)
[2016-08-15 06:59] LABS: CALCIUM 10.4 mg/dl (8.5-10.1); CREATININE 0.49 mg/dl (0.60-1.20); MAGNESIUM 1.8 mg/dl (1.8-2.4)
[2016-08-15 07:27] LABS: ANISOCYTOSIS PRESENT; BASO % 0.2 %; BASO ABS # 0.02 K/uL (0-0.2); COMPLETE YES; EOS % 0.4 %; IG% 0.3 %; LYMPH % 23.1 %; LYMPH ABS # 2.55 K/uL (1.2-3.4); MONO % 8.7 %; NEUT % 67.3 %; POIKILOCYTOSIS PRESENT; SPHEROCYTE 1+
[2016-08-15 07:46] VITALS: BP 104/70; PULSE 85; TEMP 36.4; O2SAT 96
[2016-08-15] MEDS: POTASSIUM CITRATE 10 MEQ TAB PO SCH ×2 (08:20→20:56)
[2016-08-15] MEDS: CALCITONIN SALMON NA 200 IU/AC 3.7 ML BTL NAE SCH (08:21)
[2016-08-15] MEDS: ANASTROZOLE 1 MG TAB PO SCH (08:24)
[2016-08-15] MEDS ORDERED: POTASSIUM CHLR 20 MEQ / WTR 20 MEQ in PREMIXED WATER 100 ML IV STA (08:25)
[2016-08-15] MEDS: POTASSIUM CHLR 10MEQ / WTR IV SCH ×2 (09:12→10:12)
[2016-08-15] MEDS: FAMOTIDINE IV INJ 20 MG in DEXTROSE 5% 100ML 100 ML IV SCH ×2 (09:12→20:56)
[2016-08-15 12:30] VITALS: BP 112/67; PULSE 84; TEMP 36.3; O2SAT 98
--- NOTE | 2016-08-15 13:41 | Progress Note ---
Subjective Date of Service: Aug 15, 2016. Subjective Pt evaluation today including: conversation w/ patient, conversation w/ family Pt feeling improvement again today, but still not at her baseline in terms of ongoing weakness and decreased voice strength. Tolerating PO. states she ate more today than the last few days. Pt denies fever, SOB, chest pain, abd pain, n/v/c/d, LE pain or swelling. Problem List Medical Problems: (1) Breast cancer Status: Chronic (2) Dehydration Status: Acute (3) Hypercalcemia Status: Chronic Review of Systems All Other Systems: Reviewed and Negative Objective Vital Signs Date Time Temp Pulse Resp B/P (MAP) Pulse Ox O2 Delivery O2 Flow Rate FiO2 08/15/16 12:30 36.3 84 18 112/67 (82) 98 Room Air 08/15/16 08:00 Room Air 08/15/16 07:46 36.4 85 18 104/70 (81) 96 Room Air 08/15/16 04:06 36.9 85 18 103/67 (79) 95 Room Air 08/15/16 00:07 Room Air 08/14/16 20:33 36.5 92 20 116/68 (84) 97 Room Air 08/14/16 16:00 Room Air 08/14/16 15:41 36.3 87 18 107/69 (82) 98 Room Air Physical Exam Comments: General Appearance: WD/WN, no apparent distress Eyes: normal inspection, EOMI ENT: hearing grossly normal, voice is stronger Neck: supple Respiratory/Chest: normal breath sounds, no respiratory distress Cardiovascular: regular rate, rhythm, no edema Abdomen: non tender, soft Extremities: non-tender, no pedal edema Neurologic/Psychiatric: alert, normal mood/affect, oriented x 3, more interactive today Skin: normal color, warm/dry Laboratory Results Last 24 Hours Test 08/15/16 05:15 White Blood Count 11.02 K/uL Red Blood Count 2.87 M/uL Hemoglobin 9.8 g/dL Hematocrit 28.8 % Mean Corpuscular Volume 100.3 fL Mean Corpuscular Hemoglobin 34.1 pg Mean Corpuscular Hemoglobin Concent 34.0 g/dl Platelet Count 52 K/uL Mean Platelet Volume 10.4 fL Neutrophils (%) (Auto) 67.3 % Lymphocytes (%) (Auto) 23.1 % Monocytes (%) (Auto) 8.7 % Eosinophils (%) (Auto) 0.4 % Basophils (%) (Auto) 0.2 % Neutrophils # (Auto) 7.42 K/uL Lymphocytes # (Auto) 2.55 K/uL Monocytes # (Auto) 0.96 K/uL Eosinophils # (Auto) 0.04 K/uL Basophils # (Auto) 0.02 K/uL RDW Standard Deviation 71.3 fL RDW Coefficient of Variation 19.5 % Immature Granulocyte % (Auto) 0.3 % Immature Granulocyte # (Auto) 0.03 K/uL Nucleated RBC Absolute Count (auto) 0.11 K/uL Nucleated Red Blood Cells % 1.0 % Poikilocytosis PRESENT Anisocytosis PRESENT Spherocytes 1+ Sodium Level 138 mmol/L Potassium Level 3.0 mmol/L Chloride Level 107 mmol/L Carbon Dioxide Level 22 mmol/L Anion Gap 9.0 mmol/L Blood Urea Nitrogen 9 mg/dl Creatinine 0.49 mg/dl Est Creatinine Clear Calc Drug Dose 101.7 ml/min Estimated GFR () 114.4 Estimated GFR (Non- 98.7 BUN/Creatinine Ratio 18.0 Random Glucose 73 mg/dl Calcium Level 10.4 mg/dl Magnesium Level 1.8 mg/dl Total Bilirubin 2.1 mg/dl Direct Bilirubin 0.9 mg/dl Aspartate Amino Transf (AST/SGOT) 140 U/L Alanine Aminotransferase (ALT/SGPT) 89 U/L Alkaline Phosphatase 114 U/L Total Protein 6.0 gm/dl Albumin 2.8 gm/dl Assessment and Plan Symptomatic hypercalcemia-hx of similar sx with same dx prior Improving on IVF and calcitonin-salmon spray, pamidronate x1 Continue IVF given still slightly elevated Sx are improving but still not at baseline PTH low on last admission, hyperCa likely the result of her bone mets This will likely need monitored closely on d/c to prevent further recurrence and ongoing use of calcitonin-salmon spray vs bisphosphonate Anemia: likely dilutional, monitor HypoK: replace and monitor Metastatic breast cancer--continue anastrozole every morning. Chronic prednisone use: 10 mg every morning. A significant part of her fatigue may be associated with adrenal insufficiency. Resume dosing
[2016-08-15 16:23] VITALS: BP 95/60; PULSE 93; TEMP 36.9; O2SAT 97
[2016-08-15 19:27] VITALS: BP 100/69; PULSE 90; TEMP 37; O2SAT 94
[2016-08-16] VITALS (8 sets, daily range): BP systolic 97–110; BP diastolic 63–74; PULSE 81–117; TEMP 36.5–36.8; O2SAT 96–98; BMI 26.3
[2016-08-16] MEDS: NSS + 20MEQ KCL 1000ML 1,000 ML IV SCH (03:08)
[2016-08-16] MEDS: BOOST BREEZE NUTRITION DRINK 1 BOX PO SCH ×4 (06:30→20:46)
[2016-08-16 06:33] LABS: HEMATOCRIT 28.4 % (37-47); MEAN CELL VOLUME 100.4 fL (80-100); MEAN CORPUSCULAR HEMOGLOBIN 34.6 pg (25-34); MEAN CORPUSCULAR HGB CONC 34.5 g/dl (32-36); RED BLOOD COUNT 2.83 M/uL (4.2-5.4); WHITE BLOOD COUNT 11.95 K/uL (4.8-10.8)
[2016-08-16 06:34] LABS: PLATELET COUNT 50 K/uL (130-400)
[2016-08-16 07:09] LABS: BUN/CREATININE RATIO 16.7 (10-20); CALCIUM 10.2 mg/dl (8.5-10.1); CREATININE 0.45 mg/dl (0.60-1.20); MAGNESIUM 1.8 mg/dl (1.8-2.4); POTASSIUM 3.5 mmol/L (3.5-5.1)
[2016-08-16 07:13] LABS: BASO % 0.1 %; BASO ABS # 0.01 K/uL (0-0.2); COMPLETE YES; EOS % 0.4 %; IG% 0.4 %; LYMPH % 23.1 %; LYMPH ABS # 2.76 K/uL (1.2-3.4); MONO % 7.5 %; NEUT % 68.5 %
[2016-08-16] MEDS: POTASSIUM CITRATE 10 MEQ TAB PO SCH ×2 (08:00→20:46)
[2016-08-16] MEDS: CALCITONIN SALMON NA 200 IU/AC 3.7 ML BTL NAE SCH (08:01)
[2016-08-16] MEDS: ANASTROZOLE 1 MG TAB PO SCH (08:12)
[2016-08-16] MEDS: FAMOTIDINE IV INJ 20 MG in DEXTROSE 5% 100ML 100 ML IV SCH ×2 (08:17→20:56)
[2016-08-16 10:24] LABS: ANISOCYTOSIS PRESENT; POLYCHROMASIA 1+
--- NOTE | 2016-08-16 10:37 | Oncology Consultation ---
Oncology/Heme Consultation Date of Consultation: Aug 16, 2016. Attending Physician: Mihai Riojas M.D. Reason for Consultation: Metastatic breast carcinoma Refractory hypercalcemia History of Present Illness Ms. Hernandez is a 71-year-old female with history of metastatic breast carcinoma since 2013. Patient in the past has been treated with Abraxane, Taxol and currently is on aromatase inhibitors. More recently she has been given Xeloda but has been hospitalized now almost every other week for refractory hypercalcemia. Her performance status has markedly decreased apparently over the past few months. Likewise she has grwon more cytopenic. Admitted once again with fatigue and worsening performance status. She denies fever. She denies headache. She admits to decreased appetite. She denies significant constipation. She is alert and oriented. Her is at the bedside. Metastatic breast carcinoma was originally found from a supraclavicular node biopsy her skin biopsy years ago again as well as a bone marrow biopsy according to the notes. It is unclear as to when she might have taken her last course is perhaps it was in May of the status with the patient can recall.. She denies significant new bone pain. Past Medical/Surgical History Medical Problems: (1) Breast cancer Status: Chronic (2) Dehydration Status: Acute (3) Hypercalcemia Status: Chronic Family History FHx: cancer Hypertension Social History Smoking Status: Never Smoker Smokeless Tobacco Use: No Alcohol Use: none Drug Use: none Marital Status: Housing Status: lives with family Occupation Status: retired Allergies Coded Allergies: No Known Allergies (Unverified , 08/13/16) Home Medications Scheduled Anastrozole (Anastrozole), 1 TAB PO QAM Calcitonin [place] (Calcitonin-[place]), 1 SPRAY INH QAM Potassium Ext Rel (Klor-Con), 20 MEQ PO QAM Prednisone Tab (Prednisone), 10 MG PO QAM Prochlorperazine Maleate (Compazine), 10 MG PO Q6H Scheduled PRN Bisacodyl (Dulcolax), 1 TAB PO UD PRN for Constipation Ondansetron Hcl (Zofran), 8 MG PO Q8 PRN for Nausea Polyethylene Glycol 3350 (Bulk (Polyethylene Glycol 3350), 17 GM PO DAILY PRN for Constipation Miscellaneous Medications Denosumab (Xgeva), 120 MG Current Inpatient Medications Current Inpatient Medications Medications (Trade) Dose Ordered Sig/Danika Route Start Time Stop Time Status Last Admin Dose Admin Acetaminophen (Tylenol Tab) 650 mg Q4H PRN PO 08/13/16 15:15 09/12/16 15:14 Zolpidem Tartrate (Ambien Tab) 5 mg HSZ PRN PO 08/13/16 15:15 09/12/16 15:14 Anastrozole (Arimidex Tab) 1 mg QAM PO 08/14/16 08:00 09/13/16 08:59 08/16/16 08:12 1 MG Bisacodyl (Dulcolax Tab) 5 mg DAILY PRN PO 08/13/16 15:15 09/12/16 15:14 Calcitonin [place] (Fortical Nasal [place]) 1 spray QAM LIVIA 08/14/16 08:00 09/13/16 08:59 08/16/16 08:01 1 SPRAY Polyethylene (Miralax Powder Packet) 17 gm DAILY PRN PO 08/13/16 15:15 09/12/16 15:14 Ondansetron HCl (Zofran Inj) 4 mg Q6H PRN IV 08/13/16 15:30 09/12/16 15:29 Potassium Chloride/Sodium Chloride 1,000 ml @ 80 mls/hr [id number] IV 08/13/16 17:30 09/12/16 17:29 08/16/16 03:08 80 MLS/HR Famotidine 20 mg/ Dextrose 102 ml @ 200 mls/hr Q12 IV 08/13/16 21:00 09/12/16 20:59 08/16/16 08:17 200 MLS/HR Miscellaneous (Iv Fluids Completed) 1 ea PRN PRN N/A 08/13/16 16:00 08/13/17 15:59 Potassium Citrate (Urocit-K Tab) 20 meq BID PO 08/14/16 20:00 09/13/16 19:59 08/16/16 08:00 20 MEQ Enteral Nutritional Formula (Boost Breeze Nutritional Drink) 0.5 box ACHS PO 08/14/16 16:30 09/13/16 16:29 08/14/16 16:38 0.5 BOX Prednisone (PredniSONE TAB) 10 mg QAM PO 08/16/16 08:00 09/15/16 07:59 08/16/16 08:01 10 MG Review of Systems Constitutional: Negative for night sweats, or fever. Positive for increased fatigue Eyes: Negative for event change of vision ENT: Negative for epistaxis, nasal discharge, sore throat, or deafness Cardiovascular: Negative for chest pain, palpitations, dizziness, diaphoresis Respiratory: Negative for new shortness of breath,hemoptysis, or purulent cough Gastrointestinal: Negative for diarrhea, hematemesis, melena, nausea, vomiting , or dyspepsia Integumentary (skin): Negative for rash or jaundice discoloration Genitourinary: Negative for urinary frequency, hematuria, or dysuria Neurological: Negative for focal weakness, seizure activity, headache, or dizziness Lymphatic/Hematologic: Negative for petechiae, bleeding or new adenopathy Musculoskeletal: Negative for new joint or back pain Allergic/Immunologic: Negative for unusual rash or pruritis. Physical Exam Date Time Temp Pulse Resp B/P (MAP) Pulse Ox O2 Delivery O2 Flow Rate FiO2 08/16/16 07:40 36.5 85 16 97/63 (74) 96 Room Air 08/16/16 04:11 36.8 81 18 100/65 (77) 97 Room Air 08/16/16 00:00 Room Air 08/15/16 19:27 37.0 90 18 100/69 (79) 94 Room Air 08/15/16 16:23 36.9 93 18 95/60 (72) 97 Room Air 08/15/16 16:00 Room Air 08/15/16 12:30 36.3 84 18 112/67 (82) 98 Room Air Constitutional: vitals are stable. Alopecic Eyes: Eyes are AGUSTINA EOMI without conjuctival erythema or icterus. ENT: External examination was negative for masses. She does appear to have very mild lingual thrush. Neck: Negative for masses or palpable thyromegaly Respiratory: Lung sounds were generally clear bilaterally Cardiovascular: Heart was RRR without significant murmur, gallops aoe rubs Gastrointestinal: No palpable hepatic or splenomegaly. The abdomen was soft with normal bowel sounds. Lymphatic system: there was no palpable peripheral lymphadenopathy left supraclavicular area is mildly indurated Musculoskeletal System: The musculoskeletal system seemed concordant with age. Skin: The skin was negative for jaundice. Neurologic exam: The exam was negative for any focal findings. Deep tendon reflexes were equal and symmetrical. Psychiatric exam: Was essentially negative with normal mood and effect. Breast exam: Not done Extremities: Negative for significant edema Laboratory Results Last 24 Hours Test 08/16/16 05:55 White Blood Count 11.95 K/uL Red Blood Count 2.83 M/uL Hemoglobin 9.8 g/dL Hematocrit 28.4 % Mean Corpuscular Volume 100.4 fL Mean Corpuscular Hemoglobin 34.6 pg Mean Corpuscular Hemoglobin Concent 34.5 g/dl Platelet Count 50 K/uL Mean Platelet Volume 11.0 fL Neutrophils (%) (Auto) 68.5 % Lymphocytes (%) (Auto) 23.1 % Monocytes (%) (Auto) 7.5 % Eosinophils (%) (Auto) 0.4 % Basophils (%) (Auto) 0.1 % Neutrophils # (Auto) 8.18 K/uL Lymphocytes # (Auto) 2.76 K/uL Monocytes # (Auto) 0.90 K/uL Eosinophils # (Auto) 0.05 K/uL Basophils # (Auto) 0.01 K/uL RDW Standard Deviation 71.2 fL RDW Coefficient of Variation 19.5 % Immature Granulocyte % (Auto) 0.4 % Immature Granulocyte # (Auto) 0.05 K/uL Nucleated RBC Absolute Count (auto) 0.07 K/uL Nucleated Red Blood Cells % 0.6 % Polychromasia 1+ Anisocytosis PRESENT Pappenheimer Bodies 1+ Sodium Level 138 mmol/L Potassium Level 3.5 mmol/L Chloride Level 108 mmol/L Carbon Dioxide Level 21 mmol/L Anion Gap 9.0 mmol/L Blood Urea Nitrogen 8 mg/dl Creatinine 0.45 mg/dl Est Creatinine Clear Calc Drug Dose 111.3 ml/min Estimated GFR () 117.7 Estimated GFR (Non- 101.5 BUN/Creatinine Ratio 16.7 Random Glucose 81 mg/dl Calcium Level 10.2 mg/dl Magnesium Level 1.8 mg/dl Total Bilirubin 2.2 mg/dl Direct Bilirubin 0.9 mg/dl Aspartate Amino Transf (AST/SGOT) 145 U/L Alanine Aminotransferase (ALT/SGPT) 98 U/L Alkaline Phosphatase 116 U/L Total Protein 6.0 gm/dl Albumin 2.8 gm/dl Assessment & Plan Metastatic breast carcinoma with refractory hypercalcemia and has resulted in multiple admissions over the past 4-6 weeks in spite of maximal systemic attempts to control her calcium. Known bone and bone marrow metastasis. Her calcium kim been reasonable over the past 48 hours. Plans were to try Xgeva in our clinic to see if that does not provide more stable calcium control. With ask for an ultrasound of the abdomen because of the elevated liver enzymes. The peripheral smear interestingly enough looks rather banal. As far as therapy for breast cancer - will review this with Dr. Dolan who knows her the best over the years. She is cytopenic and subsequently therapeutic efforts may be limited to a continued course of the drug like Xeloda however the patient states she does have some trouble swallowing pills or something else such as weekly Navelbine (not as prone to producing cytopenia's). The unfortunate reality is that her disease has progressed and there may be very little that we will be able to do to control her metastasis. Her performance status such now that the risks associated with therapy may outweigh any benefit she may ever have. I did review this unfortunate circumstance with her and her today. Would also suggest treatment of what appears to be mild lingual thrush with Mycelex troches.
[2016-08-16 12:39] LABS: ALB/GLOB RATIO 0.9 (0.9-2); BUN/CREATININE RATIO 13.6 (10-20); CALCIUM 10.3 mg/dl (8.5-10.1); CREATININE 0.56 mg/dl (0.60-1.20); POTASSIUM 3.9 mmol/L (3.5-5.1)
[2016-08-16] MEDS: NYSTATIN SUSP 500,000 U/5 ML UDC PO SCH ×3 (14:02→20:48)
--- NOTE | 2016-08-16 16:02 | Progress Note ---
Subjective Date of Service: Aug 16, 2016. Subjective this pt is feeling better, has less fatigue, still having some constipation, does have some cough with drinking and oral thrush, frequent urination but is on IVF, does have urine culture that suggests contaminant, but does have one or two blood cultures that are gram positive, maybe contaminant Problem List Medical Problems: (1) Breast cancer Status: Chronic (2) Dehydration Status: Acute (3) Hypercalcemia Status: Chronic Review of Systems Constitutional: + weakness, + fatigue, No fever, No chills Respiratory: No cough, No shortness of breath, No dyspnea on exertion Cardiac: No chest pain, No orthopnea, No PND Abdomen: + constipation, No pain, No nausea, No vomiting, No diarrhea Neurologic: No memory loss, No paralysis Psychiatric: + depression symptoms, No anhedonism Objective Vital Signs Date Time Temp Pulse Resp B/P (MAP) Pulse Ox O2 Delivery O2 Flow Rate FiO2 08/16/16 07:40 36.5 85 16 97/63 (74) 96 Room Air 08/16/16 04:11 36.8 81 18 100/65 (77) 97 Room Air 08/16/16 00:00 Room Air 08/15/16 19:27 37.0 90 18 100/69 (79) 94 Room Air 08/15/16 16:23 36.9 93 18 95/60 (72) 97 Room Air 08/15/16 16:00 Room Air 08/15/16 12:30 36.3 84 18 112/67 (82) 98 Room Air Physical Exam General Appearance: WD/WN, + mild distress Eyes: PERRL, EOMI Neck: supple, no JVD Cardiovascular: regular rate, rhythm, no murmur Abdomen: normal bowel sounds, non tender, soft Extremities: no pedal edema, no calf tenderness Neurologic/Psychiatric: alert, oriented x 3 Laboratory Results Last 24 Hours Test 08/16/16 05:55 White Blood Count 11.95 K/uL Red Blood Count 2.83 M/uL Hemoglobin 9.8 g/dL Hematocrit 28.4 % Mean Corpuscular Volume 100.4 fL Mean Corpuscular Hemoglobin 34.6 pg Mean Corpuscular Hemoglobin Concent 34.5 g/dl Platelet Count 50 K/uL Mean Platelet Volume 11.0 fL Neutrophils (%) (Auto) 68.5 % Lymphocytes (%) (Auto) 23.1 % Monocytes (%) (Auto) 7.5 % Eosinophils (%) (Auto) 0.4 % Basophils (%) (Auto) 0.1 % Neutrophils # (Auto) 8.18 K/uL Lymphocytes # (Auto) 2.76 K/uL Monocytes # (Auto) 0.90 K/uL Eosinophils # (Auto) 0.05 K/uL Basophils # (Auto) 0.01 K/uL RDW Standard Deviation 71.2 fL RDW Coefficient of Variation 19.5 % Immature Granulocyte % (Auto) 0.4 % Immature Granulocyte # (Auto) 0.05 K/uL Nucleated RBC Absolute Count (auto) 0.07 K/uL Nucleated Red Blood Cells % 0.6 % Sodium Level 138 mmol/L Potassium Level 3.5 mmol/L Chloride Level 108 mmol/L Carbon Dioxide Level 21 mmol/L Anion Gap 9.0 mmol/L Blood Urea Nitrogen 8 mg/dl Creatinine 0.45 mg/dl Est Creatinine Clear Calc Drug Dose 111.3 ml/min Estimated GFR () 117.7 Estimated GFR (Non- 101.5 BUN/Creatinine Ratio 16.7 Random Glucose 81 mg/dl Calcium Level 10.2 mg/dl Magnesium Level 1.8 mg/dl Total Bilirubin 2.2 mg/dl Direct Bilirubin 0.9 mg/dl Aspartate Amino Transf (AST/SGOT) 145 U/L Alanine Aminotransferase (ALT/SGPT) 98 U/L Alkaline Phosphatase 116 U/L Total Protein 6.0 gm/dl Albumin 2.8 gm/dl Assessment and Plan 71 F with symptomatic hypercalcemia associated with malignancy. Given pamidronate in the ER continue to treat hypercalcemia, use miacalcin, and may need another dose of pamidronate prior to discharge, given abnormal lft will follow abdominal us ordered by oncology and will stop IV hydration and check calcium in am, given low albumin, calcium likely corrects higher than 10.3 oral thrush started nystatin, pt prefers over lydia
--- NOTE | 2016-08-16 17:28 | DIAGNOSTIC IMAGING REPORT ---
ABDOMEN COMPLETE (US) CLINICAL HISTORY: Metastatic breast caner with elevated liver enzymes. COMPARISON STUDY: CT scan dated 06/09/2016 FINDINGS: The pancreas appears sonographically normal. The liver is heterogeneous in echotexture with multiple hypoechoic foci the largest of which measures 9 mm. Metastatic disease must be considered. There is trace perihepatic fluid. There is a sludge-filled gallbladder. There is no significant gallbladder wall thickening. The spleen is enlarged measuring 2.4 cm. The right kidney measures 10.6 cm. There is an 11 mm mid pole cyst. There is mild dilatation of the collecting system. The left kidney measures 10.8 cm. There is an equivocal mid pole mass. There is mild dilatation of the collecting system. No abnormalities of the aorta or IVC are visualized. There is no ductal dilatation. The common bile duct measures 4 mm. IMPRESSION: 1. Heterogeneous hepatic echotexture with multiple subcentimeter hypoechoic hepatic foci. Metastatic disease must be considered. 2. Suboptimal visualization the left kidney with an equivocal mid pole mass 3. Mild dilatation of both renal collecting systems 4. Trace perihepatic fluid 5. Sludge-filled gallbladder 6. CT scanning should be considered in follow-up. Electronically signed by: Vinny Hoyt M.D. 08/16/2016 5:27 PM Dictated Date/Time: 08/16/2016 5:20 PM
[2016-08-17 04:05] VITALS: BP 110/73; PULSE 94; TEMP 36.7; O2SAT 97
[2016-08-17 06:31] VITALS: BMI 25.6
[2016-08-17 06:34] LABS: ALB/GLOB RATIO 0.9 (0.9-2); BUN/CREATININE RATIO 14.7 (10-20); CALCIUM 10.1 mg/dl (8.5-10.1); CREATININE 0.64 mg/dl (0.60-1.20); POTASSIUM 3.2 mmol/L (3.5-5.1)
--- NOTE | 2016-08-17 07:22 | Discharge Instructions ---
Discharge Instructions Date of Service Aug 18, 2016. Admission Reason for Admission: Breast Cancer, Hypercalcemia Discharge Discharge Diagnosis / Problem: hypercalcemia Discharge Goals Goal(s): Diagnostic testing, Therapeutic intervention Activity Recommendations Activity Limitations: resume your previous activity . Current Hospital Diet Patient's current hospital diet: Regular Diet Discharge Diet Recommended Diet: Regular Diet Pending Studies Studies pending at discharge: yes (urine culture ) List of pending studies: urine culture Medical Emergencies . Who to Call and When: Medical Emergencies: If at any time you feel your situation is an emergency, please call 911 immediately. . Non-Emergent Contact Non-Emergency issues call your: Primary Care Provider, Oncologist Call Non-Emergent contact if: temperature is above 101, your pain is unusual for you . . "Provider Documentation" section prepared by Mihai Riojas. . VTE Core Measure Inpt VTE Proph given/why not?: SCD's
[2016-08-17 07:47] VITALS: BP 102/67; PULSE 91; TEMP 36.7; O2SAT 96
[2016-08-17] MEDS ORDERED: POTASSIUM CHLORIDE 20 MEQ TABCR PO SCH (08:00)
[2016-08-17] MEDS: NYSTATIN SUSP 500,000 U/5 ML UDC PO SCH ×4 (08:00→19:57)
[2016-08-17] MEDS: BOOST BREEZE NUTRITION DRINK 1 BOX PO SCH ×4 (08:27→21:00)
[2016-08-17] MEDS: CALCITONIN SALMON NA 200 IU/AC 3.7 ML BTL NAE SCH (08:28)
[2016-08-17] MEDS: FAMOTIDINE IV INJ 20 MG in DEXTROSE 5% 100ML 100 ML IV SCH ×2 (08:28→21:30)
[2016-08-17] MEDS ORDERED: OPTIRAY 320 IV PRN (11:00)
[2016-08-17 11:17] VITALS: BP 100/65; PULSE 90; TEMP 36.8; O2SAT 98
--- NOTE | 2016-08-17 11:21 | DIAGNOSTIC IMAGING REPORT ---
CT SCAN OF THE CHEST WITH IV CONTRAST CLINICAL HISTORY: Metastatic breast cancer. COMPARISON STUDY: Chest CT dated 06/09/2016 and 07/16/2015. Nuclear bone scan dated 06/09/2016. TECHNIQUE: Following the IV administration of 93 cc of Optiray 320, CT scan of the thorax was performed from the thoracic inlet to the upper abdomen. Images are reviewed in the axial, sagittal, and coronal planes. IV contrast was administered without complication. CT DOSE: 567.44 mGycm FINDINGS: Thyroid: Imaged portions of the thyroid gland are normal in size and heterogeneous and attenuation. Subcentimeter low-attenuation nodules are identified. Thoracic aorta: The thoracic aorta is normal in caliber and demonstrates standard 3-vessel arch anatomy. No dissection is seen. Pulmonary vasculature: The pulmonary trunk is normal in caliber. There are no filling defects identified in the central pulmonary vessels to indicate pulmonary embolus. Note that this examination was not protocoled for evaluation of the pulmonary arteries. Heart: The heart is normal in size and configuration, and without pericardial effusion. Lungs and pleural spaces: There is no airspace consolidation or pleural effusion. Foci of linear atelectasis are present at the lung bases. Scattered calcified granulomas are observed. The trachea and central airways are clear. No concerning pulmonary lesion is seen. Mediastinum: There is no mediastinal lymphadenopathy. Nicole: Clear. Axillae: There is no axillary lymphadenopathy. Upper abdomen: The spleen is enlarged measuring 13.7 cm in length. There is trace perihepatic and perisplenic fluid. Skeletal structures: The skeletal structures are heterogeneously osteopenic. There is a large expansile mixed lytic and blastic lesion seen involving the posterior aspect of the right ninth rib on image #171. This is similar to previous. No definite additional bone lesions identified. A small defect in the right anterior fourth rib is unchanged from prior studies and is not clearly pathologic. Small hemangiomas are suggested in the bodies of T1 and T2. Soft tissues: There is a 12 mm enhancing ovoid nodule in the left breast seen on image #198. IMPRESSION: 1. There is no evidence of progressive metastatic disease as compared to 06/09/2016. 2. An expansile destructive lesion in the right posterior ninth rib is unchanged. 3. No definite additional bone lesions are seen. Diffuse osteopenia and heterogeneity of the skeletal structures is similar to previous and degrades assessment for small bone lesions. 4. The lungs are clear. 5. Splenomegaly and trace upper abdominal ascites. See report of abdominal CT performed concurrently for detailed abdominal findings. 6. There is a 12 mm enhancing nodule in the left breast. Correlation with any prior breast imaging will be required. Electronically signed by: Cali Banerjee M.D. 08/17/2016 11:19 AM Dictated Date/Time: 08/17/2016 11:07 AM
--- NOTE | 2016-08-17 11:47 | DIAGNOSTIC IMAGING REPORT ---
ADDENDUM Correlation with the patient's prior ultrasound dated 08/16/2016 was performed. Liver remains generally uniform based on CT criteria. Given the discrepancy present, MRI liver is suggested as alternative Electronically signed by: Froy Ridley M.D. 08/17/2016 1:21 PM Dictated Date/Time: 08/17/2016 1:19 PM ORIGINAL REPORT ABDOMEN AND PELVIS CT WITH IV AND ORAL CONTRAST CT DOSE: HISTORY: Breast carcinoma Metastatic breast cancer TECHNIQUE: Multiaxial CT images of the abdomen and pelvis were performed following the use of intravenous and oral contrast. COMPARISON STUDY: 06/09/2016 FINDINGS: Minimal bibasilar atelectatic atelectatic change. This is unchanged from the prior study. There is mild stable splenomegaly. Liver is uniform in appearance. Kidneys demonstrate slightly inhomogeneous enhancement with this considered unchanged in the prior study. There is a slightly complex left renal peripelvic cyst also unchanged. Pancreas is uniform. No significant retroperitoneal or retroperitoneal adenopathy. Several small mesenteric nodes unchanged. Bladder is midline. Several very small stable pelvic sidewall nodes also stable. Bowel pattern is nonobstructive. Expansile lesion of the right ninth rib is unchanged. Subtle heterogeneity of the bone mineral density with subtle lytic defects within the spine bony pelvis and hips. This is considered stable IMPRESSION: 1. Stable metastatic bone disease 2. Stable minimal abdominal and pelvic nodular change. 3. No evidence for new or progressive process. 4. Mild stable splenomegaly . 5. Stable slightly complex left renal cyst Electronically signed by: Froy Ridley M.D. 08/17/2016 11:45 AM Dictated Date/Time: 08/17/2016 11:35 AM
--- NOTE | 2016-08-17 12:25 | Hematology/Oncology Prog Note ---
Hematology/Onc Progress Note Date of Service Aug 17, 2016. Diagnoses Metastatic breast cancer. Hypercalcemia (refractory). Medications Medications Administered Medications (Trade) Dose Ordered Sig/Danika Route Start Time Stop Time Status Last Admin Dose Admin Sodium Chloride 1,000 ml @ 999 mls/hr Q1H1M STAT IV 08/13/16 12:24 08/13/16 13:24 DC 08/13/16 12:24 999 MLS/HR Sodium Chloride 1,000 ml @ 150 mls/hr Q6H40M ONCE IV 08/13/16 12:24 08/13/16 17:12 DC 08/13/16 12:24 150 MLS/HR Pamidronate Disodium 60 mg/ Sodium Chloride 1,020 ml @ 170 mls/hr Q6H IV 08/13/16 17:30 08/13/16 23:29 DC 08/13/16 17:35 170 MLS/HR Anastrozole (Arimidex Tab) 1 mg QAM PO 08/14/16 08:00 09/13/16 08:59 08/16/16 08:12 1 MG Calcitonin [place] (Fortical Nasal [place]) 1 spray QAM LIVIA 08/14/16 08:00 09/13/16 08:59 08/17/16 08:28 1 SPRAY Potassium Chloride/Sodium Chloride 1,000 ml @ 80 mls/hr [id number] IV 08/13/16 17:30 08/16/16 11:25 DC 08/16/16 03:08 80 MLS/HR Enteral Nutritional Formula (Boost Breeze Nutritional Drink) 1 box TIDM PO 08/13/16 17:00 08/14/16 14:52 DC 08/13/16 18:04 1 BOX Famotidine 20 mg/ Dextrose 102 ml @ 200 mls/hr Q12 IV 08/13/16 21:00 09/12/16 20:59 08/17/16 08:28 200 MLS/HR Potassium Citrate (Urocit-K Tab) 20 meq BID PO 08/14/16 20:00 09/13/16 19:59 08/16/16 08:00 20 MEQ Enteral Nutritional Formula (Boost Breeze Nutritional Drink) 0.5 box ACHS PO 08/14/16 16:30 09/13/16 16:29 08/16/16 17:32 0.5 BOX Potassium Chloride 10 meq/ Prmx 100 ml @ 100 mls/hr Q1H IV 08/15/16 09:00 08/15/16 10:59 DC 08/15/16 10:12 100 MLS/HR Prednisone (PredniSONE TAB) 10 mg QAM PO 08/16/16 08:00 09/15/16 07:59 08/16/16 08:01 10 MG Prednisone (PredniSONE TAB) 10 mg 1339 ONCE PO 08/15/16 13:39 08/15/16 13:53 DC 08/15/16 14:29 10 MG Nystatin (Mycostatin Susp) 10 ml QID PO 08/16/16 12:00 08/26/16 11:59 08/16/16 20:48 10 ML Subjective Elisha was seen and examined at bedside today. She continues to make slow but steady progress. She reports improving appetite and is able to ambulate with minimal assistance. Unfortunately, her refractory hypercalcemia remains somewhat of a mystery. She once again received bisphosphonate therapy and IV hydration. CT scan of the chest abdomen pelvis with contrast shows no evidence of visceral metastatic disease specific the liver which was of concern based on the ultrasound of the abdomen. Vital Signs Vital Signs Past 12 Hours Date Time Temp Pulse Resp B/P (MAP) Pulse Ox O2 Delivery O2 Flow Rate FiO2 08/17/16 11:17 36.8 90 16 100/65 (77) 98 Room Air 08/17/16 08:20 Room Air 08/17/16 07:47 36.7 91 16 102/67 (79) 96 Room Air 08/17/16 04:05 36.7 94 16 110/73 (85) 97 Room Air Physical Exam Head: normocephalic, atraumatic ENMT: normal ENT inspection Neck: supple Lungs: Auscuitation: breath sounds normal Cardiovascular: Apical Impulse: not displaced Heart Auscultation: RRR Abdomen: Bowel Sounds: normal Inspection & Palpation: soft, non-distended, no tenderness, guarding & rebound Extremities: no cyanosis, no edema Grossly intact Assessment & Plan 1. Generalized weakness 2. Hypercalcemia (refractory). 3. Metastatic breast cancer. Elisha was seen and examined at bedside again today. Her and daughter were present during my examination. I was very pleased to report her CAT scan shows no direct evidence of visceral disease progression. However, the refractory hypercalcemia continues to be problematic. From a clinical standpoint it seems like she is able to ambulate with minimal assistance however it may be helpful to pursue outpatient physical therapy along with close monitoring of serum chemistries specifically calcium. The patient's calcium levels have been refractory to all treatment to date. Perhaps, getting nephrology involved might prove to be beneficial. From an oncologic standpoint would like to offer her further salvage treatment however her current performance status is prohibitive. The patient and family have made it quite clear they are not ready for palliative care.
[2016-08-17] MEDS: POTASSIUM CITRATE 10 MEQ TAB PO SCH ×2 (12:26→13:07)
[2016-08-17] MEDS: ANASTROZOLE 1 MG TAB PO SCH (12:42)
--- NOTE | 2016-08-17 13:16 | Progress Note ---
Subjective Date of Service: Aug 17, 2016. Subjective pt continues with swallowing challenges to large pills, thrush is improved, family at bedside and has many questions regarding her calcium and possible second opinion. she has no focal complaints, admits to continued weakness but does not want to pursue inpatient rehab, will consider outpt rehab in her home town Problem List Medical Problems: (1) Breast cancer Status: Chronic (2) Dehydration Status: Acute (3) Hypercalcemia Status: Chronic Review of Systems Constitutional: + weakness, + fatigue, No fever, No chills Respiratory: + dyspnea on exertion, No cough, No shortness of breath Cardiac: No chest pain, No edema Abdomen: No pain, No nausea, No vomiting, No diarrhea Psychiatric: + depression symptoms, No anhedonism, No anxiety Objective Vital Signs Date Time Temp Pulse Resp B/P (MAP) Pulse Ox O2 Delivery O2 Flow Rate FiO2 08/17/16 11:17 36.8 90 16 100/65 (77) 98 Room Air 08/17/16 08:20 Room Air 08/17/16 07:47 36.7 91 16 102/67 (79) 96 Room Air 08/17/16 04:05 36.7 94 16 110/73 (85) 97 Room Air 08/17/16 00:00 Room Air 08/16/16 23:36 36.7 91 16 104/67 (79) 97 Room Air 08/16/16 20:00 Room Air 08/16/16 19:42 36.6 96 16 100/66 (77) 98 Room Air 08/16/16 16:30 96 Room Air 08/16/16 16:11 36.7 93 20 99/65 (76) 96 08/16/16 13:49 117 98 Physical Exam General Appearance: WD/WN, + mild distress (mostly from weakness) Neck: supple, no JVD Respiratory/Chest: chest non-tender, lungs clear, normal breath sounds (but decreased at bases encouraged incentive spirometry) Cardiovascular: regular rate, rhythm, no murmur Abdomen: normal bowel sounds, non tender, soft Extremities: no pedal edema, no calf tenderness Neurologic/Psychiatric: alert, oriented x 3 Laboratory Results Last 24 Hours Test 08/17/16 05:41 Erythrocyte Sedimentation Rate 3 mm/hr Sodium Level 135 mmol/L Potassium Level 3.2 mmol/L Chloride Level 103 mmol/L Carbon Dioxide Level 23 mmol/L Anion Gap 9.0 mmol/L Blood Urea Nitrogen 9 mg/dl Creatinine 0.64 mg/dl Est Creatinine Clear Calc Drug Dose 77.4 ml/min Estimated GFR () 104.8 Estimated GFR (Non- 90.4 BUN/Creatinine Ratio 14.7 Random Glucose 89 mg/dl Calcium Level 10.1 mg/dl Total Bilirubin 2.3 mg/dl Aspartate Amino Transf (AST/SGOT) 150 U/L Alanine Aminotransferase (ALT/SGPT) 110 U/L Alkaline Phosphatase 137 U/L Total Protein 6.5 gm/dl Albumin 3.1 gm/dl Globulin 3.4 gm/dl Albumin/Globulin Ratio 0.9 Assessment and Plan 71 F with symptomatic hypercalcemia associated with malignancy. Given pamidronate in the ER, has remained normal off ivf with miacalcin hypercalcemia, nasal miacalcin,given her track record for quick rebound consider fosamax on discharge or at least close monitoring abnormal lft will follow abdominal us ordered by oncology with suggestion of liver changes and need for follow up CT oral thrush started nystatin, improved appearance but still not smooth swallowing hypokalemia will augment
[2016-08-17] MEDS: POTASSIUM CHLORIDE 20 MEQ/15 ML UDC PO SCH ×2 (13:59→20:01)
[2016-08-17 14:52] VITALS: BP 123/81; PULSE 99; TEMP 36.5; O2SAT 95
--- NOTE | 2016-08-17 14:59 | Medical Consult ---
Consultation Date of Consultation: Aug 17, 2016. Attending Physician: Mihai Riojas M.D. History of Present Illness pt seen for + bc/ 1/2 sets with gpr. afebrile. on no abx. recent diagnosis metastatic breast ca to bone and Increased Calcium. currently denies f/c. no pain. no abd pain ,no n/v/d. eating well. no cp, sob, cough, wheeze. no gu symptoms. some constipation. all remaining ros reviewed and are negative. Past Medical/Surgical History Medical Problems: (1) Breast cancer Status: Chronic (2) Dehydration Status: Acute (3) Hypercalcemia Status: Chronic Family History FHx: cancer Hypertension Social History Smoking Status: Never Smoker Smokeless Tobacco Use: No Alcohol Use: none Drug Use: none Marital Status: Housing Status: lives with family Occupation Status: retired Allergies Coded Allergies: No Known Allergies (Unverified , 08/13/16) Current Inpatient Medications Current Inpatient Medications Medications (Trade) Dose Ordered Sig/Danika Route Start Time Stop Time Status Last Admin Dose Admin Acetaminophen (Tylenol Tab) 650 mg Q4H PRN PO 08/13/16 15:15 09/12/16 15:14 Zolpidem Tartrate (Ambien Tab) 5 mg HSZ PRN PO 08/13/16 15:15 09/12/16 15:14 Anastrozole (Arimidex Tab) 1 mg QAM PO 08/14/16 08:00 09/13/16 08:59 08/17/16 12:42 1 MG Bisacodyl (Dulcolax Tab) 5 mg DAILY PRN PO 08/13/16 15:15 09/12/16 15:14 Calcitonin [place] (Fortical Nasal [place]) 1 spray QAM LIVIA 08/14/16 08:00 09/13/16 08:59 08/17/16 08:28 1 SPRAY Polyethylene (Miralax Powder Packet) 17 gm DAILY PRN PO 08/13/16 15:15 09/12/16 15:14 Ondansetron HCl (Zofran Inj) 4 mg Q6H PRN IV 08/13/16 15:30 09/12/16 15:29 Famotidine 20 mg/ Dextrose 102 ml @ 200 mls/hr Q12 IV 08/13/16 21:00 8/6/17 20:59 08/17/16 08:28 200 MLS/HR Miscellaneous (Iv Fluids Completed) 1 ea PRN PRN N/A 08/13/16 16:00 08/13/17 15:59 Enteral Nutritional Formula (Boost Breeze Nutritional Drink) 0.5 box ACHS PO 08/14/16 16:30 09/13/16 16:29 08/17/16 12:40 0.5 BOX Prednisone (PredniSONE TAB) 10 mg QAM PO 08/16/16 08:00 09/15/16 07:59 08/17/16 12:26 10 MG Nystatin (Mycostatin Susp) 10 ml QID PO 08/16/16 12:00 08/26/16 11:59 08/17/16 12:41 10 ML Ioversol (Optiray 320) 125 ml UD PRN IV 08/17/16 11:00 08/21/16 10:59 Potassium Chloride (Sammie Ciel Elix) 20 meq BID PO 08/17/16 13:30 09/16/16 13:29 08/17/16 13:59 20 MEQ Physical Exam Date Time Temp Pulse Resp B/P (MAP) Pulse Ox O2 Delivery O2 Flow Rate FiO2 08/17/16 14:52 36.5 99 20 123/81 (95) 95 Room Air 08/17/16 11:17 36.8 90 16 100/65 (77) 98 Room Air 08/17/16 08:20 Room Air 08/17/16 07:47 36.7 91 16 102/67 (79) 96 Room Air 08/17/16 04:05 36.7 94 16 110/73 (85) 97 Room Air 08/17/16 00:00 Room Air 08/16/16 23:36 36.7 91 16 104/67 (79) 97 Room Air 08/16/16 20:00 Room Air 08/16/16 19:42 36.6 96 16 100/66 (77) 98 Room Air 08/16/16 16:30 96 Room Air 08/16/16 16:11 36.7 93 20 99/65 (76) 96 General Appearance: WD/WN, no apparent distress Head: normocephalic, atraumatic Eyes: normal inspection, EOMI Neck: supple Respiratory/Chest: lungs clear, normal breath sounds, no respiratory distress Cardiovascular: regular rate, rhythm, no edema Abdomen/GI: non tender, soft Extremities/Musculoskelatal: no pedal edema Neurologic/Psych: alert, oriented x 3 Lymphatic: no adenopathy Laboratory Results Item Value Date Time Blood Culture - Preliminary Resulted 08/13/16 1255 Blood Gram Positive Bacilli Blood Culture - Preliminary Resulted 08/13/16 1306 Blood NO GROWTH TO DATE. Last 24 Hours Test 08/17/16 05:41 Erythrocyte Sedimentation Rate 3 mm/hr Sodium Level 135 mmol/L Potassium Level 3.2 mmol/L Chloride Level 103 mmol/L Carbon Dioxide Level 23 mmol/L Anion Gap 9.0 mmol/L Blood Urea Nitrogen 9 mg/dl Creatinine 0.64 mg/dl Est Creatinine Clear Calc Drug Dose 77.4 ml/min Estimated GFR () 104.8 Estimated GFR (Non- 90.4 BUN/Creatinine Ratio 14.7 Random Glucose 89 mg/dl Calcium Level 10.1 mg/dl Total Bilirubin 2.3 mg/dl Aspartate Amino Transf (AST/SGOT) 150 U/L Alanine Aminotransferase (ALT/SGPT) 110 U/L Alkaline Phosphatase 137 U/L Total Protein 6.5 gm/dl Albumin 3.1 gm/dl Globulin 3.4 gm/dl Albumin/Globulin Ratio 0.9 Assessment & Plan (1) Positive blood culture Assessment & Plan: likely skin fito, continue to hold abx and follow final ID. If skin fito, ok for d/c from ID standpoint.
[2016-08-17 19:09] VITALS: BP 103/71; PULSE 98; TEMP 36.7; O2SAT 94
[2016-08-17 20:00] VITALS: O2SAT 94
[2016-08-18] VITALS: BP 95/61; PULSE 56; TEMP 36.5; O2SAT 94; O2SAT 96
[2016-08-18 04:00] VITALS: BP 104/69; PULSE 67; TEMP 36.9; O2SAT 99
[2016-08-18 07:15] VITALS: Ht 162.6 cm; Wt 67.2 kg
[2016-08-18 07:35] VITALS: BP 97/63; PULSE 92; TEMP 36.9; O2SAT 95
[2016-08-18] MEDS: CALCITONIN SALMON NA 200 IU/AC 3.7 ML BTL NAE SCH (07:52)
[2016-08-18] MEDS: NYSTATIN SUSP 500,000 U/5 ML UDC PO SCH ×2 (07:53→11:44)
[2016-08-18] MEDS: POTASSIUM CHLORIDE 20 MEQ/15 ML UDC PO SCH (07:53)
[2016-08-18] MEDS: ANASTROZOLE 1 MG TAB PO SCH (07:57)
[2016-08-18 08:03] LABS: BUN/CREATININE RATIO 14.2 (10-20); CREATININE 0.61 mg/dl (0.60-1.20); POTASSIUM 3.2 mmol/L (3.5-5.1)
[2016-08-18 08:06] LABS: ALB/GLOB RATIO 0.9 (0.9-2)
[2016-08-18] MEDS: FAMOTIDINE IV INJ 20 MG in DEXTROSE 5% 100ML 100 ML IV SCH (08:10)
[2016-08-18] MEDS: BOOST BREEZE NUTRITION DRINK 1 BOX PO SCH ×2 (08:12→11:44)
--- NOTE | 2016-08-18 08:21 | Hematology/Oncology Prog Note ---
Hematology/Onc Progress Note Date of Service Aug 18, 2016. Diagnoses Metastatic breast cancer. Hypercalcemia (refractory). Subjective Elisha was seen and examined at bedside today. She continues to make slow but steady progress. Calcium now within normal limits. Elisha is able to ambulate with minimal assistance. Multiple concerning factors particularly her failing performance status. Her peripheral blood counts also seem to be in decline which may suggest she has metastatic disease in the bone marrow. Discussed plans upon discharge which will include weekly monitoring of chemistries and providing IV hydration during her period of recovery. I am reluctant to restart chemotherapy until she improves her performance status. Vital Signs Vital Signs Past 12 Hours Date Time Temp Pulse Resp B/P (MAP) Pulse Ox O2 Delivery O2 Flow Rate FiO2 08/18/16 07:35 36.9 92 20 97/63 (74) 95 Room Air 08/18/16 04:00 36.9 67 20 104/69 (81) 99 Room Air 08/18/16 00:00 94 Room Air 08/18/16 00:00 36.5 56 20 95/61 (72) 96 Room Air Physical Exam Head: normocephalic, atraumatic ENMT: normal ENT inspection Neck: supple Lungs: Auscuitation: breath sounds normal Cardiovascular: Apical Impulse: not displaced Heart Auscultation: RRR Abdomen: Bowel Sounds: normal Inspection & Palpation: soft, non-distended, no tenderness, guarding & rebound Extremities: no cyanosis, no edema Laboratory 08/16/16 05:55 Red Blood Count 2.83, Mean Corpuscular Volume 100.4, Mean Corpuscular Hemoglobin 34.6, Mean Corpuscular Hemoglobin Concent 34.5, Mean Platelet Volume 11.0, Neutrophils (%) (Auto) 68.5, Lymphocytes (%) (Auto) 23.1, Monocytes (%) ( Auto) 7.5, Eosinophils (%) (Auto) 0.4, Basophils (%) (Auto) 0.1, Neutrophils # ( Auto) 8.18, Lymphocytes # (Auto) 2.76, Monocytes # (Auto) 0.90, Eosinophils # ( Auto) 0.05, Basophils # (Auto) 0.01 08/18/16 07:27 Test 08/13/16 13:10 08/13/16 13:12 08/13/16 13:13 08/13/16 14:45 Lipase 107 U/L (73-393) Bedside Lactic Acid Venous 1.15 mmol/L (0.90-1.70) Bedside Troponin I < 0.030 ng/ml (0-0.045) Urine Color YELLOW Urine Appearance CLEAR (CLEAR) Urine pH 7.5 (4.5-7.5) Urine Specific [place] 1.013 (1.000-1.030) Urine Protein NEG (NEG) Urine Glucose (UA) NEG (NEG) Urine Ketones NEG (NEG) Urine Occult Blood NEG (NEG) Urine Nitrite NEG (NEG) Urine Bilirubin NEG (NEG) Urine Urobilinogen NEG (NEG) Urine Leukocyte Esterase TRACE (NEG) Urine WBC (Auto) 1-5 /hpf (0-5) Urine RBC (Auto) 0-4 /hpf (0-4) Urine Hyaline Casts (Auto) 1-5 /lpf (0-5) Urine Epithelial Cells (Auto) 5-10 /lpf (0-5) Urine Bacteria (Auto) NEG (NEG) Test 08/15/16 05:15 08/16/16 05:55 08/16/16 10:54 08/16/16 11:55 Poikilocytosis PRESENT Spherocytes 1+ White Blood Count 11.95 K/uL (4.8-10.8) Red Blood Count 2.83 M/uL (4.2-5.4) Hemoglobin 9.8 g/dL (12.0-16.0) Hematocrit 28.4 % (37-47) Mean Corpuscular Volume 100.4 fL (80-100) Mean Corpuscular Hemoglobin 34.6 pg (25-34) Mean Corpuscular Hemoglobin Concent 34.5 g/dl (32-36) Platelet Count 50 K/uL (130-400) Mean Platelet Volume 11.0 fL (7.4-10.4) Neutrophils (%) (Auto) 68.5 % Lymphocytes (%) (Auto) 23.1 % Monocytes (%) (Auto) 7.5 % Eosinophils (%) (Auto) 0.4 % Basophils (%) (Auto) 0.1 % Neutrophils # (Auto) 8.18 K/uL (1.4-6.5) Lymphocytes # (Auto) 2.76 K/uL (1.2-3.4) Monocytes # (Auto) 0.90 K/uL (0.11-0.59) Eosinophils # (Auto) 0.05 K/uL (0-0.5) Basophils # (Auto) 0.01 K/uL (0-0.2) RDW Standard Deviation 71.2 fL (36.4-46.3) RDW Coefficient of Variation 19.5 % (11.5-14.5) Immature Granulocyte % (Auto) 0.4 % Immature Granulocyte # (Auto) 0.05 K/uL (0.00-0.02) Nucleated RBC Absolute Count (auto) 0.07 K/uL (0-0) Nucleated Red Blood Cells % 0.6 % Polychromasia 1+ Anisocytosis PRESENT Pappenheimer Bodies 1+ Magnesium Level 1.8 mg/dl (1.8-2.4) Direct Bilirubin 0.9 mg/dl (0-0.2) CA 15-3 Antigen 2130 U/mL (<32) CA 27.29 2476 U/ML (<38) Chemistry Specimen Hemolysis Test 08/17/16 05:41 08/18/16 07:27 Erythrocyte Sedimentation Rate 3 mm/hr (0-21) Anion Gap 10.0 mmol/L (3-11) Est Creatinine Clear Calc Drug Dose 80.9 ml/min Estimated GFR () 106.5 Estimated GFR (Non- 91.9 BUN/Creatinine Ratio 14.2 (10-20) Calcium Level 10.0 mg/dl (8.5-10.1) Total Bilirubin 2.5 mg/dl (0.2-1) Aspartate Amino Transf (AST/SGOT) 152 U/L (15-37) Alanine Aminotransferase (ALT/SGPT) 120 U/L (12-78) Alkaline Phosphatase 144 U/L (45-117) Total Protein 6.6 gm/dl (6.4-8.2) Albumin 3.2 gm/dl (3.4-5.0) Globulin 3.4 gm/dl (2.5-4.0) Albumin/Globulin Ratio 0.9 (0.9-2) Date/Time Source Procedure Growth Status 08/13/16 13:06 Blood Blood Culture - Preliminary NO GROWTH TO DATE. Resulted 08/16/16 12:50 Urine , Clean Catch Urine Culture - Preliminary PIN-POINT GROWTH PRESENT, REINCUBATING. Resulted Assessment & Plan 1. Generalized weakness 2. Hypercalcemia (refractory). 3. Metastatic breast cancer. Elisha was seen and examined at bedside again today. Again, seems to be making slow but steady progress but certainly not to the degree where I feel comfortable to resume chemotherapy in the near future. Therefore, will plan on weekly clinic follow-up particularly monitoring labs and providing IV normal saline as well as intermittent bisphosphonate therapy in the attempt to control her calcium levels. Her peripheral counts are also concerning and when chemotherapy is resumed her dose will be modified significantly. Elisha's overall prognosis is poor and eventually will need to consider a palliative approach. The plan was discussed with Elisha and her bedside today. From an oncologic standpoint she may be discharged home. Tentatively, she will return to clinic on 08/20. Thank you again for cystic mass in the care of this very pleasant patient.
[2016-08-18] MEDS: POTASSIUM CHLR 10 MEQ / WTR 10 MEQ in PREMIXED WATER 100 ML IV SCH ×3 (10:17→13:00)
[2016-08-18 11:25] VITALS: BP 90/54; PULSE 109
[2016-08-18 11:52] VITALS: BP 90/54; PULSE 96; TEMP 36.5; O2SAT 95
[2016-08-18 14:11] VITALS: BP 90/54; PULSE 96; TEMP 36.5; O2SAT 95
[2016-08-18] MEDS ORDERED: NYSS5 PO (15:59)
--- NOTE | 2016-08-18 15:59 | Discharge Summary ---
Discharge Summary Date of Service Aug 18, 2016. Discharge Summary Admission Date: Aug 13, 2016 at 15:09 Discharge Date: Aug 18, 2016 Discharge Disposition: Home Principal Diagnosis: hypercalcemia associated with malignancy Problems/Secondary Diagnoses: (1) Breast cancer Status: Chronic (2) Hypercalcemia Status: Chronic Medication Reconciliation New Medications: Nystatin (Nystatin) 5 Ml Susp 10 ML PO QID, #200 ML Continued Medications: Anastrozole (Anastrozole) 1 Mg Tab 1 TAB PO QAM Bisacodyl (Dulcolax) 5 Mg Tab 1 TAB PO UD PRN for Constipation Calcitonin [place] (Calcitonin-[place]) 30 [place]/3.7 Ml Soln 1 SPRAY INH QAM Ondansetron Hcl (Zofran) 8 Mg Tab 8 MG PO Q8 PRN for Nausea Polyethylene Glycol 3350 (Bulk (Polyethylene Glycol 3350) 1 Pow Pow 17 GM PO DAILY PRN for Constipation Potassium Ext Rel (Klor-Con) 20 Meq Tabcr 20 MEQ PO QAM Prednisone Tab (Prednisone) 10 Mg Tab 10 MG PO QAM Prochlorperazine Maleate (Compazine) 10 Mg Tab 10 MG PO Q6H for Nausea Discharge Exam Review of Systems: Constitutional: + weakness, No fever, No chills, No sweats Respiratory: No cough, No sputum, No shortness of breath, No dyspnea on exertion Cardiovascular: No chest pain, No edema Physical Exam: General Appearance: WD/WN, + mild distress Eyes: PERRL, EOMI Respiratory/Chest: chest non-tender, lungs clear, normal breath sounds Cardiovascular: regular rate, rhythm, no murmur Hospital Course 71 F with symptomatic hypercalcemia associated with malignancy. Given pamidronate in the ER, has remained normal off ivf with miacalcin last admission she was shown to have low Pth and high PthRP suggesting this is all from her malignancy, this given she has normal renal function hypercalcemia, nasal miacalcin,given her track record for quick rebound consider fosamax 5 mg a day if worsened as outpt, dishcharge Calcium is 10 abnormal lft will follow abdominal us ordered by oncology with suggestion of liver changes, follow up CT does not see liver parenchymal change oral thrush started nystatin, improved appearance hypokalemia will augment did have fall as inpatient, strongly encouraged rehab, pt and family refused will have outpt rehab Total Time Spent: Greater than 30 minutes This includes examination of the patient, discharge planning, medication reconciliation, and communication with other providers. Discharge Instructions Please refer to the electronic Patient Visit Report (Discharge Instructions) for additional information.
== END 2016-08-18 16:50 | disposition home or self-care (01) ==
LOC: C.EDB 11:52 → C.4E 15:09 → ENRESERV 15:33
PROVIDERS: ADMIT Hospitalist; ATTEND Internal Medicine
DX: E83.52 Hypercalcemia (principal); C50.919 Malignant neoplasm of unspecified site of unspecified female breast; C79.51 Secondary malignant neoplasm of bone; Z79.899 Other long term (current) drug therapy; Z92.21 Personal history of antineoplastic chemotherapy

== ENCOUNTER 2016-08-25 00:51 | Inpatient (IN) | payer OTHER, MEDICARE ==
[~2016-08-25] VITALS: Ht 161.9 cm; Wt 68.6 kg
[~2016-08-25 00:51] MED LIST changes: -MCLIN; +MCLIN INH; -MCRK20 PO; +NYSS5 PO; +POTA20TA16 PO; +PRED10TA PO
--- NOTE | 2016-08-25 01:17 | EMERGENCY ROOM VISIT NOTE ---
History Report prepared by Page: Parveen López Under the Supervision of: Dr. Joanna Gupta D.O. First contact with patient: 00:55 Chief Complaint: ABNORMAL LABS Stated Complaint: ABDNORMAL LABS,COMING FROM ANOTHER HOSPITAL History of Present Illness The patient is a 71 year old female who presents to the Emergency Room with complaints of abnormal laboratory results. The patient presents from [facility] in [place]. While she was there, she received 1500 cc's of normal saline, a GI cocktail, and 40 mg of Protonix while there. Laboratory studies that were taken there showed a calcium level of 11.4, a potassium level of 3.2, elevated LFTs, and a total bilirubin of 4.1. She has a past medical history of Metastatic Breast Cancer. Over the past couple of days, she has had a decreased appetite and has generally not felt well. She has also been very restless, weak, and having trouble sleeping and getting comfortable. She was admitted here in the past for high calcium. Source of History: patient Onset: Today Position: other (global) Symptom Intensity: calcium level of 11.4, a potassium level of 3.2, elevated LFTs, and a total bilirubin of 4.1 Quality: other (Abnormal laboratory results) Timing: constant Associated Symptoms: + weakness Note: She has a decreased appetite as well. She denies any other abnormal symptoms. Review of Systems See HPI for pertinent positives & negatives. A total of 10 systems reviewed and were otherwise negative. Past Medical & Surgical Medical Problems: (1) Breast cancer (2) Electrolyte depletion (3) Hypercalcemia (4) Positive blood culture (5) Weakness Family History FHx: cancer Hypertension Social History Smoking Status: Never Smoker Smokeless Tobacco Use: No Drug Use: none Marital Status: Housing Status: lives with family Occupation Status: retired Current/Historical Medications Scheduled Anastrozole (Anastrozole), 1 TAB PO QAM Calcitonin [place] (Calcitonin-[place]), 1 SPRAY INH QAM Denosumab (Xgeva), 120 MG INJ DIRECTED Potassium Ext Rel (Klor-Con), 20 MEQ PO QAM Prednisone Tab (Prednisone), 10 MG PO QAM Prochlorperazine Maleate (Compazine), 10 MG PO Q6H Zoledronic Acid (Zometa), Unknown Dose IV DIRECTED [Aredia], Unknown Dose IV DIRECTED Scheduled PRN Acetaminophen (Tylenol), 650 MG PO DIRECTED PRN for Pain or Fever Bisacodyl (Dulcolax), 1 TAB PO UD PRN for Constipation Docusate Sodium (Colace), 1 CAP PO BID PRN for Constipation Famotidine (Pepcid Ac), 10 MG PO DIRECTED PRN for Heartburn Ibuprofen (Advil), 200-600 MG PO Q4H PRN for Pain or Fever Ondansetron Hcl (Zofran), 8 MG PO Q8 PRN for Nausea Polyethylene Glycol 3350 (Bulk (Polyethylene Glycol 3350), 17 GM PO DAILY PRN for Constipation Allergies Coded Allergies: No Known Allergies (Unverified , 08/25/16) Physical Exam Vital Signs Date Time Temp Pulse Resp B/P (MAP) Pulse Ox O2 Delivery O2 Flow Rate FiO2 08/25/16 02:54 95 08/25/16 02:49 96 18 114/71 96 Room Air 08/25/16 00:53 36.5 102 20 97/52 97 Room Air Physical Exam General: Appears slightly lethargic. HEENT: Head - normocephalic and atraumatic Pupils are equal, round, and reactive to light. Extraocular eye muscles are intact, scleral icterus present. Nose - moist nasal mucosa without discharge. Mouth - moist buccal mucosa. Oropharynx is nonerythematous and there is no tonsillar exudate or edema noted. Neck: Supple; no JVD, nuchal rigidity, cervical lymphadenopathy. Heart: Regular rate and rhythm. There is a normal S1 and S2 with no murmurs, clicks, or gallops appreciated. Lungs: Clear to auscultation bilaterally with no wheezes, rales, or rhonchi. Abdomen: Soft, completely nontender, nondistended, with good bowel sounds. There are no palpable pulsatile masses or hepatosplenomegaly. There is no guarding, rigidity, or rebound noted. Extremities: No evidence of cyanosis, clubbing, or edema. There are easily palpable peripheral pulses. Skin: pale, warm, and dry with good turgor and no rashes. Medical Decision & Procedures Laboratory Results 08/25/16 01:42 Test 08/25/16 01:42 Anion Gap 9.0 mmol/L (3-11) Est Creatinine Clear Calc Drug Dose 85.3 ml/min Estimated GFR () 108.2 Estimated GFR (Non- 93.4 BUN/Creatinine Ratio 17.1 (10-20) Calcium Level 10.2 mg/dl (8.5-10.1) Phosphorus Level 0.6 mg/dl (2.5-4.9) Magnesium Level 2.2 mg/dl (1.8-2.4) Total Bilirubin 4.0 mg/dl (0.2-1) Aspartate Amino Transf (AST/SGOT) 155 U/L (15-37) Alanine Aminotransferase (ALT/SGPT) 116 U/L (12-78) Alkaline Phosphatase 155 U/L (45-117) Total Protein 6.1 gm/dl (6.4-8.2) Albumin 3.0 gm/dl (3.4-5.0) Globulin 3.1 gm/dl (2.5-4.0) Albumin/Globulin Ratio 1.0 (0.9-2) Laboratory results per my review. Medications Administered Medications (Trade) Dose Ordered Sig/Danika Route Start Time Stop Time Status Last Admin Dose Admin Potassium Chloride (Kcl 10 Meq / Wtr) 10 meq NOW STAT IV 08/25/16 02:22 08/25/16 02:23 DC 08/25/16 02:49 10 MEQ Potassium Phosphate 30 mmol/ Sodium Chloride 510 ml @ 100 mls/hr TODAY@0300 ONCE IV 08/25/16 03:00 08/25/16 08:05 08/25/16 04:04 100 MLS/HR Procedure Potassium Chloride 10 meq IV KPhos - 30mMol IV ED Course 0055: Past medical records reviewed. The patient was evaluated in room A3. A complete history and physical exam was performed. Records from [facility] were reviewed. An IV lock was initiated and labs were drawn as above. 0157: Upon reevaluation, I discussed findings and results with the patient. She verbalized agreement of the treatment plan. I spoke with Dr. Aaron of the [facility] – [place] Hospitalist Service. The patient will be evaluated for further management and care. 0222: Ordered Potassium Chloride 10 meq IV 0240: At this time, I updated the patient on her laboratory results. 0245: Ordered Kphos IV Medical Decision The patient is a 71 year old female who presents to the ED with abnormal laboratory results. Differential diagnosis includes hypercalcemia, hypokalemia, dehydration, and liver failure. I attest that I have personally reviewed the patient's current medication list. Patient was found to be hypotensive. Her blood pressure will be addressed during her inpatient management. Laboratory Results: Potassium 3, BUN and creatinine normal, calcium 10.1, phosphorus 0.6, magnesium 2.2, glucose 95, total bilirubin 4, AST 155, ALT 116, and alc phos 155. This is a 71-year-old female patient with metastatic breast cancer to bone. She receives her oncology treatment here at [facility]. She was evaluated overnight at [facility] for generalized weakness and loss of appetite. She was found to have an elevated calcium level and a low potassium level. They spoke with the oncologist here at [facility] and recommended transfer here for admission. Consults Time Called: 0155 Consulting Physician: Dr. Agnieszka Santos [facility] [place] Returned Call: [phone] He will be evaluating the patient for further management and care. Impression Primary Impression: Hypercalcemia Additional Impressions: Hypophosphatemia Hypokalemia Scribe Attestation The scribe's documentation has been prepared under my direction and personally reviewed by me in its entirety. I confirm that the note above accurately reflects all work, treatment, procedures, and medical decision making performed by me. Departure Information Dispostion Being Evaluated By Hospitalist Willie Khan D.O. (PCP) Patient Instructions My [facility] Health Problem Qualifiers
[2016-08-25] MEDS ORDERED: ACET-1311 PO (01:25)
[2016-08-25] MEDS ORDERED: AREDIA IV (01:25)
[2016-08-25] MEDS ORDERED: ZOLE1INJ IV (01:25)
[2016-08-25] MEDS ORDERED: FAMO10TA10 PO (01:25)
[2016-08-25] MEDS ORDERED: DOCU-94 PO (01:25)
[2016-08-25] MEDS ORDERED: DENOINJ INJ (01:25)
[2016-08-25] MEDS ORDERED: IBUP-1050 PO (01:25)
[2016-08-25 02:06] LABS: BUN/CREATININE RATIO 17.1 (10-20); CALCIUM 10.2 mg/dl (8.5-10.1); CREATININE 0.58 mg/dl (0.60-1.20); MAGNESIUM 2.2 mg/dl (1.8-2.4)
[2016-08-25] MEDS ORDERED: POTASSIUM CHLORIDE 10 MEQ / 100ML WTR IV STA (02:22)
[2016-08-25 02:34] LABS: PHOSPHORUS 0.6 mg/dl (2.5-4.9)
[2016-08-25] MEDS ORDERED: POTASSIUM CHLR 20 MEQ / WTR 20 MEQ in PREMIXED WATER 100 ML IV STA (02:38)
[2016-08-25] MEDS ORDERED: POTASSIUM PHOS 3 MMOL/1 ML INFUSION IV STA ×2 (02:38→02:59)
[2016-08-25] MEDS ORDERED: BISACODYL 5 MG TABEC PO PRN (02:45)
[2016-08-25] MEDS ORDERED: ONDANSETRON 8 MG TAB PO PRN (02:45)
[2016-08-25] MEDS ORDERED: DOCUSATE SODIUM 100 MG CAP PO PRN (02:45)
[2016-08-25] MEDS ORDERED: FAMOTIDINE 20 MG TAB PO PRN (02:45)
[2016-08-25] MEDS ORDERED: POTASSIUM PHOSPHATE INJ 30 MMOL in SODIUM CHLORIDE 0.9% 500ML 500 ML IV ONE (03:00)
--- NOTE | 2016-08-25 03:13 | History and Physical ---
History & Physical Date & Time of Service: Aug 25, 2016 at 03:06 Chief Complaint: Abdnormal Labs,Coming From Another Hospital Primary Care Physician: Willie Gutierrez D.O. History of Present Illness Source: patient, family 71 y/o F history of breast CA with bone mets, recurrent hypercalcemia, poor PO intake, weight loss and electrolyte abnormalities. The pt was transferred to the ER at [facility] by request of her Oncologist. She had been to the ER earlier in the day due to weakness and was found to have several lab abnormalities including mild hypercalcemia, hypokalemia and severe hypophosphatemia. Labs also show transaminitis, hyperbilirubinemia, leukocytosis and thrombocytopenia. She denies a fever, SOB, vomiting, diarrhea or dysuria. The pt had been to [facility] on 2 separate occasions in July/August for similar complaints. She has required outpatient fluid-electrolyte infusions due to poor intake and chronic deficiencies. During a hospitalization earlier in the month, she had an abdominal ultrasound due to elevated liver enzymes. The ultrasound suggested liver metastasis, however, this was followed by a CT which contradicted the ultrasound reading. The pt has not had chemotherapy since June and was last treated with Xeloda. Her hypercalcemia is currently being treated with nasal calcitonin and a monthly Bisphosphonate. Past Medical/Surgical History Medical Problems: (1) Breast cancer - metastatic to bone (2) Hypercalcemia 3) Chronic electrolyte abnormalities 4) Elevated liver enzymes Family History FHx: cancer Hypertension Social History Smoking Status: Never Smoker Smokeless Tobacco Use: No Drug Use: none Marital Status: Housing status: lives with family Occupational Status: retired Multi-Drug Resistant Organisms History of MDRO: No Allergies Coded Allergies: No Known Allergies (Unverified , 08/25/16) Home Medications Scheduled Anastrozole (Anastrozole), 1 TAB PO QAM Calcitonin [place] (Calcitonin-[place]), 1 SPRAY INH QAM Denosumab (Xgeva), 120 MG INJ DIRECTED Potassium Ext Rel (Klor-Con), 20 MEQ PO QAM Prednisone Tab (Prednisone), 10 MG PO QAM Prochlorperazine Maleate (Compazine), 10 MG PO Q6H Zoledronic Acid (Zometa), Unknown Dose IV DIRECTED [Aredia], Unknown Dose IV DIRECTED Scheduled PRN Acetaminophen (Tylenol), 650 MG PO DIRECTED PRN for Pain or Fever Bisacodyl (Dulcolax), 1 TAB PO UD PRN for Constipation Docusate Sodium (Colace), 1 CAP PO BID PRN for Constipation Famotidine (Pepcid Ac), 10 MG PO DIRECTED PRN for Heartburn Ibuprofen (Advil), 200-600 MG PO Q4H PRN for Pain or Fever Ondansetron Hcl (Zofran), 8 MG PO Q8 PRN for Nausea Polyethylene Glycol 3350 (Bulk (Polyethylene Glycol 3350), 17 GM PO DAILY PRN for Constipation Review of Systems Constitutional: + weight loss, + weakness, + fatigue, No fever, No chills, No sweats Eyes: No worsening of vision ENT: No hearing loss, No unusual epistaxis, No nasal symptoms Respiratory: No cough, No sputum, No wheezing Cardiovascular: No chest pain, No orthopnea, No PND Abdomen: + nausea, + problem reported (Poor PO intake), No pain, No vomiting Genitourinary - Female: No dysuria, No urinary frequency, No urinary urgency Neurologic: + weakness, No memory loss Psychiatric: + depression symptoms Endocrine: + fatigue Hematologic / Lymphatic: No abnormal bleeding/bruising Integumentary: + color change (Jaundice reported), No rash Allergic / Immunologic: No environmental allergies Physical Exam Vital Signs Date Time Temp Pulse Resp B/P (MAP) Pulse Ox O2 Delivery O2 Flow Rate FiO2 08/25/16 00:53 36.5 102 20 97/52 97 Room Air General Appearance: no apparent distress, + pertinent finding (Lethargic elderly female ) Head: normocephalic Eyes: PERRL, EOMI, + pertinent finding (Icterus present) ENT: normal ENT inspection, pharynx normal Neck: supple, no JVD Respiratory/Chest: chest non-tender, lungs clear, normal breath sounds, no respiratory distress, no accessory muscle use Cardiovascular: regular rate, rhythm, no edema, no gallop, no JVD, no murmur, normal peripheral pulses Abdomen/GI: normal bowel sounds, non tender, soft Back: normal inspection, no CVA tenderness Extremities/Musculoskelatal: normal inspection, no calf tenderness Neurologic/Psych: double end tenoner setter II-XII nml as tested, no motor/sensory deficits, + pertinent finding (Pt is lethargic but oriented and could answer questions) Skin: + jaundice Diagnostics Laboratory Results Results Past 24 Hours Test 08/25/16 01:42 08/25/16 03:02 Range/Units Sodium Level 137 136-145 mmol/L Potassium Level 3.0 3.5-5.1 mmol/L Chloride Level 104 98-107 mmol/L Carbon Dioxide Level 24 21-32 mmol/L Anion Gap 9.0 3-11 mmol/L Blood Urea Nitrogen 10 7-18 mg/dl Creatinine 0.58 0.60-1.20 mg/dl Est Creatinine Clear Calc Drug Dose 85.3 ml/min Estimated GFR () 108.2 Estimated GFR (Non- 93.4 BUN/Creatinine Ratio 17.1 10-20 Random Glucose 95 70-99 mg/dl Calcium Level 10.2 8.5-10.1 mg/dl Phosphorus Level 0.6 2.5-4.9 mg/dl Magnesium Level 2.2 1.8-2.4 mg/dl Total Bilirubin 4.0 0.2-1 mg/dl Aspartate Amino Transf (AST/SGOT) 155 15-37 U/L Alanine Aminotransferase (ALT/SGPT) 116 12-78 U/L Alkaline Phosphatase 155 45-117 U/L Total Protein 6.1 6.4-8.2 gm/dl Albumin 3.0 3.4-5.0 gm/dl Globulin 3.1 2.5-4.0 gm/dl Albumin/Globulin Ratio 1.0 0.9-2 Labs prior to trabsfer WBC 21.3, Hb 10.9, Plt [address] abdomen 08/17 1. Stable metastatic bone disease 2. Stable minimal abdominal and pelvic nodular change. 3. No evidence for new or progressive process. 4. Mild stable splenomegaly . 5. Stable slightly complex left renal cyst US abdomen 08/16 1. Heterogeneous hepatic echotexture with multiple subcentimeter hypoechoic hepatic foci. Metastatic disease must be considered. 2. Suboptimal visualization the left kidney with an equivocal mid pole mass 3. Mild dilatation of both renal collecting systems 4. Trace perihepatic fluid 5. Sludge-filled gallbladder 6. CT scanning should be considered in follow-up. Impression Assessment and Plan 71 y/o F history of breast CA with bone mets, recurrent hypercalcemia, poor PO intake, weight loss and electrolyte abnormalities. The pt was transferred to the ER at [place] by request of her Oncologist. She had been to the ER earlier in the day due to weakness and was found to have several lab abnormalities including mild hypercalcemia, hypokalemia and severe hypophosphatemia. Labs also show transaminitis, hyperbilirubinemia, leukocytosis and thrombocytopenia. She denies a fever, SOB, vomiting, diarrhea or dysuria. 1) Weakness and electrolyte abnormalities - including hypercalcemia, hypokalemia , hypophosphatemia. Electrolytes will be repleted - this has improved her condition in the past. It is noted that she is taking Prednisone and would likely be prone to adrenal insufficiency regardless. Her BP has been in the mid 90s. We will obtain a random cortisol and place her on Hydrocortisone TID in the interim. Cont Calcitonin for chronic hypercalcemia. 2) Leukocytosis - UA is negative - she does not have focal symptoms or fevers to justify empiric antibiotics at present. Would trend and consider further workup if her weakness does not improve following electrolyte repletion. 3) Transaminitis, jaundice - recent CT was negative for liver mets which contradicted an ultrasound. Unfortunately I cannot attribute her progressive hepatic impairment to a discrete process. She does not have any abdominal pain to suggest an obstruction. We will obtain a dedicated MRI and consult GI. 4) Anemia, thrombocytopenia - chronic - stable on recent labs 5) Metastatic breast CA - the pt is exhibiting chronic, possibly progressive, weakness, weight loss and general failure to thrive. If a diagnosis of additional metastasis is confirmed, it is not clear if she will tolerate further chemo or immune therapy. We have consulted her oncologist to address this issue. Full code - Heparin prophylaxis Total time for this admit including review of labs, meds, imaging - extensive recent hospital and outpatient records - discussion with pt, family, ER attending 45 min Level of Care Telemetry Resuscitation Status FULL RESUSCITATION VTE Prophylaxis Given or contraindicated: Unfractionated heparin SQ
[2016-08-25] MEDS ORDERED: ZOLPIDEM TARTRATE 5 MG TAB PO PRN (03:15)
[2016-08-25] MEDS ORDERED: ALUMINUM/MAGNESIUM/SIMETH (MAALOX MAX) 30 ML UDC PO PRN (03:15)
[2016-08-25] MEDS ORDERED: POLYETHYLENE (MIRALAX) 17 GM PACK PO PRN (03:15)
[2016-08-25] MEDS ORDERED: ONDANSETRON INJ 2 MG/ML 2 ML VIAL IV PRN (03:15)
[2016-08-25] MEDS ORDERED: MAGNESIUM HYDROXIDE SUSP 30 ML UDC PO PRN (03:15)
[2016-08-25] MEDS ORDERED: ACETAMINOPHEN 325 MG TAB PO PRN (03:15)
[2016-08-25 03:55] VITALS: BP 101/66; PULSE 95; TEMP 36.5; O2SAT 96; Ht 161.9 cm; Wt 68.6 kg
[2016-08-25] MEDS: HYDROCORTISONE IV 50 MG in SYRINGE 0 ML IV SCH ×3 (06:15→21:17)
[2016-08-25] MEDS: D5NSS + 20MEQ KCL 1,000 ML IV SCH ×2 (06:15→20:59)
[2016-08-25] MEDS ORDERED: SODIUM CHLORIDE 0.9% IV ONE (08:00)
[2016-08-25] MEDS ORDERED: POTASSIUM PHOSPHATE IV ONE (08:00)
[2016-08-25 08:21] VITALS: BP 104/69; PULSE 99; TEMP 36.7; O2SAT 95
[2016-08-25] MEDS: CALCITONIN SALMON NA 200 IU/AC 3.7 ML BTL SCH (08:48)
[2016-08-25] MEDS: HEPARIN SOD 5000 UNIT/0.5 ML CARP SQ SCH ×2 (08:49→21:14)
--- NOTE | 2016-08-25 08:53 | Family Medicine Progress Note ---
Progress Note Date of Service Aug 25, 2016. Subjective Pt evaluation today including: conversation w/ patient, conversation w/ family , physical exam, chart review, lab review Pain: denies pain Constitutional: + weakness, + fatigue, No fever, No chills Eyes: No worsening of vision ENT: No hearing loss Respiratory: No cough, No sputum Abdomen: + nausea, + vomiting Musculoskeletal: No joint pain Neurologic: No memory loss Medications Current Inpatient Medications Medications (Trade) Dose Ordered Sig/Danika Route Start Time Stop Time Status Last Admin Dose Admin Anastrozole (Arimidex Tab) 1 mg QAM PO 08/25/16 09:00 09/24/16 08:59 Bisacodyl (Dulcolax Tab) 5 mg UD PRN PO 08/25/16 02:45 09/24/16 02:44 Calcitonin [place] (Fortical Nasal [place]) 1 spray QAM NA 08/25/16 09:00 09/24/16 08:59 08/25/16 08:48 1 SPRAY Docusate Sodium (coLACE CAP) 100 mg BID PRN PO 08/25/16 02:45 09/24/16 02:44 Ondansetron HCl (Zofran Tab) 8 mg Q8 PRN PO 08/25/16 02:45 09/24/16 02:44 Potassium Chloride (Klor-Con Tab) 20 meq QAM PO 08/25/16 09:00 09/24/16 08:59 Famotidine (Pepcid Tab) 10 mg DAILY PRN PO 08/25/16 02:45 09/24/16 02:44 Potassium Chloride/Dextrose/ Sod Cl 1,000 ml @ 125 mls/hr Q8H IV 08/25/16 05:00 08/25/16 20:59 08/25/16 06:15 125 MLS/HR Hydrocortisone Sodium Succinate 50 mg/Syringe 1 ml @ 4 mls/min Q8H IV 08/25/16 06:00 09/24/16 05:59 08/25/16 06:15 4 MLS/MIN Potassium/ Phosphorus/Sodium (Phospha 250 Neutral 155-852-130 Mg) 2 tab QID PO 08/25/16 09:00 09/24/16 08:59 Heparin Sodium (Porcine) (Heparin Sq 5000 Unit/0.5ml) 5,000 unit Q12H SQ 08/25/16 09:00 8/18/17 08:59 08/25/16 08:49 5,000 UNIT Acetaminophen (Tylenol Tab) 650 mg Q4H PRN PO 08/25/16 03:15 09/24/16 03:14 Al Hydrox/Mg Hydrox/Simethicone (Maalox Max Susp) 15 ml Q4H PRN PO 08/25/16 03:15 09/24/16 03:14 Magnesium Hydroxide (Milk Of Magnesia Susp) 30 ml Q12H PRN PO 08/25/16 03:15 09/24/16 03:14 Zolpidem Tartrate (Ambien Tab) 5 mg HSZ PRN PO 08/25/16 03:15 09/24/16 03:14 Ondansetron HCl (Zofran Inj) 4 mg Q6H PRN IV 08/25/16 03:15 09/24/16 03:14 Polyethylene (Miralax Powder Packet) 17 gm DAILY PRN PO 08/25/16 03:15 09/24/16 03:14 Potassium Phosphate 10 mmol/ Sodium Chloride 253.3333 ml @ 150 mls/hr TODAY@0800 ONCE IV 08/25/16 08:00 08/25/16 09:41 08/25/16 08:47 150 MLS/HR Objective Vital Signs Date Time Temp Pulse Resp B/P (MAP) Pulse Ox O2 Delivery O2 Flow Rate FiO2 08/25/16 08:21 36.7 99 16 104/69 (81) 95 Room Air 08/25/16 03:55 36.5 95 20 101/66 96 Room Air 08/25/16 03:34 92 17 106/59 96 08/25/16 03:28 92 17 106/59 96 Room Air 08/25/16 02:54 95 08/25/16 02:49 96 18 114/71 96 Room Air 08/25/16 00:53 36.5 102 20 97/52 97 Room Air Physical Exam General Appearance: WD/WN ENT: hearing grossly normal Neck: supple Respiratory/Chest: chest non-tender, lungs clear, normal breath sounds Cardiovascular: regular rate, rhythm Abdomen: normal bowel sounds, non tender Neurologic/Psychiatric: alert, normal mood/affect, oriented x 3 Skin: normal color Laboratory Results 08/25/16 01:42 Test 08/25/16 01:42 08/25/16 05:34 Anion Gap 9.0 mmol/L (3-11) Est Creatinine Clear Calc Drug Dose 85.3 ml/min Estimated GFR () 108.2 Estimated GFR (Non- 93.4 BUN/Creatinine Ratio 17.1 (10-20) Calcium Level 10.2 mg/dl (8.5-10.1) Phosphorus Level 0.6 mg/dl (2.5-4.9) Magnesium Level 2.2 mg/dl (1.8-2.4) Total Bilirubin 4.0 mg/dl (0.2-1) Aspartate Amino Transf (AST/SGOT) 155 U/L (15-37) Alanine Aminotransferase (ALT/SGPT) 116 U/L (12-78) Alkaline Phosphatase 155 U/L (45-117) Total Protein 6.1 gm/dl (6.4-8.2) Albumin 3.0 gm/dl (3.4-5.0) Globulin 3.1 gm/dl (2.5-4.0) Albumin/Globulin Ratio 1.0 (0.9-2) Random Cortisol 22.28 mcg/dl Assessment and Plan 71-year-old female with a past medical history of breast cancer with bone menostasis , recurrent hypercalcemia, poor by mouth intake, fatigue and weakness presented to the ER with complaints of weakness. She was found to have several abnormalities including Hypokalemia and severe hypophosphatemia and hypercalcemia Weakness/electrolyte abnormalities: Hypercalcemia: Continue calcitonin Hypophosphatemia : Repleted Hypokalemia: Repleted Transaminitis: Liver MRI: 1. Multifocal areas of increased signal throughout the right and left hepatic lobes on both the diffusion and T2 sequences without associated significant enhancement identified is very suspicious for diffuse metastatic disease. Much less likely consideration would include chronic liver disease with regenerative nodules. 2. Trace perihepatic and perisplenic ascites. 3. Expansile lesion of the posterior right 10th rib is only partially imaged. 4. Gallbladder sludge. Concerning for liver metastases - Discussion with family about considering hospice care - Palliative care consult Appreciate oncology and gastroenterology input Full code DVT prophylaxis: Continue heparin subcutaneous History Resident Physician Supervision Note: I was present with Dr. Huang during the history and exam. I discussed the case with the resident and agree with the findings and plan as documented in the note. Any exceptions or clarifications are listed here. Pt resting in bed, significantly improved alertness and interactions per family. Reviewed history - this is the 4th time that she has been inpatient to adjust her electrolytes, each time the adjustment has lasted less time. Her understanding of the initial goal was to stablize her to go back on chemotherapy when last she discussed w/ Dr. Dolan, her oncologist. She understands that her cancer is metastatic to bone and now to liver. She has had hospice mentioned, but never really understood. General Appearance: WD/WN, cachetic Respiratory: chest non-tender, lungs clear, normal breath sounds, no respiratory distress Cardiovascular: normal peripheral pulses, regular rate, rhythm, no edema, no murmur Assessment/Plan 71 y/o female w/ h/o metastatic breast cancer w/ involvement of bone and liver presents w/ recurrent electrolyte disturbance After considerable discussion with the patient and Dr. Lee, the patient is agreeable to home hospice and we will set up w/ a service that would allow for alendronate injections to help control her hypercalcemia Metastatic breast ca - oncology aware and recommendations appreciated - agree with hospice recommendation Hypercalcemia - improving - continue gentle hydration Hypophosphatemia - transition repletion to PO liquid for ease of consumption Hypokalemia - replete PO, recheck in AM Elevated liver enzymes - likely 2/2 metastatic disease in liver confirmed w/ MRI and US Resident Tracking Resident Involvement: Resident Care Provided Care Provided: Adult Hospital Medicine
[2016-08-25] MEDS ORDERED: GADOXETATE DISODIUM IV PRN (10:30)
[2016-08-25] MEDS: POTASSIUM CHLORIDE 20 MEQ TABCR PO SCH (10:36)
[2016-08-25] MEDS: POT PHOSPHATE MONOBASIC W/ SOD TAB PO SCH ×4 (10:37→21:00)
[2016-08-25] MEDS: ANASTROZOLE 1 MG TAB PO SCH ×2 (10:39→11:56)
--- NOTE | 2016-08-25 11:30 | DIAGNOSTIC IMAGING REPORT ---
LIVER COMBO HISTORY: 71 years Female patient has history of bony metastatic breast cancer with multiple hypoechoic subcentimeter foci in the liver on ultrasound dated 08/16/2016, not appreciable by CT. COMPARISON: Ultrasound of the abdomen 08/16/2016, CT abdomen and pelvis 08/16/2016, 06/09/2016 and 07/16/2015. TECHNIQUE: Multiplanar multisequence MRI of the liver is obtained both with and without the use of 10 mL eovist. FINDINGS: Imaged lung bases appear clear. The abdominal aorta is normal in course and caliber. Previously noted expansile lesion of the posterior right 10th rib is better evaluated on comparison CT and bone scan. There is no biliary ductal dilatation. Common bile duct measures up to 5 mm. Mildly prominent gastrohepatic lymph node is seen is nonspecific. Multifocal areas of increased signal seen diffusely throughout the right and left hepatic lobes on the diffusion weighted sequences. Additionally, there are multiple foci of increased signal of the liver on the axial chest images (for example see image 10 of series 3). No discretely enhancing liver masses are seen on the postcontrast images. The liver appears diffusely heterogeneous. There is trace perihepatic and perisplenic ascites which tracks along the paracolic gutters. Pancreas and adrenal glands appear normal. Layering sludge is seen within the gallbladder lumen. There are multiple T2 hyperintense lesions of the bilateral kidneys largest on the right measuring 13 mm enlarged left measuring 7 mm compatible with cysts. Kidneys otherwise appear normal. IMPRESSION: 1. Multifocal areas of increased signal throughout the right and left hepatic lobes on both the diffusion and T2 sequences without associated significant enhancement identified is very suspicious for diffuse metastatic disease. Much less likely consideration would include chronic liver disease with regenerative nodules. 2. Trace perihepatic and perisplenic ascites. 3. Expansile lesion of the posterior right 10th rib is only partially imaged. 4. Gallbladder sludge. The above report was generated using voice recognition software. It may contain grammatical, syntax or spelling errors. Electronically signed by: Alonso Carrington M.D. 08/25/2016 11:28 AM Dictated Date/Time: 08/25/2016 11:00 AM
[2016-08-25 11:48] LABS: HEMATOCRIT 30.5 % (37-47); MEAN CELL VOLUME 102.7 fL (80-100); MEAN CORPUSCULAR HEMOGLOBIN 36.4 pg (25-34); MEAN CORPUSCULAR HGB CONC 35.4 g/dl (32-36); RED BLOOD COUNT 2.97 M/uL (4.2-5.4); WHITE BLOOD COUNT 15.48 K/uL (4.8-10.8)
[2016-08-25 12:05] VITALS: BP 92/53; PULSE 98; TEMP 36.4; O2SAT 99
[2016-08-25 12:12] LABS: MEAN PLATELET VOLUME 10.5 fL (7.4-10.4); PLATELET COUNT 48 K/uL (130-400)
[2016-08-25 12:14] LABS: BUN/CREATININE RATIO 17.1 (10-20); CALCIUM 9.7 mg/dl (8.5-10.1); CREATININE 0.63 mg/dl (0.60-1.20); MAGNESIUM 2.1 mg/dl (1.8-2.4)
[2016-08-25 12:16] LABS: PHOSPHORUS 2.2 mg/dl (2.5-4.9)
--- NOTE | 2016-08-25 14:54 | Oncology Consultation ---
Oncology/Heme Consultation Date of Consultation: Aug 25, 2016. Attending Physician: Juan Carlos Darby MD Reason for Consultation: Patient with history of metastatic breast carcinoma and refractory hypercalcemia is result History of Present Illness Ms. Hernandez is a 71-year-old female that was originally diagnosed as having metastatic breast carcinoma involving a left supraclavicular lymph node and bones and bone marrow in November 2013. She had presented with a defect in the left supraclavicular region that it increased in size and redness and a biopsy was initially read as showing atypical infiltrating cells suspicious for malignancy with the final report suggesting metastatic breast carcinoma. Her hemoglobin with drop shortly afterwards according to records and a bone marrow biopsy would confirm breast carcinoma. She went on to receive systemic chemotherapy such as weekly Abraxane as well as anastrozole. She then went on to receive weekly paclitaxel. Her disease remained stable while taking Arimidex recently she presented with refractory hypercalcemia. Scans of been generally unremarkable except for showing an expansile mass involving a rib in her blood counts have been drifting down. Metabolically the changes are all consistent with hypercalcemia secondary to metastatic disease. Tumor markers of also been considerably more elevated. She has been hospitalized now on at least 3 occasions over the past 6 or 8 weeks for symptoms of hypercalcemia that have been difficult to control. She has received doses of bisphosphonate as well as now Xgeva. She is on nasal calcitonin in addition. Last evening she presented with further fatigue to a local hospital. Calcium was around 11 with an albumin that the physician in the emergency room would recall in record as being essentially normal. She was transferred here. With her last admission about 10 days ago the patient had elevated liver function studies that were new. And ultrasound of the liver suggested some echogenic changes that could be consistent with a stage disease but was far from clear. A CT of the abdomen with contrast was really unremarkable done shortly after that. She presents now with again evidence of recent mild hypercalcemia but also now with worsening liver function studies and a bilirubin of 4.0. Her performance status is 3-4.0. Her appetite is poor. Unfortunately she does not have pain. Past Medical/Surgical History Medical Problems: (1) Dehydration Status: Acute (2) Hypercalcemia Status: Chronic (3) Hypokalemia Status: Acute (4) Hypophosphatemia Status: Acute Family History FHx: cancer Hypertension Social History Smoking Status: Never Smoker Smokeless Tobacco Use: No Drug Use: none Marital Status: Housing Status: lives with family Occupation Status: retired Allergies Coded Allergies: No Known Allergies (Unverified , 08/25/16) Home Medications Scheduled Anastrozole (Anastrozole), 1 TAB PO QAM Calcitonin [place] (Calcitonin-[place]), 1 SPRAY INH QAM Denosumab (Xgeva), 120 MG INJ DIRECTED Potassium Ext Rel (Klor-Con), 20 MEQ PO QAM Prednisone Tab (Prednisone), 10 MG PO QAM Prochlorperazine Maleate (Compazine), 10 MG PO Q6H Zoledronic Acid (Zometa), Unknown Dose IV DIRECTED [Aredia], Unknown Dose IV DIRECTED Scheduled PRN Acetaminophen (Tylenol), 650 MG PO DIRECTED PRN for Pain or Fever Bisacodyl (Dulcolax), 1 TAB PO UD PRN for Constipation Docusate Sodium (Colace), 1 CAP PO BID PRN for Constipation Famotidine (Pepcid Ac), 10 MG PO DIRECTED PRN for Heartburn Ibuprofen (Advil), 200-600 MG PO Q4H PRN for Pain or Fever Ondansetron Hcl (Zofran), 8 MG PO Q8 PRN for Nausea Polyethylene Glycol 3350 (Bulk (Polyethylene Glycol 3350), 17 GM PO DAILY PRN for Constipation Current Inpatient Medications Current Inpatient Medications Medications (Trade) Dose Ordered Sig/Danika Route Start Time Stop Time Status Last Admin Dose Admin Anastrozole (Arimidex Tab) 1 mg QAM PO 08/25/16 09:00 09/24/16 08:59 08/25/16 11:56 1 MG Bisacodyl (Dulcolax Tab) 5 mg UD PRN PO 08/25/16 02:45 09/24/16 02:44 Calcitonin [place] (Fortical Nasal [place]) 1 spray QAM NA 08/25/16 09:00 09/24/16 08:59 08/25/16 08:48 1 SPRAY Docusate Sodium (coLACE CAP) 100 mg BID PRN PO 08/25/16 02:45 09/24/16 02:44 Ondansetron HCl (Zofran Tab) 8 mg Q8 PRN PO 08/25/16 02:45 09/24/16 02:44 Potassium Chloride (Klor-Con Tab) 20 meq QAM PO 08/25/16 09:00 09/24/16 08:59 08/25/16 10:36 20 MEQ Famotidine (Pepcid Tab) 10 mg DAILY PRN PO 08/25/16 02:45 09/24/16 02:44 Potassium Chloride/Dextrose/ Sod Cl 1,000 ml @ 125 mls/hr Q8H IV 08/25/16 05:00 08/25/16 20:59 08/25/16 06:15 125 MLS/HR Hydrocortisone Sodium Succinate 50 mg/Syringe 1 ml @ 4 mls/min Q8H IV 08/25/16 06:00 09/24/16 05:59 08/25/16 14:38 4 MLS/MIN Potassium/ Phosphorus/Sodium (Phospha 250 Neutral 155-852-130 Mg) 2 tab QID PO 08/25/16 09:00 09/24/16 08:59 08/25/16 14:34 2 TAB Heparin Sodium (Porcine) (Heparin Sq 5000 Unit/0.5ml) 5,000 unit Q12H SQ 08/25/16 09:00 09/24/16 08:59 08/25/16 08:49 5,000 UNIT Acetaminophen (Tylenol Tab) 650 mg Q4H PRN PO 08/25/16 03:15 09/24/16 03:14 Al Hydrox/Mg Hydrox/Simethicone (Maalox Max Susp) 15 ml Q4H PRN PO 08/25/16 03:15 09/24/16 03:14 Magnesium Hydroxide (Milk Of Magnesia Susp) 30 ml Q12H PRN PO 08/25/16 03:15 09/24/16 03:14 Zolpidem Tartrate (Ambien Tab) 5 mg HSZ PRN PO 08/25/16 03:15 09/24/16 03:14 Ondansetron HCl (Zofran Inj) 4 mg Q6H PRN IV 08/25/16 03:15 09/24/16 03:14 Polyethylene (Miralax Powder Packet) 17 gm DAILY PRN PO 08/25/16 03:15 09/24/16 03:14 Gadoxetate Disodium (Eovist) 10 ml UD PRN IV 08/25/16 10:30 08/29/16 10:29 Review of Systems Constitutional: Negative for night sweats or fever Eyes: Negative for event change of vision ENT: Negative for epistaxis, nasal discharge, sore throat, or deafness Cardiovascular: Negative for chest pain, palpitations, dizziness, diaphoresis Respiratory: Negative for new shortness of breath,hemoptysis, or purulent cough Gastrointestinal: Negative for diarrhea, hematemesis, melena, nausea, vomiting , or dyspepsia Integumentary (skin): Negative for rash or jaundice discoloration Genitourinary: Negative for urinary frequency, hematuria, or dysuria Neurological: Increased generalized weakness Lymphatic/Hematologic: Negative for petechiae, bleeding or new adenopathy Musculoskeletal: Negative for new joint or back pain Allergic/Immunologic: Negative for unusual rash or pruritis. Physical Exam Date Time Temp Pulse Resp B/P (MAP) Pulse Ox O2 Delivery O2 Flow Rate FiO2 08/25/16 12:56 Room Air 08/25/16 12:05 36.4 98 16 92/53 (66) 99 Room Air 08/25/16 08:21 36.7 99 16 104/69 (81) 95 Room Air 08/25/16 08:00 Room Air 08/25/16 03:55 36.5 95 20 101/66 96 Room Air 08/25/16 03:34 92 17 106/59 96 08/25/16 03:28 92 17 106/59 96 Room Air 08/25/16 02:54 95 08/25/16 02:49 96 18 114/71 96 Room Air 08/25/16 00:53 36.5 102 20 97/52 97 Room Air Constitutional: vitals are stable. She is alert and talkative. and daughter are at bedside Eyes: Eyes are AGUSTINA EOMI without conjuctival erythema or icterus. ENT: External examination was negative for masses. Neck: Negative for masses or palpable thyromegaly Respiratory: Lung sounds were generally clear bilaterally Cardiovascular: Heart was RRR without significant murmur, gallops aoe rubs Gastrointestinal: No palpable hepatic or splenomegaly. The abdomen was soft with normal bowel sounds. Lymphatic system: there was no palpable peripheral lymphadenopathy Musculoskeletal System: The musculoskeletal system seemed concordant with age. Skin: The skin was negative for jaundice. Neurologic exam: The exam was negative for any focal findings. Deep tendon reflexes were equal and symmetrical. Psychiatric exam: Was essentially negative with normal mood and effect. Breast exam: Done with patient permission was negative for palpable masses or corollary supraclavicular or axillary palpable adenopathy. Exam was witnessed by either a relative, business process consultant, or clinic staff. Extremities: Negative for significant edema Laboratory Results Last 24 Hours Test 08/25/16 01:42 08/25/16 05:34 08/25/16 11:34 Sodium Level 137 mmol/L 136 mmol/L Potassium Level 3.0 mmol/L 3.0 mmol/L Chloride Level 104 mmol/L 104 mmol/L Carbon Dioxide Level 24 mmol/L 23 mmol/L Anion Gap 9.0 mmol/L 9.0 mmol/L Blood Urea Nitrogen 10 mg/dl 11 mg/dl Creatinine 0.58 mg/dl 0.63 mg/dl Est Creatinine Clear Calc Drug Dose 85.3 ml/min 77.3 ml/min Estimated GFR () 108.2 105.3 Estimated GFR (Non- 93.4 90.9 BUN/Creatinine Ratio 17.1 17.1 Random Glucose 95 mg/dl 106 mg/dl Calcium Level 10.2 mg/dl 9.7 mg/dl Phosphorus Level 0.6 mg/dl 2.2 mg/dl Magnesium Level 2.2 mg/dl 2.1 mg/dl Total Bilirubin 4.0 mg/dl Aspartate Amino Transf (AST/SGOT) 155 U/L Alanine Aminotransferase (ALT/SGPT) 116 U/L Alkaline Phosphatase 155 U/L Total Protein 6.1 gm/dl Albumin 3.0 gm/dl Globulin 3.1 gm/dl Albumin/Globulin Ratio 1.0 Random Cortisol 22.28 mcg/dl White Blood Count 15.48 K/uL Red Blood Count 2.97 M/uL Hemoglobin 10.8 g/dL Hematocrit 30.5 % Mean Corpuscular Volume 102.7 fL Mean Corpuscular Hemoglobin 36.4 pg Mean Corpuscular Hemoglobin Concent 35.4 g/dl RDW Standard Deviation 78.8 fL RDW Coefficient of Variation 22.2 % Platelet Count 48 K/uL Mean Platelet Volume 10.5 fL Nucleated RBC Absolute Count (auto) 0.40 K/uL Nucleated Red Blood Cells % 2.6 % Assessment & Plan Metastatic breast carcinoma hormone refractory. The MRI of the liver that was done today was reviewed and does show the liver that is heavily infiltrated with a nodular process that I believe is all consistent with metastatic breast carcinoma. The abnormal liver functions along with increased bilirubin will certainly limit the kind of therapies that she could have received. Her last treatment was Xeloda but she was having difficulty swallowing the pills. However along with the abnormal liver function studies and patient's overall declining performance status and the burden of her disease makes it quite unlikely that we will be able to help her with systemic chemotherapy and this was reviewed with her and her relatives today. I stated that predictably our chances of causing more side effects outweighed any sort of meaningful response that she might receive from further attempts at cytoreductive systemic therapy. I suggested at this point that hospice be considered. I originally also included the possibility of doing an MRI of the brain but has a daughter points out if there is nothing to be done systemically than an MRI of the brain will not be helpful and she is correct. With that then I would recommend hospice placement. Her calcium at this time is actually quite reasonable. In order to be able to deliver parenteral bisphosphonates and/or drugs like Xgeva he would be preferable to have a hospice agency that will allow that latitude in this was reviewed with the satellite specialist today. He reviews with me that home nursing agency might be helpful in regard. This was also reviewed with Dr. Darby and staff.
[2016-08-25 15:17] VITALS: BP 109/72; PULSE 99; TEMP 36.3; O2SAT 98
--- NOTE | 2016-08-25 17:00 | Gastrointestinal Consultation ---
Gastrointestinal Consultation Date of Consultation: Aug 25, 2016 Attending Physician: Dr Azevedo Consulting Physician: Dr Manrique Reason for Consultation: abnormal LFTs, abnormal imaging History of Present Illness Patient is a 71 year old female white female with a history of metastatic breast cancer to the bones with wide bony involvement. The patient was admitted through the emergency room overnight and director food and beverage with fatigue constipation poor oral intake weight loss and found to have electrolyte abnormalities. During her initial visit laboratory studies suggested several electrolyte abnormalities and was admitted for correction of these. Additionally her transaminase levels as well as bilirubin and alkaline phosphatase were elevated. She is also has thrombocytopenia. The patient The patient does not have any prior knowledge of liver disease chronic hepatitis and reports recently no fevers chills right upper quadrant pain and except for her constipation she has no other active GI symptoms. During her workup recently she had a ultrasound which suggested lesions in the liver of unclear etiology. However CT scan did not corroborate these findings and no discrete masses were appreciated. She ultimately was scheduled for an MRI of the liver which he underwent earlier today. The patient was last treated with Lotronex AG DA for chemotherapy and has evidence of hypercalcemia. Her past medical history significant for breast cancer hypercalcemia recently diagnosed elevated liver tests and chronic electrolyte abnormalities Family history significant for cancer and hypertension Socially the patient denies tobacco or alcohol usage is . Past Medical/Surgical History Medical Problems: (1) Dehydration Status: Acute (2) Hypercalcemia Status: Chronic (3) Hypokalemia Status: Acute (4) Hypophosphatemia Status: Acute Past Medical History: See above Past Surgical History: See above Family History FHx: cancer Hypertension See above Social History Smoking Status: Never Smoker Alcohol Use: none Drug Use: none Marital Status: Housing Status: lives with family Occupation Status: retired See above Allergies Coded Allergies: No Known Allergies (Unverified , 08/25/16) Current Medications Home Meds and Scripts Medications Dose Route/Sig Max Daily Dose Days Date Category Zometa (Zoledronic Acid) 4 Mg/100 Ml Inj Unknown Dose IV DIRECTED 08/25/16 Reported Xgeva (Denosumab) 120 Mg/1.7 Ml Inj 120 Mg INJ DIRECTED 08/25/16 Reported [Aredia] Unknown Dose IV DIRECTED 08/25/16 Reported Pepcid Ac (Famotidine) 10 Mg Tab 10 Mg PO DIRECTED PRN 08/25/16 Reported Advil (Ibuprofen) 200 Mg Tab 200-600 Mg PO Q4H PRN 08/25/16 Reported Tylenol (Acetaminophen) 325 Mg Tab 650 Mg PO DIRECTED PRN 08/25/16 Reported Colace (Docusate Sodium) 100 Mg Cap 1 Cap PO BID PRN 30 08/25/16 Reported Klor-Con (Potassium Chloride) 20 Meq Tabcr 20 Meq PO QAM 08/13/16 Reported Calcitonin-Simon (Calcitonin Simon) 30 Winn/3.7 Ml Soln 1 Winn INH QAM 08/13/16 Reported Prednisone 10 Mg Tab 10 Mg PO QAM 08/13/16 Reported Dulcolax (Bisacodyl) 5 Mg Tab 1 Tab PO UD PRN 07/28/16 Reported Polyethylene Glycol 3350 (Polyethylene Glycol 3350 (Bulk) 1 Pow Pow 17 Gm PO DAILY PRN 07/28/16 Reported Zofran (Ondansetron HCl) 8 Mg Tab 8 Mg PO Q8 PRN 07/28/16 Reported Compazine (Prochlorperazine Maleate) 10 Mg Tab 10 Mg PO Q6H 07/28/16 Reported Anastrozole 1 Mg Tab 1 Tab PO QAM 12/31/14 Reported Review of Systems Constitutional: + see HPI, + weight loss, + weakness, No fever, No chills, No sweats Eyes: No worsening of vision ENT: No hearing loss Respiratory: No cough, No sputum, No wheezing, No shortness of breath, No dyspnea on exertion Cardiac: No chest pain, No orthopnea, No edema Abdomen: + constipation, No pain, No nausea, No vomiting, No diarrhea, No GI bleeding, No dysphagia, No odynophagia Musculoskeletal: No joint pain Female : No dysuria, No urinary frequency Neuro: No memory loss, No paralysis, No numbness/tingling Psych: + see HPI Heme: No abnormal bleeding/bruising Endo: + fatigue Skin: No rash, No itch Review of systems otherwise noncontributory based on 13 point exam. Physical Exam Date Time Temp Pulse Resp B/P (MAP) Pulse Ox O2 Delivery O2 Flow Rate FiO2 08/25/16 16:00 Room Air 08/25/16 15:17 36.3 99 17 109/72 (84) 98 Room Air 08/25/16 12:56 Room Air 08/25/16 12:05 36.4 98 16 92/53 (66) 99 Room Air 08/25/16 08:21 36.7 99 16 104/69 (81) 95 Room Air 08/25/16 08:00 Room Air 08/25/16 03:55 36.5 95 20 101/66 96 Room Air 08/25/16 03:34 92 17 106/59 96 08/25/16 03:28 92 17 106/59 96 Room Air 08/25/16 02:54 95 08/25/16 02:49 96 18 114/71 96 Room Air 08/25/16 00:53 36.5 102 20 97/52 97 Room Air General Appearance: WD/WN, no apparent distress Eyes: normal inspection ENT: hearing grossly normal Neck: supple, no adenopathy, no JVD Respiratory/Chest: chest non-tender, lungs clear, normal breath sounds, no respiratory distress Cardiovascular: regular rate, rhythm, no edema, no JVD Abdomen: normal bowel sounds, non tender, soft, no organomegaly, no pulsatile mass Extremities: normal range of motion, non-tender, normal inspection, no pedal edema Neurologic/Psych: no motor/sensory deficits, alert, oriented x 3 Skin: no jaundice, warm/dry, no rash Sclera mildly icteric oral mucosa moist. Right upper quadrant does not reveal masses Laboratory Results Last 24 Hours Test 08/25/16 01:42 08/25/16 05:34 08/25/16 11:34 Sodium Level 137 mmol/L 136 mmol/L Potassium Level 3.0 mmol/L 3.0 mmol/L Chloride Level 104 mmol/L 104 mmol/L Carbon Dioxide Level 24 mmol/L 23 mmol/L Anion Gap 9.0 mmol/L 9.0 mmol/L Blood Urea Nitrogen 10 mg/dl 11 mg/dl Creatinine 0.58 mg/dl 0.63 mg/dl Est Creatinine Clear Calc Drug Dose 85.3 ml/min 77.3 ml/min Estimated GFR () 108.2 105.3 Estimated GFR (Non- 93.4 90.9 BUN/Creatinine Ratio 17.1 17.1 Random Glucose 95 mg/dl 106 mg/dl Calcium Level 10.2 mg/dl 9.7 mg/dl Phosphorus Level 0.6 mg/dl 2.2 mg/dl Magnesium Level 2.2 mg/dl 2.1 mg/dl Total Bilirubin 4.0 mg/dl Aspartate Amino Transf (AST/SGOT) 155 U/L Alanine Aminotransferase (ALT/SGPT) 116 U/L Alkaline Phosphatase 155 U/L Total Protein 6.1 gm/dl Albumin 3.0 gm/dl Globulin 3.1 gm/dl Albumin/Globulin Ratio 1.0 Random Cortisol 22.28 mcg/dl White Blood Count 15.48 K/uL Red Blood Count 2.97 M/uL Hemoglobin 10.8 g/dL Hematocrit 30.5 % Mean Corpuscular Volume 102.7 fL Mean Corpuscular Hemoglobin 36.4 pg Mean Corpuscular Hemoglobin Concent 35.4 g/dl RDW Standard Deviation 78.8 fL RDW Coefficient of Variation 22.2 % Platelet Count 48 K/uL Mean Platelet Volume 10.5 fL Nucleated RBC Absolute Count (auto) 0.40 K/uL Nucleated Red Blood Cells % 2.6 % LIVER COMBO HISTORY: 71 years Female patient has history of bony metastatic breast cancer with multiple hypoechoic subcentimeter foci in the liver on ultrasound dated 08/16/2016, not appreciable by CT. COMPARISON: Ultrasound of the abdomen 08/16/2016, CT abdomen and pelvis 08/16/2016, 06/09/2016 and 07/16/2015. TECHNIQUE: Multiplanar multisequence MRI of the liver is obtained both with and without the use of 10 mL eovist. FINDINGS: Imaged lung bases appear clear. The abdominal aorta is normal in course and caliber. Previously noted expansile lesion of the posterior right 10th rib is better evaluated on comparison CT and bone scan. There is no biliary ductal dilatation. Common bile duct measures up to 5 mm. Mildly prominent gastrohepatic lymph node is seen is nonspecific. Multifocal areas of increased signal seen diffusely throughout the right and left hepatic lobes on the diffusion weighted sequences. Additionally, there are multiple foci of increased signal of the liver on the axial chest images (for example see image 10 of series 3). No discretely enhancing liver masses are seen on the postcontrast images. The liver appears diffusely heterogeneous. There is trace perihepatic and perisplenic ascites which tracks along the paracolic gutters. Pancreas and adrenal glands appear normal. Layering sludge is seen within the gallbladder lumen. There are multiple T2 hyperintense lesions of the bilateral kidneys largest on the right measuring 13 mm enlarged left measuring 7 mm compatible with cysts. Kidneys otherwise appear normal. IMPRESSION: 1. Multifocal areas of increased signal throughout the right and left hepatic lobes on both the diffusion and T2 sequences without associated significant enhancement identified is very suspicious for diffuse metastatic disease. Much less likely consideration would include chronic liver disease with regenerative nodules. 2. Trace perihepatic and perisplenic ascites. 3. Expansile lesion of the posterior right 10th rib is only partially imaged. 4. Gallbladder sludge. The above report was generated using voice recognition software. It may contain grammatical, syntax or spelling errors. Electronically signed by: Alonso Carrington M.D. 08/25/2016 11:28 AM Impression Patient is a 71 year old female with a history of breast cancer and bony metastases. The patient has no prior history of chronic or acute liver diseases and LFTs have been reasonably well preserved. Imaging studies recently were varied but on today's MR there is no evidence for ductal dilation although the liver seems to have multiple nodules that are likely consistent with metastatic breast cancer. The bilirubin is 4 although I do not have a direct version at this time. In addition transaminases are 4-5 times normal with a mildly elevated alkaline phosphatase. If these do represent metastatic lesions in the liver this miliary spread is not amenable to endoscopic drainage for jaundice or biliary obstruction. Overall it appears that the patient has exhausted chemotherapy in the past and consideration for hospice is currently being made. If blood work is obtained and shows a rise in bilirubin, would fractionate to ensure that this is mostly direct. In the absence of fevers or significant leukocytosis infectious sources are less likely. Presently I do not believe there are endoscopic options available for Mrs. Skinner. If it remains unsure of the nature of these lesions and it would ultimately influence management, then percutaneous biopsy could confirm metastatic breast cancer although clinically I believe this is the likely cause of her imaging and liver function tests. If you have any questions please don't hesitate to contact our service. Thank you for allowing me to participate in this pleasant lady's care. Plan See above in Impression.
[2016-08-25 17:39] LABS: BUN/CREATININE RATIO 13.8 (10-20); CREATININE 0.65 mg/dl (0.60-1.20); POTASSIUM 2.6 mmol/L (3.5-5.1)
[2016-08-25 19:11] VITALS: BP 96/60; PULSE 102; TEMP 36.9; O2SAT 96
[2016-08-25] MEDS ORDERED: POTASSIUM CHLORIDE 20 MEQ TABCR PO ONE (20:00)
[2016-08-25] MEDS: POTASSIUM CHLR 10 MEQ / WTR 10 MEQ in PREMIXED WATER 100 ML IV SCH ×4 (20:59→23:59)
[2016-08-25 23:26] VITALS: BP 112/70; PULSE 95; TEMP 37; O2SAT 95
[2016-08-26 03:25] VITALS: BP 115/70; PULSE 62; TEMP 37; O2SAT 94
[2016-08-26] MEDS: HYDROCORTISONE IV 50 MG in SYRINGE 0 ML IV SCH ×3 (05:22→21:38)
[2016-08-26 06:35] LABS: HEMATOCRIT 26.5 % (37-47); MEAN CELL VOLUME 103.1 fL (80-100); MEAN CORPUSCULAR HEMOGLOBIN 35.4 pg (25-34); MEAN CORPUSCULAR HGB CONC 34.3 g/dl (32-36); MEAN PLATELET VOLUME 10.4 fL (7.4-10.4); PLATELET COUNT 46 K/uL (130-400); RED BLOOD COUNT 2.57 M/uL (4.2-5.4); WHITE BLOOD COUNT 20.09 K/uL (4.8-10.8)
[2016-08-26 07:39] LABS: BUN/CREATININE RATIO 9.5 (10-20); CALCIUM 8.6 mg/dl (8.5-10.1); CREATININE 0.55 mg/dl (0.60-1.20); POTASSIUM 3.1 mmol/L (3.5-5.1)
[2016-08-26 07:55] VITALS: BP 107/69; PULSE 102; TEMP 36.5; O2SAT 96
[2016-08-26] MEDS: CALCITONIN SALMON NA 200 IU/AC 3.7 ML BTL SCH (08:20)
[2016-08-26] MEDS: POTASSIUM CHLORIDE 20 MEQ TABCR PO SCH ×2 (08:20→09:00)
[2016-08-26] MEDS: POT PHOSPHATE MONOBASIC W/ SOD TAB PO SCH ×4 (08:21→21:41)
[2016-08-26] MEDS: HEPARIN SOD 5000 UNIT/0.5 ML CARP SQ SCH (08:22)
[2016-08-26] MEDS: ANASTROZOLE 1 MG TAB PO SCH (08:22)
--- NOTE | 2016-08-26 08:29 | Clinical Documentation Query ---
QUERY 1 OF [address] PAULINO, In your clinical opinion is this patient being managed for: ( ) Metabolic encephalopathy ( ) Other explanation of clinical findings (Please Explain) ( ) Unable to determine (Please Define) ( ) Need to Discuss ( ) Not Agree The medical record reflects the following clinical findings, treatment, and risk factors. Clinical Indicators:71 yo female presenting with hypercalcemia (11.4 at outside hospital), hypokalemia (3.0 at [facility]), and hypophosphatemia (0.6 at [facility]). She is described as being lethargic by the ER and H/P notes. Subsequent progress note indicates pt's alertness is significantly improved. Treatment: IV K riders, IV K phos, serial labs, klor con po, phospha neutral, hem/onc consults Risk Factors: hypercalcemia, hypokalemia, hypophosphatemia, metastatic breast cancer to bone and liver QUERY 2 OF 2 In your clinical opinion is this patient being managed for: ( ) severe protein-calorie malnutrition ( ) Other explanation of clinical findings (Please Explain) ( ) Unable to determine (Please Define) ( ) Need to Discuss ( ) Not Agree The medical record reflects the following clinical findings, treatment, and risk factors. Clinical Indicators: 71 yo female with decreasing appetite, 7.5% weight loss in the past month. Treatment: IV fluids, I/O, regular diet Risk Factors: breast cancer with mets to bone and liver, poor appetite Chronic Severe Malnutrition Criteria: (2 criteria needed) Energy intake: <75% of estimated energy requirement for > 1 month Wt loss: >5% in 1 month, > 7.5% in 3 months, >10% in 6 months, >20% in 1 year Body fat: severe loss of SQ fat from the orbits, triceps or fat overlying the ribs Muscle mass: severe muscle wasting at the temples, clavicles, shoulders, interosseous spaces, scapula, thigh, calf Fluid accumulation: severe localized or generalized edema of the extremities, vulva, scrotum-wt loss may be masked by edema Please clarify and document your clinical opinion in the progress notes and discharge summary. Terms such as "probable", "suspected", "likely", "questionable", "possible", or "still to be ruled out" are acceptable. IF IN AGREEMENT, YOU MUST DOCUMENT ABOVE DIAGNOSTIC STATEMENT IN DAILY PROGRESS NOTES AND DISCHARGE SUMMARY. This document is not part of the patient's record. Thank You, Laxmi Capps RN [phone]
--- NOTE | 2016-08-26 08:31 | Clinical Documentation Query ---
QUERY 1 OF [address] PETE, In your clinical opinion is this patient being managed for: (X) Metabolic encephalopathy ( ) Other explanation of clinical findings (Please Explain) ( ) Unable to determine (Please Define) ( ) Need to Discuss ( ) Not Agree The medical record reflects the following clinical findings, treatment, and risk factors. Clinical Indicators:71 yo female presenting with hypercalcemia (11.4 at outside hospital), hypokalemia (3.0 at [facility]), and hypophosphatemia (0.6 at [facility]). She is described as being lethargic by the ER and H/P notes. Subsequent progress note indicates pt's alertness is significantly improved. Treatment: IV K riders, IV K phos, serial labs, klor con po, phospha neutral, hem/onc consults Risk Factors: hypercalcemia, hypokalemia, hypophosphatemia, metastatic breast cancer to bone and liver QUERY 2 OF 2 In your clinical opinion is this patient being managed for: ( ) severe protein-calorie malnutrition (X) Other explanation of clinical findings (Please Explain) ( ) Unable to determine (Please Define) ( ) Need to Discuss ( ) Not Agree The medical record reflects the following clinical findings, treatment, and risk factors. Clinical Indicators: 71 yo female with decreasing appetite, 7.5% weight loss in the past month. Treatment: IV fluids, I/O, regular diet Risk Factors: breast cancer with mets to bone and liver, poor appetite Chronic Severe Malnutrition Criteria: (2 criteria needed) Energy intake: <75% of estimated energy requirement for > 1 month Wt loss: >5% in 1 month, > 7.5% in 3 months, >10% in 6 months, >20% in 1 year Body fat: severe loss of SQ fat from the orbits, triceps or fat overlying the ribs Muscle mass: severe muscle wasting at the temples, clavicles, shoulders, interosseous spaces, scapula, thigh, calf Fluid accumulation: severe localized or generalized edema of the extremities, vulva, scrotum-wt loss may be masked by edema Please clarify and document your clinical opinion in the progress notes and discharge summary. Terms such as "probable", "suspected", "likely", "questionable", "possible", or "still to be ruled out" are acceptable. IF IN AGREEMENT, YOU MUST DOCUMENT ABOVE DIAGNOSTIC STATEMENT IN DAILY PROGRESS NOTES AND DISCHARGE SUMMARY. This document is not part of the patient's record. Thank You, Laxmi Capps RN [phone]
--- NOTE | 2016-08-26 09:45 | Hematology/Oncology Prog Note ---
Hematology/Onc Progress Note Date of Service Aug 26, 2016. 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 Medications Medications Administered Medications (Trade) Dose Ordered Sig/Danika Route Start Time Stop Time Status Last Admin Dose Admin Potassium Chloride (Kcl 10 Meq / Wtr) 10 meq NOW STAT IV 08/25/16 02:22 08/25/16 02:23 DC 08/25/16 02:49 10 MEQ Anastrozole (Arimidex Tab) 1 mg QAM PO 08/25/16 09:00 09/24/16 08:59 08/26/16 08:22 1 MG Calcitonin Dupont (Fortical Nasal [employer]) 1 spray QAM NA 08/25/16 09:00 09/24/16 08:59 08/26/16 08:20 1 SPRAY Potassium Chloride (Klor-Con Tab) 20 meq QAM PO 08/25/16 09:00 09/24/16 08:59 08/25/16 10:36 20 MEQ Potassium Chloride/Dextrose/ Sod Cl 1,000 ml @ 125 mls/hr Q8H IV 08/25/16 05:00 08/25/16 20:59 DC 08/25/16 20:59 125 MLS/HR Potassium Phosphate 30 mmol/ Sodium Chloride 510 ml @ 100 mls/hr TODAY@0300 ONCE IV 08/25/16 03:00 08/25/16 08:05 DC 08/25/16 04:04 100 MLS/HR Hydrocortisone Sodium Succinate 50 mg/Syringe 1 ml @ 4 mls/min Q8H IV 08/25/16 06:00 09/24/16 05:59 08/26/16 05:22 4 MLS/MIN Potassium/ Phosphorus/Sodium (Phospha 250 Neutral 155-852-130 Mg) 2 tab QID PO 08/25/16 09:00 09/24/16 08:59 08/26/16 08:21 2 TAB Heparin Sodium (Porcine) (Heparin Sq 5000 Unit/0.5ml) 5,000 unit Q12H SQ 08/25/16 09:00 09/24/16 08:59 08/26/16 08:22 5,000 UNIT Potassium Phosphate 10 mmol/ Sodium Chloride 253.3333 ml @ 150 mls/hr TODAY@0800 ONCE IV 08/25/16 08:00 08/25/16 09:41 DC 08/25/16 08:47 150 MLS/HR Potassium Chloride 10 meq/ Prmx 100 ml @ 100 mls/hr Q1H IV 08/25/16 20:00 08/25/16 23:59 DC 08/25/16 23:59 100 MLS/HR Potassium Chloride (Klor-Con Tab) 40 meq NOW ONCE PO 08/25/16 20:00 08/25/16 20:01 DC 08/25/16 20:59 40 MEQ Subjective She denies pain. She appears more alert. Review of Systems: Constitutional: Negative for night sweats, or fever Eyes: Negative for event change of vision ENT: Negative for epistaxis, nasal discharge, sore throat, or deafness Cardiovascular: Negative for chest pain, palpitations, dizziness, diaphoresis Respiratory: Negative for new shortness of breath,hemoptysis, or purulent cough Gastrointestinal: Negative for diarrhea, hematemesis, melena, nausea, vomiting , or dyspepsia Integumentary (skin): Negative for rash or jaundice discoloration Genitourinary: Negative for urinary frequency, hematuria, or dysuria Neurological: Negative for weakness, seizure activity, headache, or dizziness Lymphatic/Hematologic: Negative for petechiae, bleeding or new adenopathy Musculoskeletal: Negative for new joint or back pain Allergic/Immunologic: Negative for unusual rash or pruritis. Vital Signs Vital Signs Past 12 Hours Date Time Temp Pulse Resp B/P (MAP) Pulse Ox O2 Delivery O2 Flow Rate FiO2 08/26/16 08:06 Room Air 08/26/16 07:55 36.5 102 19 107/69 (82) 96 Room Air 08/26/16 04:00 Room Air 08/26/16 03:25 37.0 62 18 115/70 (85) 94 Room Air 08/26/16 00:02 Room Air 08/25/16 23:26 37.0 95 17 112/70 (84) 95 Room Air Physical Exam Constitutional: vitals are stable. Eyes: Eyes are AGUSTINA EOMI without conjuctival erythema or icterus. ENT: External examination was negative for masses. Neck: Negative for masses or palpable thyromegaly Respiratory: Lung sounds were generally clear bilaterally Cardiovascular: Heart was RRR without significant murmur, gallops aoe rubs Gastrointestinal: No palpable hepatic or splenomegaly. The abdomen was soft with normal bowel sounds. Lymphatic system: there was no palpable peripheral lymphadenopathy Musculoskeletal System: The musculoskeletal system seemed concordant with age. Skin: The skin was negative for jaundice. Neurologic exam: The exam was negative for any focal findings. Deep tendon reflexes were equal and symmetrical. Psychiatric exam: Was essentially negative with normal mood and effect. Breast exam: Not done today Extremities: Negative for edema or erythema Laboratory Last 24 Hours Test 08/25/16 11:34 08/25/16 16:48 08/26/16 05:50 White Blood Count 15.48 K/uL 20.09 K/uL Red Blood Count 2.97 M/uL 2.57 M/uL Hemoglobin 10.8 g/dL 9.1 g/dL Hematocrit 30.5 % 26.5 % Mean Corpuscular Volume 102.7 fL 103.1 fL Mean Corpuscular Hemoglobin 36.4 pg 35.4 pg Mean Corpuscular Hemoglobin Concent 35.4 g/dl 34.3 g/dl RDW Standard Deviation 78.8 fL 81.0 fL RDW Coefficient of Variation 22.2 % 22.2 % Platelet Count 48 K/uL 46 K/uL Mean Platelet Volume 10.5 fL 10.4 fL Nucleated RBC Absolute Count (auto) 0.40 K/uL 0.70 K/uL Nucleated Red Blood Cells % 2.6 % 3.5 % Sodium Level 136 mmol/L 133 mmol/L 138 mmol/L Potassium Level 3.0 mmol/L 2.6 mmol/L 3.1 mmol/L Chloride Level 104 mmol/L 100 mmol/L 106 mmol/L Carbon Dioxide Level 23 mmol/L 24 mmol/L 21 mmol/L Anion Gap 9.0 mmol/L 9.0 mmol/L 11.0 mmol/L Blood Urea Nitrogen 11 mg/dl 9 mg/dl 5 mg/dl Creatinine 0.63 mg/dl 0.65 mg/dl 0.55 mg/dl Est Creatinine Clear Calc Drug Dose 77.3 ml/min 74.9 ml/min 90.0 ml/min Estimated GFR () 105.3 104.3 110.1 Estimated GFR (Non- 90.9 90.0 95.0 BUN/Creatinine Ratio 17.1 13.8 9.5 Random Glucose 106 mg/dl 168 mg/dl 101 mg/dl Calcium Level 9.7 mg/dl 9.0 mg/dl 8.6 mg/dl Phosphorus Level 2.2 mg/dl 1.4 mg/dl Magnesium Level 2.1 mg/dl Assessment & Plan Cc or alert. Laboratories acceptable. I did discuss with build technician's yesterday concerning hospice placement and I understand that there will be a conversation about that later today. The family would like to be able to give parenteral drugs to control the calcium while on hospice and this too was discussed with the family. I will arrange for follow-up in our clinic next week. For now we will sign off the please don't hesitate to reconsult if needed..
[2016-08-26] MEDS ORDERED: NURSING VERBAL MED ORDER ONE (10:30)
[2016-08-26] MEDS: POTASSIUM CHLORIDE 20 MEQ/15 ML UDC PO SCH (10:57)
--- NOTE | 2016-08-26 12:07 | Palliative Care Consultation ---
Consultation Date of Consultation: Aug 26, 2016. Requesting Physician: Dr. Huang Attending Physician: Dr. Huang, Dr. Darby Reason for Consultation: Goals of care, hospice History of Present Illness This 71 year old female with a past medical history of breast cancer with bone metastasis, recurrent hypercalcemia, poor by mouth intake, fatigue and weakness presented to the ER with complaints of weakness and abnormal labs at the oncologist's office. She was found to have several abnormalities including Hypokalemia and severe hypophosphatemia and hypercalcemia. Has been in/out of the hospital for the last 5-6 weeks. She follows with Dr. Dolan for this cancer and they've been having a difficult time trying to replete and maintain electrolytes. Meanwhile, patient has had significant deconditioning and worsening functional status. On previous admission, patient had abnormal liver US suspicious for mets. CT at the time did not show any sign of this. However, this admission, MRI performed which showed extensive liver mets. Oncology is following and have discussed with the family there is no further treatment for the cancer and it was recommended to initiate hospice. Palliative care consulted. I met with the patient, her Emery, daughter Chantale, and case picker LIS Ortiz. Patient is awake and alert, somewhat flat and soft spoken. Is forgetful and possibly a little confused although she can answer questions appropriately. She denies any pain or discomfort. Her biggest issue is the fatigue which has been attributed to the hypercalcemia and electrolyte abnormalities. the patient' s goal is to be at home and not have to keep coming to the hospital. However, she still wants her electrolytes to be treated. She and her stated that they are tired of her having to be stuck with needles for labs, but again are still wanting her issues treated. We had a quite lengthy conversation about disease process and the progression of the cancer. The family verbalized understanding but were quite fixated on the electrolytes and calcium. The patient does want to go home with hospice as long as she is able to receive alendronate and calcitonin. They have a meeting with Home Nursing [facility] this afternoon. Past Medical/Surgical History Medical History: (1) Breast cancer - metastatic to bone (2) Hypercalcemia 3) Chronic electrolyte abnormalities 4) Elevated liver enzymes Social History Smoking Status: Never Smoker History of Alcohol Use: No Drug Use: none Marital Status: Housing Status: lives with family Occupation Status: retired Review of Systems Constitutional: + weakness, + fatigue, + problem reported (poor appetite) Respiratory: No cough, No wheezing, No shortness of breath Cardiac: No chest pain, No edema Abdomen: No pain, No nausea, No vomiting Female : No problem reported Psychiatric: No anxiety Allergies Coded Allergies: No Known Allergies (Unverified , 08/25/16) Medications Current Inpatient Medications Medications (Trade) Dose Ordered Sig/Danika Route Start Time Stop Time Status Last Admin Dose Admin Anastrozole (Arimidex Tab) 1 mg QAM PO 08/25/16 09:00 09/24/16 08:59 08/26/16 08:22 1 MG Bisacodyl (Dulcolax Tab) 5 mg UD PRN PO 08/25/16 02:45 09/24/16 02:44 Calcitonin [place] (Fortical Nasal [place]) 1 spray QAM NA 08/25/16 09:00 09/24/16 08:59 08/26/16 08:20 1 SPRAY Docusate Sodium (coLACE CAP) 100 mg BID PRN PO 08/25/16 02:45 09/24/16 02:44 Ondansetron HCl (Zofran Tab) 8 mg Q8 PRN PO 08/25/16 02:45 09/24/16 02:44 Potassium Chloride (Klor-Con Tab) 20 meq QAM PO 08/25/16 09:00 09/24/16 08:59 08/25/16 10:36 20 MEQ Famotidine (Pepcid Tab) 10 mg DAILY PRN PO 08/25/16 02:45 09/24/16 02:44 Hydrocortisone Sodium Succinate 50 mg/Syringe 1 ml @ 4 mls/min Q8H IV 08/25/16 06:00 09/24/16 05:59 08/26/16 05:22 4 MLS/MIN Potassium/ Phosphorus/Sodium (Phospha 250 Neutral 155-852-130 Mg) 2 tab QID PO 08/25/16 09:00 09/24/16 08:59 08/26/16 08:21 2 TAB Heparin Sodium (Porcine) (Heparin Sq 5000 Unit/0.5ml) 5,000 unit Q12H SQ 08/25/16 09:00 09/24/16 08:59 7/20/17 08:22 5,000 UNIT Acetaminophen (Tylenol Tab) 650 mg Q4H PRN PO 08/25/16 03:15 09/24/16 03:14 Al Hydrox/Mg Hydrox/Simethicone (Maalox Max Susp) 15 ml Q4H PRN PO 08/25/16 03:15 09/24/16 03:14 Magnesium Hydroxide (Milk Of Magnesia Susp) 30 ml Q12H PRN PO 08/25/16 03:15 09/24/16 03:14 Zolpidem Tartrate (Ambien Tab) 5 mg HSZ PRN PO 08/25/16 03:15 09/24/16 03:14 Ondansetron HCl (Zofran Inj) 4 mg Q6H PRN IV 08/25/16 03:15 09/24/16 03:14 Polyethylene (Miralax Powder Packet) 17 gm DAILY PRN PO 08/25/16 03:15 09/24/16 03:14 Gadoxetate Disodium (Eovist) 10 ml UD PRN IV 08/25/16 10:30 08/29/16 10:29 Potassium Chloride (Sammie Ciel Elix) 20 meq QAM PO 08/26/16 12:00 09/25/16 11:59 08/26/16 10:57 20 MEQ Dronabinol (Marinol Cap) 2.5 mg BID PO 08/26/16 21:00 09/25/16 20:59 Physical Exam Date Time Temp Pulse Resp B/P (MAP) Pulse Ox O2 Delivery O2 Flow Rate FiO2 08/26/16 08:06 Room Air 08/26/16 07:55 36.5 102 19 107/69 (82) 96 Room Air 08/26/16 04:00 Room Air 08/26/16 03:25 37.0 62 18 115/70 (85) 94 Room Air 08/26/16 00:02 Room Air 08/25/16 23:26 37.0 95 17 112/70 (84) 95 Room Air 08/25/16 20:00 Room Air 08/25/16 19:11 36.9 102 18 96/60 (72) 96 Room Air 08/25/16 16:00 Room Air 08/25/16 15:17 36.3 99 17 109/72 (84) 98 Room Air 08/25/16 12:56 Room Air General Appearance: no apparent distress ENT: hearing grossly normal Neck: supple, no JVD Respiratory: lungs clear, no respiratory distress, no accessory muscle use Cardiovascular: regular rate, rhythm, + pertinent finding (trace edema to BLE) Abdomen: normal bowel sounds, non tender, soft Neurologic/Psychiatric: alert, normal mood/affect, oriented x 3 Skin: normal color Laboratory Results Last 24 Hours Test 08/25/16 16:48 08/26/16 05:50 Sodium Level 133 mmol/L 138 mmol/L Potassium Level 2.6 mmol/L 3.1 mmol/L Chloride Level 100 mmol/L 106 mmol/L Carbon Dioxide Level 24 mmol/L 21 mmol/L Anion Gap 9.0 mmol/L 11.0 mmol/L Blood Urea Nitrogen 9 mg/dl 5 mg/dl Creatinine 0.65 mg/dl 0.55 mg/dl Est Creatinine Clear Calc Drug Dose 74.9 ml/min 90.0 ml/min Estimated GFR () 104.3 110.1 Estimated GFR (Non- 90.0 95.0 BUN/Creatinine Ratio 13.8 9.5 Random Glucose 168 mg/dl 101 mg/dl Calcium Level 9.0 mg/dl 8.6 mg/dl White Blood Count 20.09 K/uL Red Blood Count 2.57 M/uL Hemoglobin 9.1 g/dL Hematocrit 26.5 % Mean Corpuscular Volume 103.1 fL Mean Corpuscular Hemoglobin 35.4 pg Mean Corpuscular Hemoglobin Concent 34.3 g/dl RDW Standard Deviation 81.0 fL RDW Coefficient of Variation 22.2 % Platelet Count 46 K/uL Mean Platelet Volume 10.4 fL Nucleated RBC Absolute Count (auto) 0.70 K/uL Nucleated Red Blood Cells % 3.5 % Phosphorus Level 1.4 mg/dl Assessment & Plan Palliative Performance Scale: 40 % Problem list: Weakness Poor appetite Electrolyte abnormalities Transaminitis Metastatic breast cancer, liver and bone mets Goals of care (Z51.5) Palliative care recs: -Patient would like to go home with hospice. As long as they are able to provide alendronate and calcitonin. Meeting with [facility] this afternoon. - Emery and Daughter Chantale will be primary caregivers. -Patient has appetite stimulants ordered, although she declines taking them sometimes. -Continue with other medications. Primary care by hospitalist team and oncology. -I did not get to specifically discuss code level, but this should be addressed - certainly before discharge. Thank you kindly for this consult. I will follow as needed.
[2016-08-26 12:37] VITALS: BP 108/71; PULSE 105; TEMP 36.7; O2SAT 96
[2016-08-26 15:35] VITALS: BP 107/71; PULSE 100; TEMP 36.5; O2SAT 97
--- NOTE | 2016-08-26 16:21 | Family Medicine Progress Note ---
Progress Note Date of Service Aug 26, 2016. Subjective Pt evaluation today including: conversation w/ patient, physical exam, chart review, lab review Pain: denies pain Voiding: no voiding problems denies pain. feels somewhat improved today but continues to feel fatigued Constitutional: + weakness, + fatigue, No fever, No chills Eyes: No worsening of vision ENT: No hearing loss Respiratory: No cough Cardiovascular: No chest pain, No orthopnea Abdomen: + problem reported (loss of appetite), No pain, No nausea Female : No dysuria Neurologic: No memory loss Psychiatric: No depression symptoms Heme: No abnormal bleeding/bruising Endo: + fatigue Medications Current Inpatient Medications Medications (Trade) Dose Ordered Sig/Danika Route Start Time Stop Time Status Last Admin Dose Admin Anastrozole (Arimidex Tab) 1 mg QAM PO 08/25/16 09:00 09/24/16 08:59 08/26/16 08:22 1 MG Bisacodyl (Dulcolax Tab) 5 mg UD PRN PO 08/25/16 02:45 09/24/16 02:44 Calcitonin [place] (Fortical Nasal [place]) 1 spray QAM NA 08/25/16 09:00 09/24/16 08:59 08/26/16 08:20 1 SPRAY Docusate Sodium (coLACE CAP) 100 mg BID PRN PO 08/25/16 02:45 09/24/16 02:44 Ondansetron HCl (Zofran Tab) 8 mg Q8 PRN PO 08/25/16 02:45 09/24/16 02:44 Potassium Chloride (Klor-Con Tab) 20 meq QAM PO 08/25/16 09:00 09/24/16 08:59 08/25/16 10:36 20 MEQ Famotidine (Pepcid Tab) 10 mg DAILY PRN PO 08/25/16 02:45 09/24/16 02:44 Hydrocortisone Sodium Succinate 50 mg/Syringe 1 ml @ 4 mls/min Q8H IV 08/25/16 06:00 09/24/16 05:59 08/26/16 15:40 4 MLS/MIN Potassium/ Phosphorus/Sodium (Phospha 250 Neutral 155-852-130 Mg) 2 tab QID PO 08/25/16 09:00 09/24/16 08:59 08/26/16 16:53 2 TAB Acetaminophen (Tylenol Tab) 650 mg Q4H PRN PO 08/25/16 03:15 09/24/16 03:14 Al Hydrox/Mg Hydrox/Simethicone (Maalox Max Susp) 15 ml Q4H PRN PO 08/25/16 03:15 09/24/16 03:14 Magnesium Hydroxide (Milk Of Magnesia Susp) 30 ml Q12H PRN PO 08/25/16 03:15 09/24/16 03:14 Zolpidem Tartrate (Ambien Tab) 5 mg HSZ PRN PO 08/25/16 03:15 09/24/16 03:14 Ondansetron HCl (Zofran Inj) 4 mg Q6H PRN IV 08/25/16 03:15 09/24/16 03:14 Polyethylene (Miralax Powder Packet) 17 gm DAILY PRN PO 08/25/16 03:15 09/24/16 03:14 Gadoxetate Disodium (Eovist) 10 ml UD PRN IV 08/25/16 10:30 08/29/16 10:29 Potassium Chloride (Sammie Ciel Elix) 20 meq QAM PO 08/26/16 12:00 09/25/16 11:59 08/26/16 10:57 20 MEQ Dronabinol (Marinol Cap) 2.5 mg BID PO 08/26/16 21:00 09/25/16 20:59 Objective Vital Signs Date Time Temp Pulse Resp B/P (MAP) Pulse Ox O2 Delivery O2 Flow Rate FiO2 08/26/16 16:00 Room Air 08/26/16 15:35 36.5 100 20 107/71 (83) 97 Room Air 08/26/16 12:37 36.7 105 18 108/71 (83) 96 08/26/16 12:00 Room Air 08/26/16 08:06 Room Air 08/26/16 07:55 36.5 102 19 107/69 (82) 96 Room Air 08/26/16 04:00 Room Air 08/26/16 03:25 37.0 62 18 115/70 (85) 94 Room Air 08/26/16 00:02 Room Air 08/25/16 23:26 37.0 95 17 112/70 (84) 95 Room Air 08/25/16 20:00 Room Air 08/25/16 19:11 36.9 102 18 96/60 (72) 96 Room Air Physical Exam General Appearance: WD/WN, no apparent distress ENT: hearing grossly normal Neck: supple Respiratory/Chest: chest non-tender, lungs clear, normal breath sounds Cardiovascular: regular rate, rhythm Abdomen: normal bowel sounds, non tender Extremities: non-tender, no pedal edema Laboratory Results 08/26/16 05:50 08/26/16 05:50 Test 08/26/16 05:50 Red Blood Count 2.57 M/uL (4.2-5.4) Mean Corpuscular Volume 103.1 fL (80-100) Mean Corpuscular Hemoglobin 35.4 pg (25-34) Mean Corpuscular Hemoglobin Concent 34.3 g/dl (32-36) RDW Standard Deviation 81.0 fL (36.4-46.3) RDW Coefficient of Variation 22.2 % (11.5-14.5) Mean Platelet Volume 10.4 fL (7.4-10.4) Nucleated RBC Absolute Count (auto) 0.70 K/uL (0-0) Nucleated Red Blood Cells % 3.5 % Anion Gap 11.0 mmol/L (3-11) Est Creatinine Clear Calc Drug Dose 90.0 ml/min Estimated GFR () 110.1 Estimated GFR (Non- 95.0 BUN/Creatinine Ratio 9.5 (10-20) Calcium Level 8.6 mg/dl (8.5-10.1) Phosphorus Level 1.4 mg/dl (2.5-4.9) Assessment and Plan 71-year-old female with a past medical history of breast cancer with bone menostasis , recurrent hypercalcemia, poor by mouth intake, fatigue and weakness presented to the ER with complaints of weakness. She was found to have several abnormalities including Hypokalemia and severe hypophosphatemia and hypercalcemia Weakness/electrolyte abnormalities: Hypercalcemia: Continue calcitonin Hypophosphatemia : Repleted Hypokalemia: Repleted dranabinol added for appetite stimulation Transaminitis: Liver MRI: 1. Multifocal areas of increased signal throughout the right and left hepatic lobes on both the diffusion and T2 sequences without associated significant enhancement identified is very suspicious for diffuse metastatic disease. Much less likely consideration would include chronic liver disease with regenerative nodules. 2. Trace perihepatic and perisplenic ascites. 3. Expansile lesion of the posterior right 10th rib is only partially imaged. 4. Gallbladder sludge. Concerning for liver metastases - Discussion with family about considering hospice care - Palliative care consult- appreciate input Appreciate oncology and gastroenterology input Full code DVT prophylaxis: Continue heparin subcutaneous transferred to med/surg History Resident Physician Supervision Note: I was present with Dr. Huang during the history and exam. I discussed the case with the resident and agree with the findings and plan as documented in the note. Any exceptions or clarifications are listed here. Pt resting in bed, mental status improved subjectively from previous evaluation. Having considerable difficulty taking the PO4 because of the consistency. General Appearance: no apparent distress, cachetic Respiratory: chest non-tender, lungs clear, normal breath sounds, no respiratory distress Cardiovascular: normal peripheral pulses, regular rate, rhythm, no edema, no murmur Assessment/Plan 71 y/o female w/ h/o metastatic breast cancer w/ involvement of bone and liver presents w/ recurrent electrolyte disturbance Awaiting coordination w/ Home Nursing Hospice Metastatic breast ca - oncology aware and recommendations appreciated - agree with hospice recommendation, dronabinol Hypercalcemia - improving - encourage PO fluids, calcitonin, alendronate Hypophosphatemia - PO4 repletion PO Hypokalemia - replete PO scheduled Elevated liver enzymes - likely 2/2 metastatic disease in liver confirmed w/ MRI and US Resident Tracking Resident Involvement: Resident Care Provided Care Provided: Adult Hospital Medicine
[2016-08-26] MEDS ORDERED: POTASSIUM PHOS 3 MMOL/1 ML INFUSION IV STA (18:04)
[2016-08-26] MEDS ORDERED: POTASSIUM PHOSPHATE INJ 21 MMOL in SODIUM CHLORIDE 0.9% 500ML 500 ML IV SCH (18:30)
[2016-08-26 19:35] VITALS: BP 110/74; PULSE 100; TEMP 37.1; O2SAT 94
[2016-08-26] MEDS: DRONABINOL 2.5 MG CAP PO SCH (21:41)
[2016-08-26 23:35] VITALS: BP 98/62; PULSE 95; TEMP 36.3; O2SAT 96
[2016-08-27 02:27] VITALS: BP 120/76; PULSE 99; TEMP 36.8; O2SAT 95
[2016-08-27] MEDS: HYDROCORTISONE IV 50 MG in SYRINGE 0 ML IV SCH ×2 (06:30→14:00)
[2016-08-27 07:12] VITALS: BP 100/66; PULSE 98; TEMP 36.3; O2SAT 99
[2016-08-27] MEDS: POTASSIUM CHLORIDE 20 MEQ/15 ML UDC PO SCH (08:58)
[2016-08-27] MEDS: DRONABINOL 2.5 MG CAP PO SCH (08:58)
[2016-08-27] MEDS: ANASTROZOLE 1 MG TAB PO SCH (08:59)
[2016-08-27] MEDS: CALCITONIN SALMON NA 200 IU/AC 3.7 ML BTL SCH (09:00)
[2016-08-27] MEDS: POT PHOSPHATE MONOBASIC W/ SOD TAB PO SCH ×2 (09:00→12:45)
[2016-08-27 09:31] LABS: CALCIUM 8.6 mg/dl (8.5-10.1); CREATININE 0.55 mg/dl (0.60-1.20); MAGNESIUM 1.6 mg/dl (1.8-2.4); POTASSIUM 2.8 mmol/L (3.5-5.1)
[2016-08-27 09:55] LABS: PHOSPHORUS 1.4 mg/dl (2.5-4.9)
[2016-08-27] MEDS ORDERED: NURSING VERBAL MED ORDER ONE (10:30)
[2016-08-27] MEDS ORDERED: POTASSIUM CHLORIDE 20 MEQ/15 ML UDC PO ONE (11:00)
[2016-08-27] MEDS ORDERED: MAGNESIUM SULFATE 1GM / D5W 1 GM in PREMIXED IN D5W 100 ML IV SCH (11:00)
[2016-08-27] MEDS ORDERED: POTASSIUM PHOS 3 MMOL/1 ML INFUSION IV STA (11:36)
[2016-08-27 11:57] VITALS: BP 106/71; PULSE 107; TEMP 36.5; O2SAT 95
[2016-08-27] MEDS ORDERED: POTASSIUM PHOSPHATE INJ 21 MMOL in SODIUM CHLORIDE 0.9% 500ML 500 ML IV SCH (12:00)
[2016-08-27 15:32] VITALS: BP 102/68; PULSE 108; TEMP 36.8; O2SAT 97
[2016-08-27] MEDS ORDERED: POTTAB2 PO (16:33)
[2016-08-27] MEDS ORDERED: POTA20TA16 PO (16:33)
--- NOTE | 2016-08-27 16:43 | Discharge Instructions ---
Discharge Instructions Date of Service Aug 27, 2016. Admission Reason for Admission: Electrolyte Depletion, Weakness Discharge Discharge Diagnosis / Problem: Electrolyte Abnormalities Discharge Goals Goal(s): Decrease discomfort Activity Recommendations Activity Limitations: resume your previous activity . Instructions / Follow-Up Instructions / Follow-Up You came into [facility] because of poor appetite, weight loss and electrolyte abnormalities. In the hospital, we checked your electrolyte levels, and corrected your calcium, phosphate and potassium. We will be discharging you with prescriptions for phosphate and potassium. You can take these as tolerated. Due to the progression of your cancer, you have elected to be discharged on hospice. They will work with you to manage your medications and keep you comfortable. Please be sure to contact them with any of your concerns. Current Hospital Diet Patient's current hospital diet: Regular Diet Discharge Diet Recommended Diet: Regular Diet Pending Studies Studies pending at discharge: no Medical Emergencies . Who to Call and When: Medical Emergencies: If at any time you feel your situation is an emergency, please call 911 immediately. . Non-Emergent Contact Non-Emergency issues call your: Primary Care Provider . . "Provider Documentation" section prepared by Dale Reza. . VTE Core Measure Inpt VTE Proph given/why not?: Unfractionated heparin SQ
[2016-08-27 16:48] VITALS: BP 102/68; PULSE 108; TEMP 36.8; O2SAT 97
--- NOTE | 2016-08-27 18:32 | Family Medicine Progress Note ---
Progress Note Date of Service Aug 27, 2016. Resident Tracking Resident Involvement: Resident Care Provided Care Provided: Adult Hospital Medicine History Resident Physician Supervision Note: I was present with Dr. Reza during the history and exam. I discussed the case with the resident and agree with the findings and plan as documented in the note. Any exceptions or clarifications are listed here. Pt feels that her symptoms are well controlled now that her electrolytes have been corrected. We spent a substantial amount of time (~45 minutes) reviewing POLST form, its relationship to her progressive disease and hospice. They are agreeable to DNR/ DNI status but would like to continue electrolyte correction as an outpatient if possible. The patient has no POA declared, and I have reviewed that process, which they will consider and update as they decide. General Appearance: no apparent distress, cachetic Respiratory: chest non-tender, lungs clear, normal breath sounds, no respiratory distress Cardiovascular: normal peripheral pulses, regular rate, rhythm, no edema, no murmur Assessment/Plan 71 y/o female w/ h/o metastatic breast cancer w/ involvement of bone and liver presents w/ recurrent electrolyte disturbance Transition to home hospice today Metastatic breast ca - oncology aware and recommendations appreciated - agree with hospice recommendation, dronabinol deferred by patient request Hypercalcemia - improving - encourage PO fluids, calcitonin, alendronate Hypophosphatemia - PO4 repletion PO Hypokalemia - replete PO (w/ PO as outpatient) Elevated liver enzymes - likely 2/2 metastatic disease in liver confirmed w/ MRI and US, no further evaluation as requested by pt
--- NOTE | 2016-08-27 19:28 | Discharge Summary ---
Discharge Summary Date of Service Aug 27, 2016. (Dale Reza M.D.) Discharge Summary Admission Date: Aug 25, 2016 at 03:09 Discharge Date: Aug 27, 2016 Discharge Disposition: Home with services (Home Hospice) Principal Diagnosis: Electrolyte Imbalance Problems/Secondary Diagnoses: (1) Hypercalcemia Status: Chronic (Dale Reza M.D.) Medication Reconciliation New Medications: Pot Phosphate Monobasic W/ Sod (Phospha 250 Neutral) 1 Tab Tab 2 TAB PO QID for 30 Days, #240 TAB Changed Medications: Potassium Ext Rel (Klor-Con) 20 Meq Tabcr 40 MEQ PO QAM for 30 Days (Changed from: 20 MEQ) Continued Medications: Acetaminophen (Tylenol) 325 Mg Tab 650 MG PO DIRECTED PRN for Pain or Fever, TAB Anastrozole (Anastrozole) 1 Mg Tab 1 TAB PO QAM Bisacodyl (Dulcolax) 5 Mg Tab 1 TAB PO UD PRN for Constipation Calcitonin [place] (Calcitonin-Burns) 30 [place]/3.7 Ml Soln 1 SPRAY INH QAM Denosumab (Xgeva) 120 Mg/1.7 Ml Inj 120 MG INJ DIRECTED Docusate Sodium (Colace) 100 Mg Cap 1 CAP PO BID PRN for Constipation for 30 Days, #60 CAP Famotidine (Pepcid Ac) 10 Mg Tab 10 MG PO DIRECTED PRN for Heartburn Ibuprofen (Advil) 200 Mg Tab 200-600 MG PO Q4H PRN for Pain or Fever, TAB Ondansetron Hcl (Zofran) 8 Mg Tab 8 MG PO Q8 PRN for Nausea Polyethylene Glycol 3350 (Bulk (Polyethylene Glycol 3350) 1 Pow Pow 17 GM PO DAILY PRN for Constipation Prednisone Tab (Prednisone) 10 Mg Tab 10 MG PO QAM Prochlorperazine Maleate (Compazine) 10 Mg Tab 10 MG PO Q6H for Nausea Zoledronic Acid (Zometa) 4 Mg/100 Ml Inj Unknown Dose IV DIRECTED [Aredia] () Unknown Dose IV DIRECTED Discharge Exam Ms. Hernandez reports that she feels weak today, but better than yesterday. She has been trying to eat, but does not have much of an appetite. She denies chest pain , shortness of breath and syncopal episodes. Review of Systems: Constitutional: + weakness, + fatigue, No fever, No chills, No sweats Respiratory: No cough, No sputum, No wheezing, No shortness of breath Cardiovascular: No chest pain, No orthopnea, No PND Abdomen: No pain, No nausea, No vomiting Physical Exam: General Appearance: WD/WN, no apparent distress Respiratory/Chest: chest non-tender, lungs clear, normal breath sounds, no respiratory distress, no accessory muscle use Cardiovascular: regular rate, rhythm, no edema, no gallop, no JVD, no murmur , normal peripheral pulses Abdomen / GI: normal bowel sounds, non tender, soft, no organomegaly, no pulsatile mass Neurologic/Psychiatric: alert, oriented x 3 Skin: normal color (Dale Reza M.D.) Hospital Course Ms. Hernandez presented to [facility] with poor appetite, weight loss, and electrolyte abnormalities, namely hypercalcemia, hypophosphatemia, and hypokalemia. Her liver enzymes were found to be elevated and she underwent an MRI which showed multiple liver metastases. Her hypercalcemia improved with fluids, calcitonin and alendronate. Her phosphate and potassium were found to be low and these were replenished, and she was discharged home with PO phosphate and potassium replacement. Her prognosis was discussed at length and it was decided that she would transition to home hospice. She also signed a DNR/DNI at this time. Total Time Spent: Less than 30 minutes This includes examination of the patient, discharge planning, medication reconciliation, and communication with other providers. (Dale Reza M.D.) Discharge Instructions Please refer to the electronic Patient Visit Report (Discharge Instructions) for additional information. (Dale Reza M.D.) Additional Copies To Willie Gutierrez D.O. Resident Tracking Resident Involvement: Resident Care Provided Care Provided: [facility] (Dale Reza M.D.) Assessment/Plan Resident Physician Supervision Note: I was present with Dr. Reza during the history and exam. I discussed the case with the resident and agree with the findings and plan as documented in the note. Any exceptions or clarifications are listed here. For full attending documentation, please see accompanying note from day of discharge. (Juan Carlos Darby MD)
== END 2016-08-27 17:15 | disposition hospice, home (50) | DRG 641 ==
LOC: C.EDB 00:53 → C.2T 03:09 → ENRESERV 03:17
PROVIDERS: ADMIT Internal Medicine; ATTEND Family Medicine
DX: E83.52 Hypercalcemia (principal); C78.7 Secondary malignant neoplasm of liver and intrahepatic bile duct; C79.51 Secondary malignant neoplasm of bone; C50.919 Malignant neoplasm of unspecified site of unspecified female breast; E83.39 Other disorders of phosphorus metabolism; E87.6 Hypokalemia; Z51.5 Encounter for palliative care; Z66 Do not resuscitate; Z79.52 Long term (current) use of systemic steroids; Z79.899 Other long term (current) drug therapy